=== PATIENT | female | born 1960 | race Two or more races ===

== ENCOUNTER → 2020-11-12 10:25 | Outpatient (BNVA) | payer MEDICARE, MEDICAID, SELFPAY | PROVIDERS: PCP Otolaryngology; Visit Provider Anesthesiology | DX: M19.012 Primary osteoarthritis, left shoulder (principal); M47.812 Spondylosis without myelopathy or radiculopathy, cervical region; G89.29 Other chronic pain | CPT/HCPCS: 99212 ==

== ENCOUNTER 2020-11-26 10:50 | Outpatient (REF) | payer MEDICARE, MEDICAID, SELFPAY ==
--- NOTE | ~2020-11-26 | MR_ITS ---
EXAMINATION: MR CERVICAL SPINE WITHOUT CONTRAST CLINICAL INFORMATION: 60-year-old with spondylosis without myelopathy or radiculopathy. Left-sided cervical radicular symptoms. COMPARISON: None TECHNIQUE: MRI of the cervical spine was obtained using routine sequences without contrast. FINDINGS: Alignment: Normal. Craniocervical Junction/C1-C2 Articulations:?Intact and aligned. Visualized Intracranial Structures: Within normal limits. Vertebral Bodies: Normal height. Bone Marrow: Subcentimeter benign vertebral hemangioma within the C7 vertebral body. Otherwise unremarkable. No significant bone marrow edema. C2-C3: Disc space height is well maintained. There is mild left-sided facet arthrosis. C3-C4: Disc space height is well maintained. Small central disc protrusion noted with slight flattening of the central dural sac without cord impingement. Minor facet hypertrophic change on the left. C4-C5: Disc space height is well maintained. Minor anterior marginal endplate spurring and minimal central, shallow disc protrusion. Mild facet hypertrophic change on the left. C5-C6: Moderate loss of disc space height and mild anterior marginal endplate spurring. Central disc herniation noted with [id number] flattening of the central dural sac without cord impingement. [id number] facet hypertrophic changes bilaterally, left more than right and mild uncinate process spurring on the left, with moderate left-sided neural foraminal stenosis. Mild central canal stenosis is noted. C6-C7: Disc space height is well maintained. No disc herniation, spondylosis, DJD, canal or neuroforaminal stenosis. C7-T1: Mild loss of disc space height on the right. Small central to right paramedian disc protrusion with mild flattening of the dural sac on the right without cord impingement or neural impingement. Mild facet arthrosis noted on the left and mild ligamentum flavum thickening. No significant canal or neuroforaminal stenosis. Tiny central disc protrusion at T1-2. The cervical and visualized upper thoracic spinal cord is normal in morphology, caliber and signal intensity throughout. MR/MR cervical spine wo con IMPRESSION: 1. Discogenic degenerative changes primarily at C5-6 with a central disc herniation at this level without spinal cord impingement. Mild central spinal stenosis is noted and there is mild spondylosis and facet arthrosis at this level with mild uncovertebral arthrosis on the left and moderate left-sided neural foraminal stenosis. 2. Multilevel predominately central disc protrusions as described above without spinal cord impingement or significant spinal canal stenosis. 3. Minor degrees of multilevel facet arthrosis, left more than right.
== END 2020-11-26 10:51 | disposition home or self-care (01) ==
LOC: HO.MRI 10:50
PROVIDERS: Visit Provider Anesthesiology
DX: M47.812 Spondylosis without myelopathy or radiculopathy, cervical region (principal)
CPT/HCPCS: 72141

== ENCOUNTER → 2020-12-04 13:32 | Outpatient (BNVA) | payer MEDICARE, MEDICAID, SELFPAY | PROVIDERS: PCP Physician Assistant; Visit Provider Nurse Practitioner Family | DX: M47.812 Spondylosis without myelopathy or radiculopathy, cervical region (principal) | CPT/HCPCS: Q3014 ==

== ENCOUNTER 2021-06-17 09:40 | Outpatient (REF) | payer MEDICARE, MEDICAID, SELFPAY ==
[2021-06-17 11:38] LABS: MANUAL DIFF FLAG NO
[2021-06-17 11:42] LABS: Hematocrit 40.1 % (37-47); Hemoglobin 12.8 g/dl (12.0-16.0); Mean Corpuscular HGB Conc 31.9 g/dl (31.0-35.0); Mean Corpuscular Hemoglobin 30.4 pg (27.0-33.0); Mean Corpuscular Volume 95.2 fL (80-98); Red Blood Count 4.21 X10*6/uL (4.20-5.50); White Blood Count 3.8 X10*3/uL (4.8-10.8)
[2021-06-17 11:43] LABS: Basophils Percent Auto 0.8 % (0-2); Eosinophils Absolute Auto 0.1 X10*3/uL (0.0-0.4); Eosinophils Percent Auto 1.9 % (0-4); Imm Gran Abs Auto 0.02 X10*3/uL (0.00-0.03); Imm Gran Pct Auto 0.5 % (0.0-0.4); Lymphocytes Absolute Auto 1.5 X10*3/uL (1.2-4.9); Lymphocytes Percent Auto 38.9 % (20-40); Mean Platelet Volume 12.1 fL (9.4-12.3); Monocytes Absolute Auto 0.4 X10*3/uL (0.1-1.2); Monocytes Percent Auto 11.1 % (2-11); Neutrophils Absolute Auto 1.8 X10*3/uL (2.0-8.3); Neutrophils Percent Auto 46.8 % (45-73); Platelet Count 202 X10*3/uL (160-400); Red Cell Distribution Width 12.7 % (11.0-16.0)
[2021-06-17 12:26] LABS: Erythrocyte Sedimentation Rate 25 MM/HR (0-20)
[2021-06-18 10:30] LABS: IgA 410 mg/dL (70-320); IgG 1340 mg/dL (600-1540); IgM 366 mg/dL (50-300)
[2021-06-19 13:37] LABS: Anti Nuclear Antibody Screen NEGATIVE (NEGATIVE)
[2021-06-22 15:56] LABS: Cyclic Citrullinated Peptide <16 UNITS
[2021-06-23 02:42] LABS: Angiotensin Converting Enzyme 40 U/L (9-67)
[2021-06-23 18:22] LABS: Asperg fumigatus Precip Abs NEGATIVE (NEGATIVE); Micropoly faeni Abs NEGATIVE (NEGATIVE); Pigeon serum Abs NEGATIVE (NEGATIVE); Saccharo pora viridis Abs NEGATIVE (NEGATIVE); Thermo candidus Abs NEGATIVE (NEGATIVE); Thermoa vulgaris #1 NEGATIVE (NEGATIVE)
== END 2021-06-17 09:41 | disposition home or self-care (01) ==
LOC: HO.LAB 09:40
PROVIDERS: PCP Physician Assistant; Visit Provider Hospitalist
DX: R07.81 Pleurodynia (principal); R91.8 Other nonspecific abnormal finding of lung field; R05 Cough
CPT/HCPCS: 36415; 82164; 82784; 82785; 85025; 85652; 86003; 86038; 86039; 86200; 86331; 86606; 86609; 99202

== ENCOUNTER 2021-08-23 09:27 | Outpatient (REF) | payer MEDICARE, MEDICAID, SELFPAY ==
--- NOTE | ~2021-08-23 | CT_ITS ---
EXAMINATION: CT CHEST WITHOUT CONTRAST CLINICAL INFORMATION: Followup pulmonary nodule. COMPARISON: None TECHNIQUE: Multidetector volumetric CT imaging of the chest was done. Axial MIP volume rendering provided. Sagittal and coronal reformatted images were obtained. This CT examination was performed using dose optimization techniques as appropriate, variously including the following: *Automated exposure control *Adjustment of mA and/or kV according to patient size (this includes techniques or standardized protocols for targeted exams where dose is matched to indication/reason for exam; i.e. extremities or head) *Use of iterative reconstruction technique DLP: 101 mGy-cm FINDINGS: LUNGS: There are several small clustered left apical noncalcified left upper lobe nodules, largest measuring 2 mm axial image 70 series 7. There is a 6 mm calcified right upper lobe nodule axial image 99 series 7. There are several small bilateral upper lobe nodules probably representing bronchial soft tissue opacification, for example axial image 197 series 7 in the right upper lobe. There are clustered peribronchial right middle and lower lobe nodules, largest measuring 4 mm axial image 390 and 3 mm 401 series 7 suggestive of tree-in-bud appearance or airways disease. MEDIASTINUM: There are small mediastinal lymph nodes. No enlarged lymph nodes are seen. The heart does not appear enlarged. There is no pericardial effusion. The thoracic aorta is normal in caliber. There may be a small hiatal hernia. PLEURA: There is no pleural effusion. No pleural mass or thickening. AXILLA: No lymphadenopathy. UPPER ABDOMEN: The gallbladder has been removed. OSSEOUS STRUCTURES: Unremarkable. CT/CT chest wo con IMPRESSION: Small pulmonary nodules. Largest pulmonary nodule is a 6 mm calcified right upper lobe nodule. There are small bilateral noncalcified pulmonary nodules suggestive of tree-in-bud appearance or airways disease and bronchial soft tissue opacification. According to the UPDATED 2017 Fleischner Society recommendations, the advised followup imaging for less than 6 mm nodule: Low-risk, no chest CT followup and high-risk, optional chest CT followup in 1 year.
== END 2021-08-23 09:28 | disposition home or self-care (01) ==
LOC: HO.CT 09:27
PROVIDERS: PCP Physician Assistant; Visit Provider Hospitalist
DX: R07.81 Pleurodynia (principal); R91.8 Other nonspecific abnormal finding of lung field
CPT/HCPCS: 71250

== ENCOUNTER → 2021-09-27 09:28 | Outpatient (BNVA) | payer MEDICARE, MEDICAID, SELFPAY | PROVIDERS: PCP Physician Assistant; Visit Provider Hospitalist | DX: R91.8 Other nonspecific abnormal finding of lung field (principal); R05.9 Cough, unspecified; R07.81 Pleurodynia; B02.29 Other postherpetic nervous system involvement | CPT/HCPCS: 99212 ==

== ENCOUNTER → 2022-06-03 10:14 | Outpatient (BNVA) | payer MEDICARE, MEDICAID, SELFPAY | PROVIDERS: PCP Physician Assistant; Visit Provider Hospitalist | DX: K44.9 Diaphragmatic hernia without obstruction or gangrene (principal); R91.8 Other nonspecific abnormal finding of lung field; R07.81 Pleurodynia; K21.9 Gastro-esophageal reflux disease without esophagitis; R05.3 Chronic cough | CPT/HCPCS: 99212 ==

== ENCOUNTER 2022-10-17 10:08 | Outpatient (REF) | payer MEDICARE, MEDICAID, SELFPAY ==
--- NOTE | ~2022-10-17 | CT_ITS ---
EXAMINATION: CT CHEST WITHOUT CONTRAST CLINICAL INFORMATION: Abnormal lung wang. COMPARISON: CT chest 08/23/2021. TECHNIQUE: Multidetector volumetric CT imaging of the chest was done. Axial MIP volume rendering provided. Sagittal and coronal reformatted images were obtained. This CT examination was performed using dose optimization techniques as appropriate, variously including the following: *Automated exposure control *Adjustment of mA and/or kV according to patient size (this includes techniques or standardized protocols for targeted exams where dose is matched to indication/reason for exam; i.e. 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 LUNGS: The lungs are well expanded with multiple small nodules. A calcified 4 mm nodule right lung apex image 73/6, 3 mm two intrabronchial debris or nodules right upper lobe image 184/6, 2 mm intrabronchial nodule right upper lobe anterior segment image 23/4, 2 mm intrabronchial nodule right lower lobe axial image 218/6, 3 mm intrabronchial nodule left lower lobe axial image 215/6, 3 mm nodule right middle lobe image 230/6, 3 mm nodule right middle lobe axial image 246/6, 6 mm intrabronchial nodule right middle lobe axial image 285/6, 5 mm intrabronchial nodule right middle lobe axial image 314/6. There are several additional smaller nodules seen in the right lower lobe and clustered nodules in the right middle lobe similar to previous study. MEDIASTINUM: The thyroid lobes are symmetric and normal. The central trachea and the bronchi are widely patent. Heart size and the great vessels are normal caliber. There is no pericardial effusion. No abnormal size mediastinal or hilar lymph node seen. There is no pericardial effusion. CORONARY ARTERY CALCIFICATION: None visualized on this study. PLEURA: There is no pleural effusion. No pleural mass or thickening. AXILLA: No lymphadenopathy. UPPER ABDOMEN: Visualized liver, spleen, pancreas and bilateral adrenal glands are unremarkable. The gallbladder has been surgically removed. OSSEOUS STRUCTURES: No aggressive lytic or sclerotic process seen. CT/CT chest wo IV con IMPRESSION: 1. Multiple bilateral pulmonary nodules, most of them are intrabronchial. Likely intrabronchial debris or nodules. The largest nodule measures 5 mm in the right middle lobe. A large calcified nodule is an right upper lobe. These nodules are stable. Airway disease involving the bronchus and secondary bronchioles suspicious for bronchiolitis. 2. No abnormal mediastinal or axillary lymphadenopathy seen. Fleischner guidelines were followed.
== END 2022-10-17 10:09 | disposition home or self-care (01) ==
LOC: HO.CT 10:08
PROVIDERS: PCP Physician Assistant; Visit Provider Hospitalist
DX: R91.8 Other nonspecific abnormal finding of lung field (principal)
CPT/HCPCS: 71250

== ENCOUNTER → 2022-12-01 10:24 | Outpatient (BNVA) | payer MEDICARE, MEDICAID, SELFPAY | PROVIDERS: PCP Physician Assistant; Visit Provider Hospitalist | DX: R91.8 Other nonspecific abnormal finding of lung field (principal); R10.11 Right upper quadrant pain; R07.81 Pleurodynia; R05.9 Cough, unspecified; Z90.49 Acquired absence of other specified parts of digestive tract | CPT/HCPCS: 99212 ==

== ENCOUNTER 2023-05-25 10:51 | Outpatient (AMB) | payer MEDICARE, MEDICAID, SELFPAY ==
[2023-05-25 10:56] VITALS: BP 136/70; PULSE 70; O2SAT 98; BMI 22.4
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
== END 2023-05-25 11:22 | disposition home or self-care (01) ==
PROVIDERS: PCP Physician Assistant; Visit Provider Hospitalist
DX: R91.8 Other nonspecific abnormal finding of lung field (principal); R05.9 Cough, unspecified; R07.81 Pleurodynia; K44.9 Diaphragmatic hernia without obstruction or gangrene; K21.9 Gastro-esophageal reflux disease without esophagitis
CPT/HCPCS: 99214

== ENCOUNTER → 2023-05-25 10:51 | Outpatient (BNVA) | payer MEDICARE, MEDICAID, SELFPAY | PROVIDERS: PCP Physician Assistant; Visit Provider Hospitalist | DX: R91.8 Other nonspecific abnormal finding of lung field (principal); R05.3 Chronic cough; R07.81 Pleurodynia; K44.9 Diaphragmatic hernia without obstruction or gangrene; K21.9 Gastro-esophageal reflux disease without esophagitis; Z79.899 Other long term (current) drug therapy | CPT/HCPCS: 99212 ==

== ENCOUNTER 2023-07-31 10:03 | Outpatient (AMB) | payer MEDICARE, MEDICAID, SELFPAY ==
[2023-07-31 10:14] VITALS: BP 124/74; PULSE 85; O2SAT 94; BMI 22.4
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
== END 2023-07-31 10:33 | disposition home or self-care (01) ==
PROVIDERS: PCP Physician Assistant; Visit Provider Hospitalist
DX: R91.8 Other nonspecific abnormal finding of lung field (principal); R05.9 Cough, unspecified; R07.81 Pleurodynia; K44.9 Diaphragmatic hernia without obstruction or gangrene; K21.9 Gastro-esophageal reflux disease without esophagitis
CPT/HCPCS: 99213

== ENCOUNTER 2023-07-31 10:03 | Outpatient (REF) | payer MEDICARE, MEDICAID, SELFPAY ==
[2023-07-31 14:49] LABS: Hematocrit 38.2 % (37.0-47.0); Hemoglobin 12.4 g/dl (12.0-16.0); Mean Corpuscular HGB Conc 32.5 g/dl (31.0-35.0); Mean Corpuscular Hemoglobin 30.7 pg (27.0-33.0); Mean Corpuscular Volume 94.6 fL (80.0-98.0); Mean Platelet Volume 11.1 fL (9.4-12.3); Platelet Count 215 X10*3/uL (160-400); Red Blood Count 4.04 X10*6/uL (4.20-5.50); Red Cell Distribution Width 12.7 % (11.0-16.0); White Blood Count 5.7 X10*3/uL (4.8-10.8)
[2023-07-31 15:40] LABS: Alanine Aminotransferase 16 U/L (0-31); Alkaline Phosphatase 82 U/L (39-117); Anion Gap 14 (12-20); Aspartate Amino Transferase 22 U/L (5-31); Bilirubin Total 0.3 mg/dL (0.0-1.0); Blood Urea Nitrogen 15 mg/dL (9-16); Calcium 9.3 mg/dL (8.4-10.2); Carbon Dioxide 28 mmol/L (22-29); Chloride 105 mmol/L (96-108); Estimated Glomerular Filt Rate > 60; Glucose Random 89 mg/dL (60-115); Potassium 4.5 mmol/L (3.3-5.1); Sodium 142 mmol/L (135-145); Total Protein 7.6 g/dL (6.5-8.0)
[2023-07-31 15:48] LABS: TSH reflex Free T4 1.18 uIU/mL (0.32-4.0); Vitamin D 25-OH Total 38.4 ng/mL (>30)
[2023-08-03 08:25] LABS: HBS Num1 0.24 mIU/mL (0-7.99); HBsAGNum1 0.32 S/CO (0.00-0.99); Hepatitis A Antibody IgG REACTIVE (Nonreactive); Hepatitis B Core Antibody Nonreactive (Nonreactive); Hepatitis B Surface Antigen Negative (Negative); ~Hepatitis A Antibody IgG 8.91 S/CO (0.00-0.99); ~Hepatitis B Surface Antibody NONREACTIVE (Nonreactive); ~Hepatitis C Antibody Nonreactive (Nonreactive)
[2023-08-03 13:44] LABS: Immunoglobulin A 423 mg/dL (70-320)
[2023-08-03 20:13] LABS: Transglutaminase IgA <1.0 U/mL
== END 2023-07-31 10:04 | disposition home or self-care (01) ==
LOC: HO.LAB 10:03
PROVIDERS: Absent Provider Internal Medicine; PCP Physician Assistant; Visit Provider Hospitalist
DX: R10.9 Unspecified abdominal pain (principal); K21.9 Gastro-esophageal reflux disease without esophagitis; M85.80 Other specified disorders of bone density and structure, unspecified site; Z86.010 Personal history of colon polyps; R91.8 Other nonspecific abnormal finding of lung field; R05.9 Cough, unspecified; R07.81 Pleurodynia; K44.9 Diaphragmatic hernia without obstruction or gangrene; Z11.59 Encounter for screening for other viral diseases; Z72.89 Other problems related to lifestyle
CPT/HCPCS: 36415; 80053; 82306; 82784; 84443; 85027; 86364; 86704; 86706; 86708; 86803; 87340; 99202; 99212

== ENCOUNTER 2023-07-31 13:21 | Outpatient (AMB) | payer MEDICARE, MEDICAID, SELFPAY ==
--- NOTE | 2023-07-31 13:23 | MHC.OFFVIS ---
Intake Vital Signs 07/31/23 13:24 Height 5 ft 2 in Weight 123 lb 7.342 oz BMI 22.6 BP 116/65 Blood Pressure Location Lt brachial Position Sitting Pulse 77 Intake Visit Reasons: GERD/cough/HH Intake Note: Georgiana presents in the office as a new patient for GERD and cough. CC: She states that gets pains in her stomach. She thinks she may have a hernia and she feels like that is why she is here. She gets pains in her epigastric pains and she has been having US and MRIs. Supervisor Cell Efficiency Required: No Allergies nitrofurantoin [Macrobid] Allergy (Severe, Verified 07/31/23 13:27) Infection HPI HPI Comments History of Present Illness Details This is a 63y.o F with PMH of multiple pulmonary nodules who is here to establish care for gastrointestinal issues as below. Previous GI used to be at [facility] who recently left so she is looking to switch providers. Was last seen there a year ago. Has had an EGD and colo 3-4 years ago. Reports having polyps removed from the colon. Pt reports that she has been having abd discomfort in epigastrium that radiates to her R side. Started almost 3 months ago. Assoc with nausea and loss of appetite but no unintentional weight loss. Pain is often postprandial, not assoc with bowel habit changes. Did take PPI for this which did not help much. Does not take any NSAIDs. No recent travel. She also mentions that she was told about absorption issues after she had a dexa scan that showed weak bones. [facility] Medical History (Updated 08/03/23 @ 12:56 by Shalonda Quiros MD) Hiatal hernia Hiatal hernia with GERD Post herpetic neuralgia Chest pain Chronic cough Pulmonary nodules Surgical History (Updated 07/31/23 @ 13:28 by CANDICE Roblero) Hx of colonoscopy History of esophagogastroduodenoscopy (EGD) Social History Patient Tobacco Use Status: Never used Tobacco Review of Systems Const All systems reviewed & are unremarkable except as noted in HPI and below Physical Exam Vital Signs: Last Vital Signs Pulse 77 07/31/23 13:24 BP 116/65 07/31/23 13:24 BMI result Body Mass Index 22.6 Gen appear: NAD HEENT: nonicteric, no cervical lymphadenopathy Chest: CTA CVS: Regular S1/S2 Abd: soft, nontender, nondistended, bowel sounds + Ext: no peripheral edema Neuro: A/Ox3, noted to move all extremities spontaneously Psych: interacting appropriately Assessment & Plan Assessment & Plan (1) Abdominal pain: Code(s): R10.9 - Unspecified abdominal pain (2) GERD (gastroesophageal reflux disease): Code(s): K21.9 - Gastro-esophageal reflux disease without esophagitis (3) Osteopenia: Code(s): M85.80 - Other specified disorders of bone density and structure, unspecified site (4) Personal history of colonic polyps: Code(s): Z86.010 - Personal history of colonic polyps Plan Ddx include GERD, malabsorption hugo given reported hx of ostepenia, PUD, IBD. Given pain is mostly R sided, will also check LFTs. Pt is s/p CCY. Will also book her for EGD for furhter eval of epigastric pain to r/o esophagitis, PUD. She was reassured that the hiatal hernia noted on CT was very small and does not appear to be growing based on review of films but in any case will be looked at during EGD. Pt also reports hx of colonic polyps 3-4 years ago on colo done at [facility], but unsure of recall interval. Has records at home and will call office if due. We will also have her sign a release form today to get these from [facility]. Plan: - Labs ordered as below. - EGD to booked in the next few weeks (+/- colo as above) - In the meantime, pt advised to cont taking the pepcid and discuss repeat dexa with her PCP given her reported hx of osteopenia Follow up after EGD Orders: Orders Transglutaminase IgA 07/31/23 R10.9 - Unspecified abdominal pain TSH reflex Free T4 07/31/23 R10.9 - Unspecified abdominal pain Immunoglobulin A 07/31/23 R10.9 - Unspecified abdominal pain Hepatitis B Surface Antibody 07/31/23 R10.9 - Unspecified abdominal pain Complete Blood Count no Diff 07/31/23 R10.9 - Unspecified abdominal pain Comprehensive Met. Panel 07/31/23 R10.9 - Unspecified abdominal pain Hepatitis A IgG 07/31/23 R10.9 - Unspecified abdominal pain Hepatitis B Core Antibody 07/31/23 R10.9 - Unspecified abdominal pain Hepatitis B Surface Antigen 07/31/23 R10.9 - Unspecified abdominal pain Hepatitis C Antibody 07/31/23 R10.9 - Unspecified abdominal pain Vitamin D 25-OH Total 07/31/23 M85.80 - Other specified disorders of bone density and structure, unspecified site Coding Level of Care Code New Pt Level 4 (52220) Diagnoses Abdominal pain R10.9 GERD (gastroesophageal reflux disease) K21.9 Osteopenia M85.80 Personal history of colonic polyps Z86.010
[2023-07-31 13:24] VITALS: BP 116/65; PULSE 77; BMI 22.6
== END 2023-07-31 14:42 | disposition home or self-care (01) ==
PROVIDERS: PCP Physician Assistant; Visit Provider Internal Medicine
DX: R10.9 Unspecified abdominal pain (principal); K21.9 Gastro-esophageal reflux disease without esophagitis; M85.80 Other specified disorders of bone density and structure, unspecified site; Z86.010 Personal history of colon polyps
CPT/HCPCS: 99204

== ENCOUNTER 2023-11-16 14:19 | Outpatient (AMB) | payer MEDICARE, MEDICAID, SELFPAY ==
--- NOTE | 2023-11-16 14:31 | A.OFFVIS_ITS ---
Intake Vital Signs 11/16/23 14:32 Height 5 ft 3 in Weight 119 lb BMI 21.1 BP 109/53 L Blood Pressure Location Lt brachial Position Sitting Pulse 67 Intake Visit Reasons: GERD PT request Intake Note: Patient follow up for GERD. Patient cc: abdominal pain with bloating, acid reflex some swallowing problems and constipation. 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 07/31/23: Previous GI used to be at [facility] who recently left so she is looking to switch providers. Was last seen there a year ago. Has had an EGD and colo 3-4 years ago. Reports having polyps removed from the colon. Pt reports that she has been having abd discomfort in epigastrium that radiates to her R side. Started almost 3 months ago. Assoc with nausea and loss of appetite but no unintentional weight loss. Pain is often postprandial, not assoc with bowel habit changes. Did take PPI for this which did not help much. Does not take any NSAIDs. No recent travel. She also mentions that she was told about absorption issues after she had a dexa scan that showed weak bones. 11/16/23: Was lost to follow up when office tried multiple times to contact her for EGD. Now returning for follow up for essentially unchanged upper GI complaints. Reports frequent postprandial abd discomfort with nausea. Also reports losing 50 lbs in a year however NOT corroborated by weights in chart, remains stable. Labs were reviewed with the pt and are all normal. Pt also had a dexa scan at [place] last month that confirms osteoporosis. [facility] Medical History (Updated 11/16/23 @ 15:01 by Shalonda Quiros MD) Osteopenia Hiatal hernia Hiatal hernia with GERD Post herpetic neuralgia Chest pain Chronic cough Pulmonary nodules Surgical History Hx of colonoscopy History of esophagogastroduodenoscopy (EGD) Social History Patient Tobacco Use Status: Never used Tobacco Review of Systems Const All systems reviewed & are unremarkable except as noted in HPI and below Physical Exam Vital Signs: Last Vital Signs Pulse 67 11/16/23 14:32 BP 109/53 L 11/16/23 14:32 BMI result Body Mass Index 21.1 Gen appear: NAD HEENT: nonicteric, no cervical lymphadenopathy Chest: CTA CVS: Regular S1/S2 Abd: soft, nontender, nondistended, bowel sounds + Ext: no peripheral edema Neuro: A/Ox3, noted to move all extremities spontaneously Psych: interacting appropriately Assessment & Plan Assessment & Plan (1) Abdominal pain: Code(s): R10.9 - Unspecified abdominal pain (2) GERD (gastroesophageal reflux disease): Code(s): K21.9 - Gastro-esophageal reflux disease without esophagitis (3) Personal history of colonic polyps: Code(s): Z86.010 - Personal history of colonic polyps (4) Osteoporosis: Code(s): M81.0 - Age-related osteoporosis without current pathological fracture Plan Based on work up so far, most consistent with GERD +/- esophagitis, IBS, functional dyspepsia. Given pain is mostly R sided, will also get an US RUQ. Pt is s/p CCY, LFTs were normal. Today, willing to get EGD scheduled. Pt also reports hx of colonic polyps 3-4 years ago on colo done at [facility], and does not think she is due for a repeat colo yet. Plan: - EGD to be booked in the next 4-8 weeks - Cont to take Pepcid, PPI deferred due to underlying osteoporosis - She was also advised to discuss tx with her PCP for osteoporosis - US RUQ ordered Follow up after EGD Orders: Orders US abdomen complete Today R10.9 - Unspecified abdominal pain Coding Level of Care Code Est Pt Level 4 (56336) Diagnoses Abdominal pain R10.9 GERD (gastroesophageal reflux disease) K21.9 Personal history of colonic polyps Z86.010 Osteoporosis M81.0
[2023-11-16 14:32] VITALS: BP 109/53; PULSE 67; BMI 21.1
== END 2023-11-16 16:22 | disposition home or self-care (01) ==
PROVIDERS: PCP Physician Assistant; Visit Provider Internal Medicine
DX: R10.9 Unspecified abdominal pain (principal); K21.9 Gastro-esophageal reflux disease without esophagitis; Z86.010 Personal history of colon polyps; M81.0 Age-related osteoporosis without current pathological fracture
CPT/HCPCS: 99214

== ENCOUNTER → 2023-11-16 14:19 | Outpatient (BNVA) | payer MEDICARE, MEDICAID, SELFPAY | PROVIDERS: PCP Physician Assistant; Visit Provider Internal Medicine | DX: K21.9 Gastro-esophageal reflux disease without esophagitis (principal); R10.9 Unspecified abdominal pain; M81.0 Age-related osteoporosis without current pathological fracture; Z86.010 Personal history of colon polyps | CPT/HCPCS: 99212 ==

== ENCOUNTER 2023-11-23 15:13 | Outpatient (REF) | payer MEDICARE, MEDICAID, SELFPAY ==
--- NOTE | ~2023-11-23 | CT_ITS ---
EXAMINATION: CT CHEST WITHOUT CONTRAST CLINICAL INFORMATION: Prior abnormal imaging. Follow-up pulmonary nodules. COMPARISON: 10/17/2022 and 08/23/2021 TECHNIQUE: Multidetector volumetric CT imaging of the chest was done. Axial MIP volume rendering provided. Sagittal and coronal reformatted images were obtained. This CT examination was performed using dose optimization techniques as appropriate, variously including the following: *Automated exposure control *Adjustment of mA and/or kV according to patient size (this includes techniques or standardized protocols for targeted exams where dose is matched to indication/reason for exam; i.e. extremities or head) *Use of iterative reconstruction technique DLP: 89 mGy-cm FINDINGS: LUNGS: There are multiple scattered small nodules most likely representing areas of mucus plugging. No suspicious pulmonary nodules. No airspace consolidation. Central airways are patent. MEDIASTINUM: No bulky axillary, hilar or mediastinal lymphadenopathy. Great vessels are of normal caliber. Heart size is stable. No pericardial effusion. CORONARY ARTERY CALCIFICATION: None visualized on this study. PLEURA: There is no pleural effusion. No pleural mass or thickening. UPPER ABDOMEN: Status post cholecystectomy. OSSEOUS STRUCTURES: No destructive bone lesions. CT/CT chest wo IV con IMPRESSION: Small pulmonary nodules that are most compatible with areas of mucus plugging predominantly involving the right middle lobe. This can be seen in the setting of bronchiolitis.
== END 2023-11-23 15:14 | disposition home or self-care (01) ==
LOC: HO.CT 15:13
PROVIDERS: PCP Physician Assistant; Visit Provider Hospitalist
DX: R91.8 Other nonspecific abnormal finding of lung field (principal)
CPT/HCPCS: 71250

== ENCOUNTER 2023-12-22 07:06 | Day surgery (SDC) | payer MEDICARE, MEDICAID, SELFPAY ==
[2023-12-18 09:44] VITALS: BMI 21.1
--- NOTE | 2023-12-18 15:25 | HO.ANESPROP2 ---
HPI - Anesthesia Eval Consult details Narrative: 63yo F for Upper Endoscopy PMFSH Active Problems Active Problems: All Active Problems (Updated 12/18/23 @ 09:42 by Judi Guthrie RN) Osteoporosis (Acute) Personal history of colonic polyps (Acute) GERD (gastroesophageal reflux disease) (Acute) Abdominal pain (Acute) Osteoarthritis of left shoulder (Acute) Spondylosis of cervical region without myelopathy or radiculopathy (Acute) Chronic pain (Acute) Fibromyalgia (Acute) Hiatal hernia (Acute) Hiatal hernia with GERD (Acute) Post herpetic neuralgia (Acute) Chest pain (Acute) Chronic cough (Acute) Pulmonary nodules (Acute) Past Medical History Medical History (Updated 12/18/23 @ 09:42 by Judi Guthrie RN) Osteopenia Hiatal hernia with GERD Post herpetic neuralgia Chest pain Chronic cough Pulmonary nodules Surgical History Surgical History Hx of colonoscopy History of esophagogastroduodenoscopy (EGD) Social History Social History Patient Tobacco Use Status: Never used Tobacco Meds Allergies Allergy/AdvReac Type Severity Reaction Status Date / Time nitrofurantoin [Macrobid] Allergy Severe Infection Verified 11/16/23 14:28 Home Medications Medication Instructions Recorded Confirmed Last Taken Type aspirin 81 mg tablet,delayed 81 mg PO DAILY 12/04/20 12/18/23 Unknown History release (Adult Aspirin Regimen) betamethasone valerate 0.1 % 1 appl topical DAILY 12/04/20 12/18/23 Unknown History topical ointment diclofenac sodium 1 % topical gel g topical 12/04/20 12/04/20 Unknown History albuterol sulfate 90 mcg/actuation 90 mcg inhalation Q4H PRN 09/27/21 12/18/23 Unknown History aerosol inhaler Shortness Of Breath dicyclomine 10 mg capsule 10 mg PO BID PRN Gastrointestinal 09/27/21 12/18/23 Unknown History Spasms Or Cramping escitalopram oxalate 10 mg tablet 10 mg PO DAILY 09/27/21 12/18/23 Unknown History linaclotide 145 mcg capsule 145 mcg PO DAILY 09/27/21 12/18/23 Unknown History nortriptyline 10 mg capsule 10 mg PO BEDTIME 09/27/21 12/18/23 Unknown History cyclosporine 0.09 % eye drops in a 1 drp ophthalmic (eye) BID 12/01/22 12/18/23 Unknown History dropperette (Cequa) mirabegron 25 mg tablet,extended 25 mg PO DAILY 05/25/23 12/18/23 Unknown History release 24 hr (Myrbetriq) baclofen 10 mg tablet 10 mg PO BID 07/31/23 12/18/23 Unknown History diclofenac sodium 75 mg 75 mg PO BID 07/31/23 12/18/23 Unknown History tablet,delayed release midodrine 2.5 mg tablet 2.5 mg PO BID 07/31/23 12/18/23 Unknown History fludrocortisone 0.1 mg tablet 0.05 mg PO DAILY 11/16/23 12/18/23 Unknown History pantoprazole 40 mg tablet,delayed 40 mg PO BID 11/27/23 12/18/23 Unknown History release Exam Height,Weight and Vital Signs: Height 5 ft 3 in Weight 53.977 kg Pertinent Lab Results Pertinent Lab Results: Laboratory Tests 07/31/23 14:29 WBC 5.7 Hgb 12.4 Hct 38.2 Plt Count 215 Sodium 142 Potassium 4.5 Chloride 105 Carbon Dioxide 28 BUN 15 Creatinine 0.68 Assessment and Plan Assessment Anesthesia Assessment: Chart Reviewed
[2023-12-22 07:27] VITALS: BP 107/57; PULSE 71; RESP 18; TEMP 36.1; O2SAT 99; BMI 21.3
[2023-12-22 07:30] VITALS: BMI 21.3
[2023-12-22] MEDS: Lactated Ringers 1,000 ML 100 ML IVCONT (08:09)
--- NOTE | 2023-12-22 08:09 | P.CONAN_ITS ---
[facility] Active Problems Active Problems: All Active Problems (Updated 12/18/23 @ 09:42 by Judi Guthrie RN) Osteoporosis (Acute) Personal history of colonic polyps (Acute) GERD (gastroesophageal reflux disease) (Acute) Abdominal pain (Acute) Osteoarthritis of left shoulder (Acute) Spondylosis of cervical region without myelopathy or radiculopathy (Acute) Chronic pain (Acute) Fibromyalgia (Acute) Hiatal hernia (Acute) Hiatal hernia with GERD (Acute) Post herpetic neuralgia (Acute) Chest pain (Acute) Chronic cough (Acute) Pulmonary nodules (Acute) Past Medical History Medical History Osteopenia Hiatal hernia with GERD Post herpetic neuralgia Chest pain Chronic cough Pulmonary nodules Patient : No Family History Family history of problems with anesthesia: No Surgical History Surgical History Hx of colonoscopy History of esophagogastroduodenoscopy (EGD) Social History Social History Patient Tobacco Use Status: Never used Tobacco Meds Allergies Allergy/AdvReac Type Severity Reaction Status Date / Time nitrofurantoin [Macrobid] Allergy Severe Infection Verified 11/16/23 14:28 Active Medications: Current Medications Lactated Ringer's (Lr) 1,000 mls @ 100 mls/hr IVCONT .Q10H [facility] Home Medications Medication Instructions Recorded Confirmed Last Taken Type aspirin 81 mg tablet,delayed 81 mg PO DAILY 12/04/20 12/18/23 Unknown History release (Adult Aspirin Regimen) betamethasone valerate 0.1 % 1 appl topical DAILY 12/04/20 12/18/23 Unknown History topical ointment diclofenac sodium 1 % topical gel g topical 12/04/20 12/04/20 Unknown History albuterol sulfate 90 mcg/actuation 90 mcg inhalation Q4H PRN 09/27/21 12/18/23 Unknown History aerosol inhaler Shortness Of Breath dicyclomine 10 mg capsule 10 mg PO BID PRN Gastrointestinal 09/27/21 12/18/23 Unknown History Spasms Or Cramping escitalopram oxalate 10 mg tablet 10 mg PO DAILY 09/27/21 12/18/23 Unknown History linaclotide 145 mcg capsule 145 mcg PO DAILY 09/27/21 12/18/23 Unknown History nortriptyline 10 mg capsule 10 mg PO BEDTIME 09/27/21 12/18/23 Unknown History cyclosporine 0.09 % eye drops in a 1 drp ophthalmic (eye) BID 12/01/22 12/18/23 Unknown History dropperette (Cequa) mirabegron 25 mg tablet,extended 25 mg PO DAILY 05/25/23 12/18/23 Unknown History release 24 hr (Myrbetriq) baclofen 10 mg tablet 10 mg PO BID 07/31/23 12/18/23 Unknown History diclofenac sodium 75 mg 75 mg PO BID 07/31/23 12/18/23 Unknown History tablet,delayed release midodrine 2.5 mg tablet 2.5 mg PO BID 07/31/23 12/18/23 Unknown History fludrocortisone 0.1 mg tablet 0.05 mg PO DAILY 11/16/23 12/18/23 Unknown History pantoprazole 40 mg tablet,delayed 40 mg PO BID 11/27/23 12/18/23 Unknown History release Exam Height,Weight and Vital Signs: Height 5 ft 3 in Weight 54.431 kg Last Vital Signs Temp 96.9 F 12/22/23 07:27 Pulse 71 12/22/23 07:27 Resp 18 12/22/23 07:27 BP 107/57 L 12/22/23 07:27 Pulse Ox 99 12/22/23 07:27 O2 Del Method Room Air 12/22/23 07:27 Airway Mallampati Class: II TM Dist: >3cm Neck ROM: Full Heart: RRR Lungs: CTA Assessment and Plan Assessment Anesthesia Assessment: Anesthesia Plan Discussed Final Anesthetic Review Family History of Problems with Anesthesia: No ASA Class: II Final Preanesthetic Review: Meds/Allgs Chart Reviewed, Consent Obtained/Reviewed and Anes Risks/Benef Reviewed Patient Risk: Low Procedure Risk: Low Anesthetic Plan Anesthetic Plan: MAC: Disposition: Standard PACU
--- NOTE | 2023-12-22 08:16 | P.OP_ITS ---
Operative Note Operative Note Date of Service: 12/22/23 Narrative: Procedure: Esophagogastroduodenoscopy Endoscopist: Shalonda Quiros MD Indication: Abd pain Anesthesia Provider: Dr Keri Rodriguez Anesthesia Type: MAC ?? EGD Procedure:?? The procedure, indications, preparation and potential complications were reviewed with the patient, who indicated understanding and gave written informed consent to proceed. A physical exam was performed. The endoscope was introduced through the mouth, and advanced to the second part of duodenum. The mucosa was carefully examined on slow withdrawal of the endoscope. The patient tolerated the procedure well. There were no immediate complications.? ? EGD Findings:? * Esophagus:? Normal mucosa noted in the entire esophagus. The Z line was at 34 cm and irregular to 33 cm. Cold forceps biopsies were taken to rule out Nathan's esophagus. If dysplasia present, this will also be sent for tissue cypher. A medium sized hiatal hernia was noted with the diaphragmatic pinch at 36 cm. * Stomach:? Normal mucosa was noted in the stomach. A few polyps were noted in the body of the stomach. Retroflexion in the cardia showed Hill grade II hiatal hernia. Random gastric biopsies were taken to rule out H Pylori infection. * Duodenum:? Normal mucosa was noted in the whole of the examined duodenum. Cold forceps biopsies were taken from duodenal bulb and second portion of the duodenum to rule out celiac sprue. ? EGD Impressions:? * Irregular Z line (biopsy) * Hiatal hernia * Gastric polyps * Normal gastric mucosa (biopsy) * Normal duodenum (biopsy) ?? Recommendations:?? * Follow biopsy results. Our office will call or send a letter with results within 7-10 days. * If H pylori +, patient will be prescribed eradication therapy followed by test of cure. * No evidence of erosive esophagitis on exam today. Can consider Phipps study off PPI if GERD remains a concern. * Avoid NSAIDs. Above has been reviewed with the patient.
--- NOTE | 2023-12-22 08:16 | MHC.SHP ---
Pre-Procedural Eval Section A - 24 Hr Update-Section A only Date of Service: 12/22/23 Section B - Complete if H&P > 30 days Chief Complaint: gerd, abdominal pain Details of Present Illness: PMH Osteopenia Hiatal hernia Hiatal hernia with GERD Post herpetic neuralgia Chest pain Chronic cough Pulmonary nodules Surgical History Hx of colonoscopy History of esophagogastroduodenoscopy (EGD) Present Medications: see Short Stay Collaborative assessment Allergies: Allergies Allergy/AdvReac Type Severity Reaction Status Date / Time nitrofurantoin [Macrobid] Allergy Severe Infection Verified 11/16/23 14:28 Review of Systems Review of Systems Comment: 10 point ROS negative Exam Surgical H&P Exam: Normal: HEENT, Normal: Heart, Normal: Lungs, Normal: Extremities, Normal: Abdomen, Normal: Skin and Normal: Neurological Plan Diagnosis/Plan: Unchanged I have reviewed the history and physical and performed a pertinent physical examination on my patient. No changes have occurred unless specified. Time Spent With Patient Time: Total time managing care of this patient today ____ minutes.
[2023-12-22 08:49] VITALS: BP 89/41; PULSE 71; RESP 16; TEMP 36.1; O2SAT 98
[2023-12-22 09:11] VITALS: BP 119/62; PULSE 68; RESP 17; TEMP 36.1; O2SAT 99
--- NOTE | 2023-12-22 10:26 | HO.POSTANES ---
Post Anesthesia Evaluation Post Anesthesia Evaluation Date of Service: 12/22/23 Vital Signs: Vital Signs Temp Pulse Resp BP Pulse Ox O2 Del Method 12/22/23 09:11 97.0 F 68 17 119/62 99 Room Air 12/22/23 08:49 97.0 F 71 16 89/41 L 98 Room Air 12/22/23 07:27 96.9 F 71 18 107/57 L 99 Room Air Anesthesia: Monitored Mental Status: Awake Pain Control: Satisfactory Nausea/Vomiting: None Hydration: Adequate Anesthesia-Related Issues: No Anes. Related Issues
== END 2023-12-22 10:13 | disposition home or self-care (01) ==
PROVIDERS: PCP Physician Assistant; Visit Provider Internal Medicine
PROC: 0DJ08ZZ Inspection of Upper Intestinal Tract, Via Natural or Artificial Opening Endoscopic (ICD-10-PCS; CPT 43235; principal; 2023-12-22 08:20)
DX: K31.7 Polyp of stomach and duodenum (principal); K22.70 Barrett's esophagus without dysplasia; K29.60 Other gastritis without bleeding; K22.9 Disease of esophagus, unspecified; K44.9 Diaphragmatic hernia without obstruction or gangrene; K21.9 Gastro-esophageal reflux disease without esophagitis; M81.0 Age-related osteoporosis without current pathological fracture
CPT/HCPCS: 43239; 88305; 88313; 88342; J2704

== ENCOUNTER → 2023-12-22 07:06 | Outpatient (BNV) | payer MEDICARE, MEDICAID, SELFPAY | PROVIDERS: PCP Physician Assistant; Visit Provider Internal Medicine | DX: R10.9 Unspecified abdominal pain (principal); K31.7 Polyp of stomach and duodenum; K29.70 Gastritis, unspecified, without bleeding; K22.70 Barrett's esophagus without dysplasia | CPT/HCPCS: 43239 ==

== ENCOUNTER 2024-01-06 10:46 | Outpatient (AMB) | payer MEDICARE, MEDICAID, SELFPAY ==
--- NOTE | 2024-01-06 11:08 | MHC.OFFVIS ---
Intake Vital Signs 01/06/24 11:11 Height 5 ft 3 in Weight 116 lb 13.52 oz BMI 20.7 Intake Visit Reasons: S/P EGD; Dr. Quiros Intake Note: Georgiana presents in the office as a follow up EGD. CC: She is a little unsure of her medications because she states she is sick and tired of all the medications. She states that she is having a pain that went from her head to her ears. She states that her pain in the same and she is not sure what is going on. Right flank pains, stomach pains and bloating when she eats. Allergies nitrofurantoin [Macrobid] Allergy (Severe, Verified 01/06/24 11:09) Infection HPI HPI Comments History of Present Illness Details This is a 63y.o F with PMH of multiple pulmonary nodules who is here for follow up. 07/31/23: Previous GI used to be at [facility] who recently left so she is looking to switch providers. Was last seen there a year ago. Has had an EGD and colo 3-4 years ago. Reports having polyps removed from the colon. Pt reports that she has been having abd discomfort in epigastrium that radiates to her R side. Started almost 3 months ago. Assoc with nausea and loss of appetite but no unintentional weight loss. Pain is often postprandial, not assoc with bowel habit changes. Did take PPI for this which did not help much. Does not take any NSAIDs. No recent travel. She also mentions that she was told about absorption issues after she had a dexa scan that showed weak bones. 11/16/23: Was lost to follow up when office tried multiple times to contact her for EGD. Now returning for follow up for essentially unchanged upper GI complaints. Reports frequent postprandial abd discomfort with nausea. Also reports losing 50 lbs in a year however NOT corroborated by weights in chart, remains stable. Labs were reviewed with the pt and are all normal. Pt also had a dexa scan at [place] last month that confirms osteoporosis. 12/22/23: Irregular Z line (biopsy) Hiatal hernia Gastric polyps Normal gastric mucosa (biopsy) Normal duodenum (biopsy) Path: A. Duodenum, biopsy: Duodenal mucosa within normal limits; preserved villous architecture and no increase in intraepithelial lymphocytes seen. B. Stomach, biopsy: Gastric antral mucosa with mild chronic inactive gastritis; gastric body mucosa within normal limits; negative for Helicobacter pylori, intestinal metaplasia and dysplasia. C. Gastroesophageal junction, biopsy: Squamous and columnar junctional mucosa with mild chronic active inflammation; negative for intestinal metaplasia and dysplasia. 01/06/24: Here for post EGD follow up. Results of the EGD and path reviewed which are overall reassuring. Reports no change in sx. Still complains of chest pain and pressure with bloating. Has been taking omeprazole. Stopped her nortriptyline a few months ago - she is unsure if she ran out or was asked to stop it to avoid a drug interaction. In fact tells me she stopped all her meds a few weeks ago. From chart review - has hx of anxiety and adjustment disorder. Used to see [facility] but could not form a rapport with the new therapist so stopped going 2 years ago. Also noted to have osteoporosis on dxa 09/2023 but has not been seen by endocrine. [facility] Medical History Osteopenia Hiatal hernia with GERD Post herpetic neuralgia Chest pain Chronic cough Pulmonary nodules Surgical History Hx of colonoscopy History of esophagogastroduodenoscopy (EGD) Social History Patient Tobacco Use Status: Never used Tobacco Review of Systems Const All systems reviewed & are unremarkable except as noted in HPI and below Physical Exam Vital Signs: BMI result Body Mass Index 20.7 NAD no overt resp distress Abd soft, nontender, nodistended A/Ox3, norm gait Assessment & Plan Assessment & Plan (1) Abdominal pain: Code(s): R10.9 - Unspecified abdominal pain (2) GERD (gastroesophageal reflux disease): Code(s): K21.9 - Gastro-esophageal reflux disease without esophagitis (3) Personal history of colonic polyps: Code(s): Z86.010 - Personal history of colonic polyps (4) Osteoporosis: Code(s): M81.0 - Age-related osteoporosis without current pathological fracture Plan Based on work up so far, 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 Expressed concern over multiple exposures to radiation any way due to pulm nodules but pt reports she is quite stressed about persistent abd pain and bloating and requests CT Abd/pel. Was on nortriptyline in the past but pt off it now for a few months for unclear reasons - she mentions was told to stop it but doesnt remember by who. Advised to go over med reconciliation with her PCP - hugo as she stopped all her meds recently; and if no medical indication to hold it, would recommend resuming it at 10 and increasing to 20 as below. Plan: - CT Abd/pel with IV contrast - Follow up with PCP to discuss med reconciliation as outlined above - Resume nortriptyline 10 and increase to 20 after 2 weeks - Pt encouraged to discuss endocrine referral with PCP as well - She should also follow up with [facility] for therapy - Pt also reports hx of colonic polyps 3-4 years ago on colo done at [facility], and does not think she is due for a repeat colo yet. Follow up 3 months Orders: Orders CT abdomen pelvis w IV con Today R10.9 - Unspecified abdominal pain Patient Instructions: - Please follow up with your PCP on urgent basis to go over all the medications - in future please call them before you stop any of your meds. - Pls check with your PCP why nortriptyline was stopped - from GI standpoint would recommend resuming it - You may need a referral to endocrinology for weak bones (osteoporosis) - We are also ordering a CT Abdomen for your persistent lower abd pain Coding Level of Care Code Est Pt Level 4 (42250) Diagnoses Abdominal pain R10.9 GERD (gastroesophageal reflux disease) K21.9 Personal history of colonic polyps Z86.010 Osteoporosis M81.0
[2024-01-06 11:11] VITALS: BMI 20.7
== END 2024-01-06 11:42 | disposition home or self-care (01) ==
PROVIDERS: PCP Physician Assistant; Visit Provider Internal Medicine
DX: R10.9 Unspecified abdominal pain (principal); K21.9 Gastro-esophageal reflux disease without esophagitis; Z86.010 Personal history of colon polyps; M81.0 Age-related osteoporosis without current pathological fracture
CPT/HCPCS: 99214

== ENCOUNTER → 2024-01-06 10:46 | Outpatient (BNVA) | payer MEDICARE, MEDICAID, SELFPAY | PROVIDERS: PCP Physician Assistant; Visit Provider Internal Medicine | DX: R10.9 Unspecified abdominal pain (principal); K21.9 Gastro-esophageal reflux disease without esophagitis; M81.0 Age-related osteoporosis without current pathological fracture; Z86.010 Personal history of colon polyps | CPT/HCPCS: 99212 ==

== ENCOUNTER 2024-01-29 09:40 | Outpatient (AMB) | payer MEDICARE, MEDICAID, SELFPAY ==
[2024-01-29 09:51] VITALS: BP 102/68; PULSE 79; O2SAT 97; BMI 21.3
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
== END 2024-01-29 10:17 | disposition home or self-care (01) ==
PROVIDERS: PCP Physician Assistant; Visit Provider Hospitalist
DX: R91.8 Other nonspecific abnormal finding of lung field (principal); R05.9 Cough, unspecified; R07.81 Pleurodynia; K44.9 Diaphragmatic hernia without obstruction or gangrene; K21.9 Gastro-esophageal reflux disease without esophagitis
CPT/HCPCS: 99214

== ENCOUNTER → 2024-01-29 09:40 | Outpatient (BNVA) | payer MEDICARE, MEDICAID, SELFPAY | PROVIDERS: PCP Physician Assistant; Visit Provider Hospitalist | DX: R91.8 Other nonspecific abnormal finding of lung field (principal); K44.9 Diaphragmatic hernia without obstruction or gangrene; R05.3 Chronic cough; R07.81 Pleurodynia; K21.9 Gastro-esophageal reflux disease without esophagitis | CPT/HCPCS: 99212 ==

== ENCOUNTER 2024-02-22 15:08 | Outpatient (AMB) | payer MEDICARE, MEDICAID, SELFPAY ==
--- NOTE | 2024-02-22 15:12 | A.OFFVIS_ITS ---
Vital Signs 02/22/24 15:14 Height 5 ft 3 in Weight 121 lb 4.068 oz BMI 21.5 BP 94/59 L Blood Pressure Location Lt brachial Position Sitting Pulse 85 Intake Visit Reasons: Abdominal pain Intake Note: Georgiana presents in the office as a follow up for abdominal pains. CC: BP has been low and she was told to stop her meds to see what it could be but she states that they have not found anything. She has pains in her stomach - no irregular bowel movements. She states that she goes normally. She states she has been fatigued, nausea and dealing with headaches as well. Complained of numbness in her mouth and lips. Audiovisual Production Specialist Required: No Allergies nitrofurantoin [Macrobid] Allergy (Severe, Verified 02/22/24 15:14) Infection HPI Comments Details: This is a 63y.o F with PMH of multiple pulmonary nodules who is here for follow up. 07/31/23: Previous GI used to be at [facility] who recently left so she is looking to switch providers. Was last seen there a year ago. Has had an EGD and colo 3-4 years ago. Reports having polyps removed from the colon. Pt reports that she has been having abd discomfort in epigastrium that radiates to her R side. Started almost 3 months ago. Assoc with nausea and loss of appetite but no unintentional weight loss. Pain is often postprandial, not assoc with bowel habit changes. Did take PPI for this which did not help much. Does not take any NSAIDs. No recent travel. She also mentions that she was told about absorption issues after she had a dexa scan that showed weak bones. 11/16/23: Was lost to follow up when office tried multiple times to contact her for EGD. Now returning for follow up for essentially unchanged upper GI complaints. Reports frequent postprandial abd discomfort with nausea. Also reports losing 50 lbs in a year however NOT corroborated by weights in chart, remains stable. Labs were reviewed with the pt and are all normal. Pt also had a dexa scan at [place] last month that confirms osteoporosis. 12/22/23: * Irregular Z line (biopsy) * Hiatal hernia * Gastric polyps * Normal gastric mucosa (biopsy) * Normal duodenum (biopsy) Path: A. Duodenum, biopsy: Duodenal mucosa within normal limits; preserved villous architecture and no increase in intraepithelial lymphocytes seen. B. Stomach, biopsy: Gastric antral mucosa with mild chronic inactive gastritis; gastric body mucosa within normal limits; negative for Helicobacter pylori, intestinal metaplasia and dysplasia. C. Gastroesophageal junction, biopsy: Squamous and columnar junctional mucosa with mild chronic active inflammation; negative for intestinal metaplasia and dysplasia. 01/06/24: Here for post EGD follow up. Results of the EGD and path reviewed which are overall reassuring. Reports no change in sx. Still complains of chest pain and pressure with b loating. Has been taking omeprazole. Stopped her nortriptyline a few months ago - she is unsure if she ran out or was asked to stop it to avoid a drug interaction. In fact tells me she stopped all her meds a few weeks ago. From chart review - has hx of anxiety and adjustment disorder. Used to see [facility] but could not form a rapport with the new therapist so stopped going 2 years ago. Also noted to have osteoporosis on dxa 09/2023 but has not been seen by endocrine. 02/22/24: Here for follow up with her partner. Reports an array of abd complaints as well as headache and numbness in her face. Has still not resumed any of the meds, in fact tells me her PCP and prosthodontist advised her to cont to stay off all meds for now. Only taking omeprazole epr her report. In terms of her persistent complaint of abd discomfort with bloating and poor appetite a CT abd/pel was ordered. This is [facility] for 02/24. [facility] Medical History Osteopenia Hiatal hernia with GERD Post herpetic neuralgia Chest pain Chronic cough Pulmonary nodules Surgical History Hx of colonoscopy History of esophagogastroduodenoscopy (EGD) Social History Patient Tobacco Use Status: Never used Tobacco Review of Systems Const All systems reviewed & are unremarkable except as noted in HPI and below Physical Exam Vital Signs: Last Vital Signs Pulse 85 02/22/24 15:14 BP 94/59 L 02/22/24 15:14 BMI result Body Mass Index 21.5 No apparent distress Nonicteric Abdomen soft, nondistended Alert and oriented x3, normal gait Assessment & Plan Assessment & Plan (1) Abdominal pain: Code(s): R10.9 - Unspecified abdominal pain Category: Medical (2) GERD (gastroesophageal reflux disease): Code(s): K21.9 - Gastro-esophageal reflux disease without esophagitis Category: Medical (3) Personal history of colonic polyps: Code(s): Z86.010 - Personal history of colonic polyps Category: Medical Plan Based on work up so far, 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 Now that confirms NO other behavorial meds for at least past 4 weeks, will start on Nortriptyline. CT Abd/pel awaited. Pt was educated that if this CT is normal as well, very very high threshold to repeat any CT imaging in near future for similar complaints as already has had excessive exposures to radiation from scans done for pulm nodules and abd complaints. Plan: - Cont omeprazole 20 daily. Pt was advised that given known hx of osteoporosis and no significant evidence of erosive esophagitis on EGD, this should be decreased even furhter to lowest effective dose - CT Abd/pel with IV contrast [facility] 02/24. - Start nortriptyline 10 and increase to 20 after 2 weeks - She should also follow up with [facility] for therapy - Pt also reports hx of colonic polyps 3-4 years ago on colo done at [facility], and does not think she is due for a repeat colo yet. Follow up 3 months Medications: New nortriptyline Take 1 cap at bedtime x 14 days, and then increase to 2 caps at night time to be continued until you are seen in follow up. 20 mg (2 x 10 mg) PO BEDTIME 180 caps 1RF 90 days Coding Level of Care Code Est Pt Level 4 (55745) Diagnoses Abdominal pain R10.9 GERD (gastroesophageal reflux disease) K21.9 Personal history of colonic polyps Z86.010
[2024-02-22 15:14] VITALS: BP 94/59; PULSE 85; BMI 21.5
== END 2024-02-22 15:54 | disposition home or self-care (01) ==
PROVIDERS: PCP Physician Assistant; Visit Provider Internal Medicine
DX: R10.9 Unspecified abdominal pain (principal); K21.9 Gastro-esophageal reflux disease without esophagitis; Z86.010 Personal history of colon polyps
CPT/HCPCS: 99214

== ENCOUNTER → 2024-02-22 15:08 | Outpatient (BNVA) | payer MEDICARE, MEDICAID, SELFPAY | PROVIDERS: PCP Physician Assistant; Visit Provider Internal Medicine | DX: K21.9 Gastro-esophageal reflux disease without esophagitis (principal); R10.9 Unspecified abdominal pain; Z86.010 Personal history of colon polyps | CPT/HCPCS: 99212 ==

== ENCOUNTER 2024-02-25 07:03 | Outpatient (REF) | payer MEDICARE, MEDICAID, SELFPAY ==
--- NOTE | ~2024-02-25 | CT_ITS ---
EXAMINATION: CT ABDOMEN AND PELVIS WITH CONTRAST CLINICAL INFORMATION: Unspecified abdominal pain. COMPARISON: 08/04/2022 TECHNIQUE: Multidetector volumetric images were obtained from the superior aspect of the liver through the pubic symphysis following administration 85 mL of Omnipaque 350 intravenous contrast. Sagittal and coronal reformatted images were obtained on the technologist's workstation. Oral contrast: Yes This CT examination was performed using dose optimization techniques as appropriate, variously including the following: *Automated exposure control *Adjustment of mA and/or kV according to patient size (this includes techniques or standardized protocols for targeted exams where dose is matched to indication/reason for exam; i.e. extremities or head) *Use of iterative reconstruction technique DLP: 289 mGy-cm FINDINGS: LUNG BASES: The visualized lung bases are unremarkable. LIVER, GALLBLADDER, AND BILIARY TREE: The liver is normal in size, shape, and attenuation. No focal hepatic lesion or biliary ductal dilatation is present. The gallbladder is surgically absent. PANCREAS: Unremarkable. SPLEEN: Unremarkable. ADRENAL GLANDS: Unremarkable. KIDNEYS AND URETERS: The kidneys are normal in size, shape, and attenuation. Few hypodensities too small to characterize. No hydronephrosis. No perinephric stranding. BLADDER: Unremarkable. GASTROINTESTINAL TRACT: Small and large bowel loops are of normal caliber. No small bowel obstruction. Marked stool throughout the colon. ABDOMINAL WALL: No significant hernia is appreciated. LYMPH NODES: No bulky lymphadenopathy. VASCULAR: Normal caliber abdominal aorta. PELVIC VISCERA: Uterus is surgically absent. OSSEOUS STRUCTURES: No destructive bone lesions. CT/CT abdomen pelvis w IV con IMPRESSION: No acute abnormality in the abdomen or pelvis. Constipation.
[2024-02-25 08:23] LABS: Blood Urea Nitrogen 16 mg/dL (9-16); Estimated Glomerular Filt Rate > 60
[2024-02-25] MEDS: iohexoL 350 MG/ML 100 ML INFUS..BTL 85 ML IV (09:28)
[2024-02-25] MEDS: Barium Sulfate Oral (Mocha) 450 ML ORAL.SUSP 900 ML PO (09:30)
== END 2024-02-25 07:04 | disposition home or self-care (01) ==
LOC: HO.CT 07:03
PROVIDERS: PCP Physician Assistant; Visit Provider Internal Medicine
DX: R10.9 Unspecified abdominal pain (principal)
CPT/HCPCS: 36415; 74177; 82565; 84520; Q9967

== ENCOUNTER 2024-03-25 11:55 | Outpatient (AMB) | payer MEDICARE, MEDICAID, SELFPAY ==
--- NOTE | 2024-03-25 12:05 | A.OFFVIS_ITS ---
Vital Signs 03/25/24 12:06 Height 5 ft 3 in Weight 121 lb 4.068 oz BMI 21.5 BP 99/53 L Blood Pressure Location Lt brachial Position Sitting Pulse 76 Intake Visit Reasons: 3 month f/u Intake Note: Georgiana presents in the office as a 3 month follow up. CC: She is having issues swallowing - was given amoxicillin. Stomach has been acting weird she states. Allergies nitrofurantoin [Macrobid] Allergy (Severe, Verified 03/25/24 12:07) Infection HPI Comments Details: This is a 63y.o F with PMH of multiple pulmonary nodules who is here for follow up. 07/31/23: Previous GI used to be at [facility] who recently left so she is looking to switch providers. Was last seen there a year ago. Has had an EGD and colo 3-4 years ago. Reports having polyps removed from the colon. Pt reports that she has been having abd discomfort in epigastrium that radiates to her R side. Started almost 3 months ago. Assoc with nausea and loss of appetite but no unintentional weight loss. Pain is often postprandial, not assoc with bowel habit changes. Did take PPI for this which did not help much. Does not take any NSAIDs. No recent travel. She also mentions that she was told about absorption issues after she had a dexa scan that showed weak bones. 11/16/23: Was lost to follow up when office tried multiple times to contact her for EGD. Now returning for follow up for essentially unchanged upper GI complaints. Reports frequent postprandial abd discomfort with nausea. Also reports losing 50 lbs in a year however NOT corroborated by weights in chart, remains stable. Labs were reviewed with the pt and are all normal. Pt also had a dexa scan at [place] last month that confirms osteoporosis. 12/22/23: * Irregular Z line (biopsy) * Hiatal hernia * Gastric polyps * Normal gastric mucosa (biopsy) * Normal duodenum (biopsy) Path: A. Duodenum, biopsy: Duodenal mucosa within normal limits; preserved villous architecture and no increase in intraepithelial lymphocytes seen. B. Stomach, biopsy: Gastric antral mucosa with mild chronic inactive gastritis; gastric body mucosa within normal limits; negative for Helicobacter pylori, intestinal metaplasia and dysplasia. C. Gastroesophageal junction, biopsy: Squamous and columnar junctional mucosa with mild chronic active inflammation; negative for intestinal metaplasia and dysplasia. 01/06/24: Here for post EGD follow up. Results of the EGD and path reviewed which are over all reassuring. Reports no change in sx. Still complains of chest pain and pressure with bloating. Has been taking omeprazole. Stopped her nortriptyline a few months ago - she is unsure if she ran out or was asked to stop it to avoid a drug interaction. In fact tells me she stopped all her meds a few weeks ago. From chart review - has hx of anxiety and adjustment disorder. Used to see [facility] but could not form a rapport with the new therapist so stopped going 2 years ago. Also noted to have osteoporosis on dxa 09/2023 but has not been seen by endocrine. 02/22/24: Here for follow up with her partner. Reports an array of abd complaints as well as headache and numbness in her face. Has still not resumed any of the meds, in fact tells me her PCP and career placement specialist advised her to cont to stay off all meds for now. Only taking omeprazole epr her report. In terms of her persistent complaint of abd discomfort with bloating and poor appetite a CT abd/pel was ordered. This is [facility] for 02/24. 03/25/24: Here for follow up. CT 02/24: No acute abnormality in the abdomen or pelvis. Constipation. Reports improvement in epigastric discomfort and RUQ pain since starting notriptyline. OCc has break through pain may be once a week. Does not recall the nortriptyline dose that shes taking. [facility] Medical History Osteopenia Hiatal hernia with GERD Post herpetic neuralgia Chest pain Chronic cough Pulmonary nodules Surgical History Hx of colonoscopy History of esophagogastroduodenoscopy (EGD) Social History Patient Tobacco Use Status: Never used Tobacco Review of Systems Const All systems reviewed & are unremarkable except as noted in HPI and below Physical Exam Vital Signs: Last Vital Signs Pulse 76 03/25/24 12:06 BP 99/53 L 03/25/24 12:06 BMI result Body Mass Index 21.5 No apparent distress Nonicteric Abdomen soft, nondistended Alert and oriented x3, normal gait Assessment & Plan Assessment & Plan (1) Abdominal pain: Code(s): R10.9 - Unspecified abdominal pain Category: Medical (2) GERD (gastroesophageal reflux disease): Code(s): K21.9 - Gastro-esophageal reflux disease without esophagitis Category: Medical (3) Personal history of colonic polyps: Code(s): Z86.010 - Personal history of colonic polyps Category: Medical (4) Constipation: Code(s): K59.00 - Constipation, unspecified Category: Medical Plan Based on work up so far, 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 Promising response to nortriptyline. Pt does not recall what dose shes taking, suspect may have room to increase hugo if she is having break through pain. CT Abd/pel normal except constipation. Plan: - Cont omeprazole 20 daily. Pt was advised that given known hx of osteoporosis and no significant evidence of erosive esophagitis on EGD, this should be decreased even furhter to lowest effective dose. - Cont nortriptyline ?20 - pt will call to confirm dose. If having sx on 20, will increase to 25mg. - Miralax and senna for constipation. - Pt also reports hx of colonic polyps - due for colo 2024. Msg sent. Pt requests to NOT send prep now as shes forgetful and to send it closer to the procedure date. Follow up 6 months Medications: New polyethylene glycol 3350 (Miralax) Take every other day, skip if you develop loose stools 17 grams PO .every other day 90 days 238 grams 1RF sennosides (senna) only if constipated despite miralax 17.2 mg (2 x 8.6 mg) PO DAILY 90 days PRN 90 tabs 0RF constipation omeprazole 20 mg PO DAILY 90 caps 1RF Coding Level of Care Code Est Pt Level 4 (05084) Diagnoses Abdominal pain R10.9 GERD (gastroesophageal reflux disease) K21.9 Personal history of colonic polyps Z86.010 Constipation K59.00
[2024-03-25 12:06] VITALS: BP 99/53; PULSE 76; BMI 21.5
== END 2024-03-25 12:30 | disposition home or self-care (01) ==
PROVIDERS: PCP Physician Assistant; Visit Provider Internal Medicine
DX: R10.9 Unspecified abdominal pain (principal); K21.9 Gastro-esophageal reflux disease without esophagitis; Z86.010 Personal history of colon polyps; K59.00 Constipation, unspecified
CPT/HCPCS: 99214

== ENCOUNTER → 2024-03-25 11:55 | Outpatient (BNVA) | payer MEDICARE, MEDICAID, SELFPAY | PROVIDERS: PCP Physician Assistant; Visit Provider Internal Medicine | DX: K21.9 Gastro-esophageal reflux disease without esophagitis (principal); K59.00 Constipation, unspecified; R10.9 Unspecified abdominal pain; Z86.010 Personal history of colon polyps | CPT/HCPCS: 99212 ==

== ENCOUNTER 2024-07-04 10:08 | Outpatient (AMB) | payer MEDICARE, MEDICAID, SELFPAY ==
--- NOTE | 2024-07-04 10:12 | A.OFFVIS_ITS ---
Vital Signs 07/04/24 10:14 Height 5 ft 3 in Weight 119 lb BMI 21.1 BP 102/49 L Blood Pressure Location Lt brachial Position Sitting Pulse 67 Intake Visit Reasons: F.U CT SCAN Intake Note: Patient follow up for CT scan result Patient cc: Esophagus pain, abdominal pain radiating to her RLQ/bloating, dizziness, weight loss, some difficulty swallowing and constipation. Inside Sales Trainer Required: No Accompanied by: Self / Same As Patient Allergies nitrofurantoin [Macrobid] Allergy (Severe, Verified 07/04/24 10:11) Infection HPI Comments Details: This is a 63y.o F with PMH of multiple pulmonary nodules who is here for follow up. 07/31/23: Previous GI used to be at [facility] who recently left so she is looking to switch providers. Was last seen there a year ago. Has had an EGD and colo 3-4 years ago. Reports having polyps removed from the colon. Pt reports that she has been having abd discomfort in epigastrium that radiates to her R side. Started almost 3 months ago. Assoc with nausea and loss of appetite but no unintentional weight loss. Pain is often postprandial, not assoc with bowel habit changes. Did take PPI for this which did not help much. Does not take any NSAIDs. No recent travel. She also mentions that she was told about absorption issues after she had a dexa scan that showed weak bones. 11/16/23: Was lost to follow up when office tried multiple times to contact her for EGD. Now returning for follow up for essentially unchanged upper GI complaints. Re ports frequent postprandial abd discomfort with nausea. Also reports losing 50 lbs in a year however NOT corroborated by weights in chart, remains stable. Labs were reviewed with the pt and are all normal. Pt also had a dexa scan at [place] last month that confirms osteoporosis. 12/22/23: * Irregular Z line (biopsy) * Hiatal hernia * Gastric polyps * Normal gastric mucosa (biopsy) * Normal duodenum (biopsy) Path: A. Duodenum, biopsy: Duodenal mucosa within normal limits; preserved villous architecture and no increase in intraepithelial lymphocytes seen. B. Stomach, biopsy: Gastric antral mucosa with mild chronic inactive gastritis; gastric body mucosa within normal limits; negative for Helicobacter pylori, intestinal metaplasia and dysplasia. C. Gastroesophageal junction, biopsy: Squamous and columnar junctional mucosa with mild chronic active inflammation; negative for intestinal metaplasia and dysplasia. 01/06/24: Here for post EGD follow up. Results of the EGD and path reviewed which are overall reassuring. Reports no change in sx. Still complains of chest pain and pressure with bloating. Has been taking omeprazole. Stopped her nortriptyline a few months ago - she is unsure if she ran out or was asked to stop it to avoid a drug interaction. In fact tells me she stopped all her meds a few weeks ago. From chart review - has hx of anxiety and adjustment disorder. Used to see [facility] but could not form a rapport with the new therapist so stopped going 2 years ago. Also noted to have osteoporosis on dxa 09/2023 but has not been seen by endocrine. 02/22/24: Here for follow up with her partner. Reports an array of abd complaints as well as headache and numbness in her face. Has still not resumed any of the meds, in fact tells me her PCP and wagon driver salesperson advised her to cont to stay off all meds for now. Only taking omeprazole epr her report. In terms of her persistent complaint of abd discomfort with bloating and poor appetite a CT abd/pel was ordered. This is [facility] for 02/24. 03/25/24: Here for follow up. CT 02/24: No acute abnormality in the abdomen or pelvis. Constipation. Reports improvement in epigastric discomfort and RUQ pain since starting notriptyline. OCc has break through pain may be once a week. Does not recall the nortriptyline dose that shes taking. 07/04/24: 3 month follow up. Continues with constellation of complaints including abd pain, N,V constipation. Also remains worried about weight loss although weight curve stable per Basys. Reports stopped taking nortriptyline as was also started on escitalopram. She is unsure who initiated this medication. Pharmacist advised her to take either of the two so shes only taking escitalopram as it seemed to be helping her anxiety. Pt today mentions that she in fact did get a letter from [facility] for colo follow up, so is actually due this year and not 2024. [facility] Medical History Osteopenia Hiatal hernia with GERD Post herpetic neuralgia Chest pain Chronic cough Pulmonary nodules Surgical History Hx of colonoscopy History of esophagogastroduodenoscopy (EGD) Social History Patient Tobacco Use Status: Never used Tobacco Review of Systems Const All systems reviewed & are unremarkable except as noted in HPI and below Physical Exam Vital Signs: Last Vital Signs Pulse 67 07/04/24 10:14 BP 102/49 L 07/04/24 10:14 BMI result Body Mass Index 21.1 No apparent distress Nonicteric Abdomen soft, nondistended Alert and oriented x3, normal gait Assessment & Plan Assessment & Plan (1) Abdominal pain: Code(s): R10.9 - Unspecified abdominal pain Category: Medical (2) GERD (gastroesophageal reflux disease): Code(s): K21.9 - Gastro-esophageal reflux disease without esophagitis Category: Medical (3) Personal history of colonic polyps: Code(s): Z86.010 - Personal history of colonic polyps Category: Medical (4) Constipation: Code(s): K59.00 - Constipation, unspecified Category: Medical (5) Functional dyspepsia: Code(s): K30 - Functional dyspepsia Category: Medical Plan Based on work up so far, 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 Initially had good response to nortriptyline but stopped it after discussion with pharmacist due to risk of serotogenic interaction with escitalopram. Agree that should not be on both. Attempted to call PCP office to help review options however wait time quoted by the automated line was 60 minutes . Educated pt to discuss feasibility of buspirone which may help with both - anxiety as well as FD. She has appt with her PCP tmrw. We also reviewed measures to address constipation as continues with only 2-3 BMs per week despite taking Linzess. Reports last BM was yest and very small. Went over CT scan images with the pt hugo the fecal loading. Advised modifying linzess and adding miralax as below. Plan: - Ok to DC nortriptyline - Recommend Buspirone instead of escitalopram if the latter is being given for indication of VIOLETTE - if ok from PCP standpoint. - Pt to take 2 pills of Linzess today and then add miralax daily. HOLD for loose BMs >2/day. - As outlined above, pt today reports shes due for colonoscopy this year. Msg sent to schedulers. - PEG prep sent. Pt also given ADDITIONAL instructions to take Linzess 290 once daily and miralax BID x3days prior to the procedure given severe constipation at baseline. - Low BP noted. Pt asymptomatic. Reminded to discuss if needs to resume fludrocortisone with her PCP/wagon driver salesperson. Follow up 3 months Medications: New polyethylene glycol 3350 (Miralax) 17 grams PO DAILY 510 grams 0RF 30 days peg 3350-electrolytes 236-22.74-6.74 -5.86 gram (Golytely) as per split prep instructions, until fecal effluent is clear 240 mL PO Q10M 4,000 mL 0RF colonoscopy Discontinued nortriptyline Take 1 cap at bedtime x 14 days, and then increase to 2 caps at night time to be continued until you are seen in follow up. Discontinued Reason: Doctor's Order 20 mg (2 x 10 mg) PO BEDTIME 90 days 180 caps 1RF Coding Level of Care Code Est Pt Level 5 (25276) Diagnoses Abdominal pain R10.9 GERD (gastroesophageal reflux disease) K21.9 Personal history of colonic polyps Z86.010 Constipation K59.00 Functional dyspepsia K30
[2024-07-04 10:14] VITALS: BP 102/49; PULSE 67; BMI 21.1
== END 2024-07-04 11:07 | disposition home or self-care (01) ==
PROVIDERS: PCP Physician Assistant; Visit Provider Internal Medicine
DX: K21.9 Gastro-esophageal reflux disease without esophagitis (principal); Z86.010 Personal history of colon polyps; K59.00 Constipation, unspecified; K30 Functional dyspepsia
CPT/HCPCS: 99214

== ENCOUNTER → 2024-07-04 10:08 | Outpatient (BNVA) | payer MEDICARE, MEDICAID, SELFPAY | PROVIDERS: PCP Physician Assistant; Visit Provider Internal Medicine | DX: R10.9 Unspecified abdominal pain (principal); K21.9 Gastro-esophageal reflux disease without esophagitis; K59.00 Constipation, unspecified; K30 Functional dyspepsia; Z86.010 Personal history of colon polyps | CPT/HCPCS: 99212 ==

== ENCOUNTER 2024-08-05 09:49 | Outpatient (AMB) | payer MEDICARE, MEDICAID, SELFPAY ==
[2024-08-05 09:56] VITALS: BP 118/60; PULSE 69; O2SAT 98; BMI 21.1
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
== END 2024-08-05 10:27 | disposition home or self-care (01) ==
PROVIDERS: PCP Physician Assistant; Visit Provider Hospitalist
DX: R91.8 Other nonspecific abnormal finding of lung field (principal); R05.9 Cough, unspecified; K44.9 Diaphragmatic hernia without obstruction or gangrene; K21.9 Gastro-esophageal reflux disease without esophagitis; J40 Bronchitis, not specified as acute or chronic
CPT/HCPCS: 99214

== ENCOUNTER → 2024-08-05 09:49 | Outpatient (BNVA) | payer MEDICARE, MEDICAID, SELFPAY | PROVIDERS: PCP Physician Assistant; Visit Provider Hospitalist | DX: Z01.818 Encounter for other preprocedural examination (principal); R91.8 Other nonspecific abnormal finding of lung field; J40 Bronchitis, not specified as acute or chronic; R05.9 Cough, unspecified; K21.9 Gastro-esophageal reflux disease without esophagitis; K44.9 Diaphragmatic hernia without obstruction or gangrene; Z23 Encounter for immunization | CPT/HCPCS: 90471; 90677; 99212 ==

== ENCOUNTER 2024-09-20 12:43 | Outpatient (AMB) | payer MEDICARE, MEDICAID, SELFPAY ==
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
[2024-09-20 13:02] VITALS: BP 110/60; PULSE 83; O2SAT 97; BMI 21.7
== END 2024-09-20 13:30 | disposition home or self-care (01) ==
PROVIDERS: PCP Physician Assistant; Visit Provider Hospitalist
DX: J18.9 Pneumonia, unspecified organism (principal); J45.21 Mild intermittent asthma with (acute) exacerbation; R91.8 Other nonspecific abnormal finding of lung field; R05.9 Cough, unspecified; K44.9 Diaphragmatic hernia without obstruction or gangrene; K21.9 Gastro-esophageal reflux disease without esophagitis
CPT/HCPCS: 99214

== ENCOUNTER → 2024-09-20 12:43 | Outpatient (BNVA) | payer MEDICARE, MEDICAID, SELFPAY | PROVIDERS: PCP Physician Assistant; Visit Provider Hospitalist | DX: J18.9 Pneumonia, unspecified organism (principal); J45.21 Mild intermittent asthma with (acute) exacerbation; R91.8 Other nonspecific abnormal finding of lung field; K44.9 Diaphragmatic hernia without obstruction or gangrene; K21.9 Gastro-esophageal reflux disease without esophagitis; Z79.2 Long term (current) use of antibiotics | CPT/HCPCS: 99212 ==

== ENCOUNTER 2024-10-04 10:20 | Outpatient (REF) | payer MEDICARE, MEDICAID, SELFPAY ==
--- NOTE | ~2024-10-04 | XR_ITS ---
EXAMINATION: XR CHEST CLINICAL INFORMATION: J45.21 - Mild intermittent asthma with (acute) exacerbation, patient states chest pain and shortness of breath. COMPARISON: CT chest 11/23/2023. TECHNIQUE: 2 views of the chest were obtained. FINDINGS: The lungs are well-inflated. Multiple pulmonary nodules, largest right upper lobe 4 mm, better characterized on CT scan of the chest. There is no gross pneumothorax. Dextroscoliosis of the thoracic spine with multilevel degenerative changes. Heart size within normal limits. There is no significant pleural effusion. Streaky opacities with possible peribronchial thickening in the bilateral perihilar and infrahilar regions. XR/XR chest 2V IMPRESSION: 1. Streaky opacities with possible peribronchial thickening in the bilateral perihilar and infrahilar regions. 2. Multiple pulmonary nodules, largest right upper lobe 4 mm, better characterized on CT scan of the chest. This study was presented today to October 04, 2024 for interpretation. Stat results provided at this time as requested by referring provider. Electronically signed by: Dolly Oquendo MD 10/04/2024 01:19 PM [facility]
== END 2024-10-04 10:21 | disposition home or self-care (01) ==
LOC: HO.XRAY 10:20
PROVIDERS: PCP Physician Assistant; Visit Provider Hospitalist
DX: J45.21 Mild intermittent asthma with (acute) exacerbation (principal)
CPT/HCPCS: 71046

== ENCOUNTER 2024-10-05 19:35 | Emergency (ER) | payer MEDICARE, MEDICAID, SELFPAY ==
[2024-10-05 19:41] VITALS: BP 102/58; PULSE 114; RESP 22; TEMP 36.8; O2SAT 95; BMI 21.9
--- NOTE | 2024-10-05 19:44 | ED.GENADULT ---
HPI - General Adult General Chief complaint: Dyspnea Stated complaint: abnormal x-ray of lung? Time Seen by Provider: 10/05/24 19:55 Source: patient, RN notes reviewed and old records reviewed Mode of arrival: ambulatory Limitations: no limitations History of Present Illness ED Provider: Jose Luis HPI narrative: 64-year-old female presents for evaluation of ?abnormal x-ray. ? She follows with Dr. 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 The patient reports that she sees pulmonology again tomorrow it is not sure why she was referred to the ER. She does have a cough and mild shortness of breath. Denies any fevers or chills Denies any leg swelling, chest pain Related Data Home Medications ?Medication ?Instructions ?Recorded ?Confirmed aspirin 81 mg tablet,delayed 81 mg PO DAILY 12/04/20 09/20/24 release (Adult Aspirin Regimen) betamethasone valerate 0.1 % 1 appl topical DAILY 12/04/20 09/20/24 topical ointment diclofenac sodium 1 % topical gel g topical 12/04/20 09/20/24 albuterol sulfate 90 mcg/actuation 90 mcg inhalation Q4H PRN 09/27/21 09/20/24 aerosol inhaler Shortness Of Breath linaclotide 145 mcg capsule 145 mcg PO DAILY 09/27/21 12/18/23 mirabegron 25 mg tablet,extended 25 mg PO DAILY 05/25/23 09/20/24 release 24 hr (Myrbetriq) baclofen 10 mg tablet 10 mg PO BID 07/31/23 09/20/24 fludrocortisone 0.1 mg tablet 0.05 mg PO DAILY 11/16/23 12/18/23 cyclosporine 0.05 % eye drops in a drp ophthalmic (eye) 02/22/24 09/20/24 dropperette (Restasis) vibegron 75 mg tablet (Gemtesa) 75 mg PO DAILY 08/05/24 09/20/24 benzonatate 200 mg capsule 200 mg PO BID PRN 09/20/24 09/20/24 cefpodoxime 200 mg tablet 200 mg PO Q12H 09/20/24 09/20/24 Previous Rx's ?Medication ?Instructions ?Recorded lidocaine 5 % topical patch 1 patch topical DAILY 30 days #30 09/27/21 (Lidoderm) ea aluminum-mag hydroxide-simethicone 10 ml PO TID PRN indigestion #600 06/03/22 400 mg-400 mg-40 mg/5 mL oral susp mL (Maalox Maximum Strength) melatonin 5 mg tablet 5 mg PO BEDTIME PRN sleep 30 days 01/29/24 #30 tabs polyethylene glycol 3350 17 17 g PO .every other day 90 days 03/25/24 gram/dose oral powder (Miralax) #238 grams omeprazole 20 mg capsule,delayed 20 mg PO DAILY #90 caps 06/29/24 release peg 3350-electrolytes 236 240 ml PO Q10M colonoscopy #4,000 07/04/24 gram-22.74 gram-6.74 gram-5.86 mL gram solution (Golytely) polyethylene glycol 3350 17 17 g PO DAILY 30 days #510 grams 07/04/24 gram/dose oral powder (Miralax) amoxicillin 875 mg-potassium 1 tab PO BID 8 days #16 tabs 08/05/24 clavulanate 125 mg tablet azithromycin 500 mg tablet 500 mg PO DAILY 5 days #5 tabs 09/20/24 dextromethorphan-guaifenesin ER 60 1 tab PO Q12H 14 days #28 tabs 09/20/24 mg-1,200 mg tab,extend release,12hr (Mucinex DM) methylprednisolone 4 mg tablets in See Rx Instructions PO PER PKG DIR 09/20/24 a dose pack (Medrol (Alex)) 6 days #21 ea sennosides 8.6 mg tablet (senna) 1.25 mg (0.1453 x 8.6 mg) PO DAILY 09/27/24 PRN for constipation #90 tabs dextromethorphan-guaifenesin ER 60 1 tab PO Q12H 14 days #28 tabs 10/01/24 mg-1,200 mg tab,extend release,12hr (Mucinex DM) doxycycline monohydrate 100 mg 100 mg PO BID 10 days #20 tabs 10/03/24 tablet Allergies Allergy/AdvReac Type Severity Reaction Status Date / Time nitrofurantoin [Macrobid] Allergy Severe Infection Verified 10/05/24 19:46 Review of Systems Constitutional: Constitutional: Denies body ache(s), Denies chills, Denies fever(s), Denies headache(s) and Reports malaise ENT: Denies headache(s) and Denies sore throat Cardiovascular: Cardiovascular: Denies chest pain and Reports dyspnea Respiratory: Respiratory: Reports cough, Reports dyspnea and Reports wheezing Gastrointestinal: Gastrointestinal: Denies abdominal pain, Denies nausea and Denies vomiting Musculoskeletal: Musculoskeletal: Denies back pain Integumentary/Breasts: Skin/Breast: Denies rash Neurologic: Denies headache(s) Allergic/Immunologic: Allergic/Immunologic: Reports wheezing PMFSH Past Medical History Medical History (Updated 10/05/24 @ 19:55 by Yousuf Amaya) Asthma Pneumonia Osteopenia Hiatal hernia with GERD Post herpetic neuralgia Chest pain Chronic cough Pulmonary nodules Surgical History Hx of colonoscopy History of esophagogastroduodenoscopy (EGD) Social History Social History Patient Tobacco Use Status: Never used Tobacco Physical Exam ED Vital Signs: Vital Signs - 24 hr 10/05/24 19:41 Temperature 98.3 F Pulse Rate 114 H Respiratory Rate 22 H Blood Pressure 102/58 L Pulse Oximetry 95 Oxygen Delivery Method Room Air BMI result Body Mass Index 21.9 Const General: healthy appearing, comfortable, no acute distress, alert and awake Nutritional Appearance: well nourished Orientation/consciousness: patient oriented x3 HENMT Head: Yes normocephalic and Yes atraumatic Eyes Eyelids: Yes eyelids normal Conjunctivae: conjunctivae normal Sclerae: sclerae normal Corneas: corneas normal Pupils: Equal, round and reactive pupils present EOM: EOMs intact bilaterally Neck Neck: Yes full ROM Resp Other: Mild bibasilar wheeze Effort & Inspection: normal respiratory effort, able to speak in complete sentences and not labored Cardio Other: Mild tachycardia but regular Rate: tachycardic Rhythm: regular rhythm Skin General skin exam: elasticity normal Neuro General: patient oriented x3 Cranial nerves: Yes Equal, round and reactive pupils present and Yes Bilaterally intact EOM present Cognition (Neuro): normal cognition Extrem Other: Moving all extremities well without any obvious deformities Medical Decision Making Medical Decision Making MDM Narrative: 64 female with a history of asthma, GERD, pulmonary nodule he was followed by Dr. Escobar presents for evaluation of cough with shortness of breath. She had a chest x-ray done outpatient yesterday ordered by her PCP who referred her to the ER because it was ?abnormal. ? The chest x-ray report reads ?streaky opacity and possible peribronchial thickening. The patient is due to see pulmonology tomorrow as well as Urology tomorrow. The patient started doxycycline yesterday prescribed by Dr. Escobar. She is not hypoxic, she was mildly tachycardic to 108, but does have a history of asthma and has mild wheezing. I offered to do labs with the patient, viral swabs and she declined. 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 Differential Diagnosis Differential Diagnoses: The differential diagnosis associated with the presentation includes Acute bronchitis Pneumonia Upper respiratory infection Viral syndrome Radiology Impression Discussion of test interpretation with radiology: I have reviewed the radiologist's reading. Radiologist Impression: X-ray dated 10/04/2024 XR/XR chest 2V IMPRESSION: 1. Streaky opacities with possible peribronchial thickening in the bilateral perihilar and infrahilar regions. 2. Multiple pulmonary nodules, largest right upper lobe 4 mm, better characterized on CT scan of the chest. This study was presented today to October 04, 2024 for interpretation. Stat results provided at this time as requested by referring provider. Electronically signed by: Dolly Oquendo MD 10/04/2024 01:19 PM [facility] Tests considered The following testing was considered but not selected: Labs, viral testing. Patient ultimately declined Discharge Plan Discharge Clinical Impression: Bronchitis Patient Disposition: Home, Self-Care Instructions: Acute Bronchitis (ED) Additional Instructions: Your x-ray that was done outpatient yesterday shows peribronchial thickening consistent with bronchitis. Continue the doxycycline that you were prescribed yesterday. Follow-up with pulmonology tomorrow as planned. Return for new or worsening symptoms Prescriptions: No Action omeprazole 20 mg capsule,delayed release(DR/EC) 20 mg PO DAILY Qty: 90 1RF sennosides [senna] 8.6 mg tablet 1.25 mg PO DAILY PRN (Reason: for constipation) Qty: 90 0RF dextromethorphan-guaifenesin [Mucinex DM] 60-1,200 mg tablet extended release 12 hr 1 tab PO Q12H 14 Days Qty: 28 0RF doxycycline monohydrate 100 mg tablet 100 mg PO BID 10 Days Qty: 20 0RF aspirin [Adult Aspirin Regimen] 81 mg tablet,delayed release (DR/EC) 81 mg PO DAILY diclofenac sodium 1 % gel topical betamethasone valerate 0.1 % ointment 1 appl topical DAILY linaclotide 145 mcg capsule 145 mcg PO DAILY albuterol sulfate 90 mcg/actuation HFA aerosol inhaler 90 mcg inhalation Q4H PRN (Reason: Shortness Of Breath) lidocaine [Lidoderm] 5 % adhesive patch,medicated 1 patch topical DAILY 30 Days Qty: 30 6RF Rx Instructions: leave on most painful area for up to 12 hrs alum-mag hydroxide-simeth [Maalox Maximum Strength] 400-400-40 mg/5 mL suspension 10 ml PO TID PRN (Reason: indigestion) Qty: 600 3RF Myrbetriq 25 mg tablet extended release 24 hr 25 mg PO DAILY melatonin 5 mg tablet 5 mg PO BEDTIME PRN (Reason: sleep) 30 Days Qty: 30 5RF Gemtesa 75 mg tablet 75 mg PO DAILY amoxicillin-pot clavulanate 875-125 mg tablet 1 tab PO BID 8 Days Qty: 16 0RF cyclosporine [Restasis] 0.05 % dropperette ophthalmic (eye) polyethylene glycol 3350 [Miralax] 17 gram/dose powder 17 g PO DAILY 30 Days Qty: 510 0RF peg 3350-electrolytes [Golytely] 236-22.74-6.74 -5.86 gram recon soln 240 ml PO Q10M Qty: 4000 0RF Rx Instructions: as per split prep instructions, until fecal effluent is clear baclofen 10 mg tablet 10 mg PO BID fludrocortisone 0.1 mg tablet 0.05 mg PO DAILY polyethylene glycol 3350 [Miralax] 17 gram/dose powder 17 g PO .every other day 90 Days Qty: 238 1RF Rx Instructions: Take every other day, skip if you develop loose stools benzonatate 200 mg capsule 200 mg PO BID PRN cefpodoxime 200 mg tablet 200 mg PO Q12H Rx Instructions: must administer with a meal/food azithromycin 500 mg tablet 500 mg PO DAILY 5 Days Qty: 5 0RF methylprednisolone [Medrol (Alex)] 4 mg tablets,dose pack See Rx Instructions PO PER PKG DIR 6 Days Qty: 21 0RF Rx Instructions: PO PER PKG DIR dextromethorphan-guaifenesin [Mucinex DM] 60-1,200 mg tablet extended release 12 hr 1 tab PO Q12H 14 Days Qty: 28 0RF Interventions: ED Discharge Assessment Last Done: 10/05/24 20:01 Discharge Date/Time: 10/05/24 20:02 Print Language: Nepali
[2024-10-05 20:01] VITALS: BP 102/58; PULSE 114; RESP 22; TEMP 36.8; O2SAT 95
== END 2024-10-05 20:07 | disposition home or self-care (01) ==
LOC: HO.ED 19:57
PROVIDERS: Emergency Provider Emergency Medicine; PCP Physician Assistant
DX: J40 Bronchitis, not specified as acute or chronic (principal); R06.00 Dyspnea, unspecified; R93.89 Abnormal findings on diagnostic imaging of other specified body structures; R00.0 Tachycardia, unspecified; Z79.899 Other long term (current) drug therapy
CPT/HCPCS: 99283

== ENCOUNTER 2024-10-06 14:37 | Outpatient (AMB) | payer MEDICARE, MEDICAID, SELFPAY ==
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
[2024-10-06 14:43] VITALS: BP 100/58; PULSE 86; O2SAT 97; BMI 21.5
== END 2024-10-06 15:42 | disposition home or self-care (01) ==
PROVIDERS: PCP Physician Assistant; Visit Provider Hospitalist
DX: J18.9 Pneumonia, unspecified organism (principal); J45.21 Mild intermittent asthma with (acute) exacerbation; R91.8 Other nonspecific abnormal finding of lung field; R05.9 Cough, unspecified; K44.9 Diaphragmatic hernia without obstruction or gangrene; K21.9 Gastro-esophageal reflux disease without esophagitis
CPT/HCPCS: 99214

== ENCOUNTER → 2024-10-06 14:37 | Outpatient (BNVA) | payer MEDICARE, MEDICAID, SELFPAY | PROVIDERS: PCP Physician Assistant; Visit Provider Hospitalist | DX: J18.9 Pneumonia, unspecified organism (principal); J45.21 Mild intermittent asthma with (acute) exacerbation; R91.8 Other nonspecific abnormal finding of lung field; R05.3 Chronic cough; K44.9 Diaphragmatic hernia without obstruction or gangrene; K21.9 Gastro-esophageal reflux disease without esophagitis | CPT/HCPCS: 94640; 96372; 99212; J2919 ==

== ENCOUNTER 2024-10-14 14:31 | Outpatient (AMB) | payer MEDICARE, MEDICAID, SELFPAY ==
[2024-10-14 14:45] VITALS: BP 104/60; PULSE 75; O2SAT 98; BMI 21.7
--- NOTE | 2024-10-14 14:45 | MHC.OFFVIS ---
Vital Signs 10/14/24 14:45 Height 5 ft 3 in Weight 122 lb 6 oz BMI 21.7 BP 104/60 Blood Pressure Location Rt brachial Position Sitting Pulse 75 Pulse Source Pulse Oximeter Pulse Oximetry (%) 98 Oxygen Delivery Method Room Air Intake Visit Reasons: Asthma/Sick Visit FU Allergies nitrofurantoin [Macrobid] Allergy (Severe, Verified 10/14/24 14:48) Infection HPI HPI Asthma/Sick Visit FU: Details: Georgiana is a pleasant 64 year old female, never smoker, with underlying asthma and pulmonary nodules. At baseline she is moderately controlled on albuterol MDI. She is under the care of Dr. Escobar and presents today for an acute visit. She was initially seen at [facility] ED 09/14 dx [facility] PNA, discharged with vantin and doxycyline. She had suboptimal improvement seen by Dr. Escobar on 09/20 and instructed to continue vantin, d/c doxycyline and azithromycin was added to regimen along with oral steroids. Her symptoms persisted and was seen on 10/06/[address] Escobar continuing with chest tightness, wheezing and chest congestion. She was given DuoNeb and Solumedrol IM as well as switched to doxycyline and levaquin. Today she presents reporting minimal change in symptoms. She continues with chest congestion and difficulty expectorating. A sputum sample was attempted at the prior visit and unable to produce. She continues with prednisone, no wheezing at this time. Of note, she also continues with hypotension advised to speak with cardiology regarding this or seek emergent care if worsens. [facility] Medical History (Updated 10/06/24 @ 00:01 by Ana Ledbetter) Asthma Pneumonia Osteopenia Hiatal hernia with GERD Post herpetic neuralgia Chest pain Chronic cough Pulmonary nodules Surgical History Hx of colonoscopy History of esophagogastroduodenoscopy (EGD) Social History Patient Tobacco Use Status: Never used Tobacco Review of Systems Const Denies chills, Denies excessive sweating, Reports fatigue, Denies fever(s) and Denies night sweats Eyes Denies dry eyes, Denies irritation and Denies itchy eyes ENT Reports Normal hearing present, Reports nasal congestion, Denies post nasal drip and Denies sore throat Card Denies chest pain at rest, Denies chest pain with activity, Denies claudication, Denies leg edema, Denies orthopnea and Denies paroxysmal nocturnal dyspnea Resp Reports chest congestion, Reports cough, Denies hemoptysis, Denies excessive phlegm production, Denies pain on inspiration, Denies pain with cough, Denies stridor and Reports wheezing Neuro Reports Normal hearing present Endo Denies excessive sweating and Reports fatigue Lenny/Lymph Denies lymphadenopathy Aller/Immun Denies itchy eyes, Denies seasonal rhinorrhea and Reports wheezing Physical Exam Vital Signs: Last Vital Signs Pulse 75 10/14/24 14:45 BP 104/60 10/14/24 14:45 Pulse Ox 98 10/14/24 14:45 Oxygen Delivery Method Room Air 10/14/24 14:45 BMI result Body Mass Index 21.7 Const General: cooperative, no acute distress, well developed and alert Orientation/consciousness: patient oriented x3 Limitations: no limitations HEENT Head: Yes normal to inspection, Yes normocephalic and Yes atraumatic Ears: hearing grossly normal bilaterally and external ears normal Eyes General: appearance normal, both eyes and all related structures Eyelids: Yes eyelids normal Sclerae: sclerae normal EOM: EOMs intact bilaterally Neck Neck: Yes normal visual inspection and Yes no lymphadenopathy Lymphatic: no lymphadenopathy noted Chest Chest palpation & inspection: normal inspection of the chest Resp Effort & Inspection: normal respiratory effort, able to speak in complete sentences, no audible wheezes, Actively coughing (post exhalation cough ) Quality: actively coughing, no stridor, not tachypneic, no tripod positioning and no use of accessory muscles Auscultation: no crackles, no rales, no rhonchi, no wheezes and diminished lung sounds Cardio Jugular venous distension: no JVD Rate: regular rate Rhythm: regular rhythm Skin Other: warm, dry General skin exam: no rashes or lesions noted Neuro General: patient oriented x3 Cranial nerves: Yes Normal hearing present Cognition (Neuro): normal cognition Gait exam (Neuro): Normal gait present Extrem General: Yes normal to inspection, Yes capillary refill normal, Yes no clubbing, cyanosis or edema and Yes no pedal edema Psych Appearance: grossly normal and well kempt Speech and movement: Normal speech and movement present and Clear speech present Affect: normal affect Attitude: cooperative Thought process: Normal thought process present Thought content: Normal thought content present Insight: Good insight present (Psych) Judgement: Good judgement present (Psych) Assessment & Plan Assessment & Plan (1) Pneumonia: Code(s): J18.9 - Pneumonia, unspecified organism Category: Medical Qualifiers: Pneumonia type: due to unspecified organism Laterality: right Lung location: lower lobe of lung Qualified Code(s): J18.9 - Pneumonia, unspecified organism (2) Asthma: Code(s): J45.909 - Unspecified asthma, uncomplicated Category: Medical Qualifiers: Asthma severity: mild Asthma persistence: intermittent Asthma complication type: with acute exacerbation Qualified Code(s): J45.21 - Mild intermittent asthma with (acute) exacerbation Plan At this time Georgiana continues to report minimal improvement in chest congestion and cough despite multiple courses of antibiotics. Previously prescribed vantin and azithromycin, currently finishing last few days of doxcycline and levaquin as well as a few days left of prednisone. She is unable to produce a sputum in office today and previously discussed bronchoscopy with Dr. Escobar. Will inform him of suboptimal improvement with current regimen and discuss further treatment plan which would likely include bronchoscopy and patient is agreeable to. All questions were answered and patient is in agreement of plan. Coding Level of Care Code Est Pt Level 4 (57445) Diagnoses Pneumonia of right lower lobe due to infectious organism J18.9 Pneumonia type: due to unspecified organism Laterality: right Lung location: lower lobe of lung Mild intermittent asthma with acute exacerbation J45.21 Asthma severity: mild Asthma persistence: intermittent Asthma complication type: with acute exacerbation
== END 2024-10-14 15:26 | disposition home or self-care (01) ==
PROVIDERS: PCP Physician Assistant; Visit Provider Nurse Practitioner Family
DX: J18.9 Pneumonia, unspecified organism (principal); J45.21 Mild intermittent asthma with (acute) exacerbation
CPT/HCPCS: 99214

== ENCOUNTER → 2024-10-14 14:31 | Outpatient (BNVA) | payer MEDICARE, MEDICAID, SELFPAY | PROVIDERS: PCP Physician Assistant; Visit Provider Nurse Practitioner Family | DX: J45.21 Mild intermittent asthma with (acute) exacerbation (principal); J18.9 Pneumonia, unspecified organism; R91.8 Other nonspecific abnormal finding of lung field | CPT/HCPCS: 99212 ==

== ENCOUNTER 2024-10-14 15:29 | Outpatient (REF) | payer MEDICARE, MEDICAID, SELFPAY ==
[2024-10-14 17:31] LABS: MANUAL DIFF FLAG NO
[2024-10-14 17:37] LABS: Basophils Absolute Auto 0.1 X10*3/uL (0.0-0.2); Basophils Percent Auto 0.5 % (0-2); Eosinophils Absolute Auto 0.1 X10*3/uL (0.0-0.4); Eosinophils Percent Auto 0.8 % (0-4); Hematocrit 38.7 % (37.0-47.0); Hemoglobin 12.5 g/dl (12.0-16.0); Imm Gran Abs Auto 0.35 X10*3/uL (0.00-0.03); Imm Gran Pct Auto 3.4 % (0.0-0.4); Lymphocytes Absolute Auto 3.1 X10*3/uL (1.2-4.9); Lymphocytes Percent Auto 30.6 % (20-40); Mean Corpuscular HGB Conc 32.3 g/dl (31.0-35.0); Mean Corpuscular Hemoglobin 30.9 pg (27.0-33.0); Mean Corpuscular Volume 95.6 fL (80.0-98.0); Mean Platelet Volume 10.9 fL (9.4-12.3); Monocytes Absolute Auto 1.1 X10*3/uL (0.1-1.2); Monocytes Percent Auto 11.2 % (2-11); Neutrophils Absolute Auto 5.4 x10*3/uL (2.0-8.3); Neutrophils Percent Auto 53.5 % (45-73); Platelet Count 253 X10*3/uL (160-400); Red Blood Count 4.05 X10*6/uL (4.20-5.50); Red Cell Distribution Width 13.7 % (11.0-16.0); White Blood Count 10.2 X10*3/uL (4.8-10.8)
[2024-10-14 18:05] LABS: Alanine Aminotransferase 18 U/L (0-31); Albumin Level 3.4 g/dL (3.5-5.0); Alkaline Phosphatase 81 U/L (39-117); Anion Gap 14 (12-20); Aspartate Amino Transferase 22 U/L (5-31); Bilirubin Direct 0.1 mg/dL (0.0-0.5); Bilirubin Total 0.3 mg/dL (0.0-1.0); Blood Urea Nitrogen 18 mg/dL (9-16); Calcium 8.8 mg/dL (8.4-10.2); Carbon Dioxide 28 mmol/L (22-29); Chloride 103 mmol/L (96-108); Estimated Glomerular Filt Rate > 60; Glucose Random 84 mg/dL (60-115); Potassium 3.4 mmol/L (3.3-5.1); Sodium 142 mmol/L (135-145); Total Protein 6.7 g/dL (6.5-8.0)
== END 2024-10-14 15:30 | disposition home or self-care (01) ==
LOC: HO.WFDLDS 15:29
PROVIDERS: Visit Provider Hospitalist
DX: J18.9 Pneumonia, unspecified organism (principal)
CPT/HCPCS: 36415; 80048; 80076; 85025

== ENCOUNTER 2024-11-10 13:16 | Outpatient (AMB) | payer MEDICARE, MEDICAID, SELFPAY ==
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
[2024-11-10 13:40] VITALS: BP 112/60; PULSE 86; O2SAT 99; BMI 21.7
== END 2024-11-10 14:07 | disposition home or self-care (01) ==
PROVIDERS: PCP Physician Assistant; Visit Provider Hospitalist
DX: R91.8 Other nonspecific abnormal finding of lung field (principal); R07.81 Pleurodynia; J18.9 Pneumonia, unspecified organism; J45.21 Mild intermittent asthma with (acute) exacerbation; R05.9 Cough, unspecified; K44.9 Diaphragmatic hernia without obstruction or gangrene; K21.9 Gastro-esophageal reflux disease without esophagitis
CPT/HCPCS: 99214; G2211

== ENCOUNTER → 2024-11-10 13:16 | Outpatient (BNVA) | payer MEDICARE, MEDICAID, SELFPAY | PROVIDERS: PCP Physician Assistant; Visit Provider Hospitalist | DX: R91.8 Other nonspecific abnormal finding of lung field (principal); J45.21 Mild intermittent asthma with (acute) exacerbation; J18.9 Pneumonia, unspecified organism; R07.81 Pleurodynia; K21.9 Gastro-esophageal reflux disease without esophagitis; K44.9 Diaphragmatic hernia without obstruction or gangrene | CPT/HCPCS: 99212 ==

== ENCOUNTER → 2024-11-21 14:20 | Outpatient (BNV) | payer MEDICARE, MEDICAID, SELFPAY | PROVIDERS: PCP Physician Assistant; Visit Provider Radiology Diagnostic Radiology | DX: R91.8 Other nonspecific abnormal finding of lung field (principal) | CPT/HCPCS: 71250 ==

== ENCOUNTER → 2024-11-23 12:36 | Outpatient (BNVA) | payer MEDICARE, MEDICAID, SELFPAY | PROVIDERS: PCP Physician Assistant; Visit Provider Internal Medicine | DX: R10.9 Unspecified abdominal pain (principal); K59.00 Constipation, unspecified; Z86.0100 Personal history of colon polyps, unspecified | CPT/HCPCS: 99212 ==

== ENCOUNTER 2024-11-28 14:35 | Outpatient (AMB) | payer MEDICARE, MEDICAID, SELFPAY ==
[2024-11-28 15:17] VITALS: BP 96/58; PULSE 81; O2SAT 98; BMI 21.9
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
== END 2024-11-28 15:47 | disposition home or self-care (01) ==
PROVIDERS: PCP Physician Assistant; Visit Provider Hospitalist
DX: R91.8 Other nonspecific abnormal finding of lung field (principal); R07.81 Pleurodynia; J18.9 Pneumonia, unspecified organism; J45.21 Mild intermittent asthma with (acute) exacerbation; R05.9 Cough, unspecified; K44.9 Diaphragmatic hernia without obstruction or gangrene; K21.9 Gastro-esophageal reflux disease without esophagitis; B02.29 Other postherpetic nervous system involvement
CPT/HCPCS: 99214; G2211

== ENCOUNTER → 2024-11-28 14:35 | Outpatient (BNVA) | payer MEDICARE, MEDICAID, SELFPAY | PROVIDERS: PCP Physician Assistant; Visit Provider Hospitalist | DX: R91.8 Other nonspecific abnormal finding of lung field (principal); R07.81 Pleurodynia; J45.21 Mild intermittent asthma with (acute) exacerbation; J18.9 Pneumonia, unspecified organism; R05.3 Chronic cough; K44.9 Diaphragmatic hernia without obstruction or gangrene; K21.9 Gastro-esophageal reflux disease without esophagitis; B02.29 Other postherpetic nervous system involvement | CPT/HCPCS: 99212 ==

== ENCOUNTER 2024-12-09 13:56 | Outpatient (AMB) | payer MEDICARE, MEDICAID, SELFPAY ==
--- NOTE | 2024-12-09 14:00 | A.OFFVIS_ITS ---
Vital Signs 12/09/24 14:02 Height 5 ft 3 in Weight 116 lb 13.52 oz BMI 20.7 BP 92/51 L Blood Pressure Location Lt brachial Position Sitting Pulse 88 Intake Visit Reasons: abdominal pains worsening Intake Note: Georgiana presents in the office as a follow up for her worsening abdominal pains. CC: Pains in the stomach and in the right flank area. She is having bad back pains all over. She also is complaining of a headache. She states that she was seen in [facility]. She has not gotten any results with her blood or xrays/ Per Diem Registered Nurse Required: No Allergies nitrofurantoin [Macrobid] Allergy (Severe, Verified 12/09/24 14:02) Infection HPI Comments Details: This is a 63y.o F with PMH of multiple pulmonary nodules who is here for follow up. 07/31/23: Previous GI used to be at [facility] who recently left so she is looking to switch providers. Was last seen there a year ago. Has had an EGD and colo 3-4 years ago. Reports having polyps removed from the colon. Pt reports that she has been having abd discomfort in epigastrium that radiates to her R side. Started almost 3 months ago. Assoc with nausea and loss of appetite but no unintentional weight loss. Pain is often postprandial, not assoc with bowel habit changes. Did take PPI for this which did not help much. Does not take any NSAIDs. No recent travel. She also mentions that she was told about absorption issues after she had a dexa scan that showed weak bones. 11/16/23: Was lost to follow up when office tried multiple times to contact her for EGD. Now returning for follow up for essentially unchanged upper GI complaints. Reports frequent postprandial abd discomfort with nausea. Also reports losing 50 lbs in a year however NOT corroborated by weights in chart, remains stable. Labs were reviewed with the pt and are all normal. Pt also had a dexa scan at [facility] last month that confirms osteoporosis. 12/22/23: * Irregular Z line (biopsy) * Hiatal hernia * Gastric polyps * Normal gastric mucosa (biopsy) * Normal duodenum (biopsy) Path: A. Duodenum, biopsy: Duodenal mucosa within normal limits; preserved villous architecture and no increase in intraepithelial lymphocytes seen. B. Stomach, biopsy: Gastric antral mucosa with mild chronic inactive gastritis; gastric body mucosa within normal limits; negative for Helicobacter pylori, intestinal metaplasia and dysplasia. C. Gastroesophageal junction, biopsy: Squamous and columnar junctional mucosa with mild chronic active inflammation; negative for intestinal metaplasia and dysplasia. 01/06/24: Here for post EGD follow up. Results of the EGD and path reviewed which are overall reassuring. Reports no change in sx. Still complains of chest pain and pressure with bloating. Has been taking omeprazole. Stopped her nortriptyline a few months ago - she is unsure if she ran out or was asked to stop it to avoid a drug interaction. In fact tells me she stopped all her meds a few weeks ago. From chart review - has hx of anxiety and adjustment disorder. Used to see [facility] but could not form a rapport with the new therapist so stopped going 2 years ago. Also noted to have osteoporosis on dxa 09/2023 but has not been seen by endocrine. 02/22/24: Here for follow up with her partner. Reports an array of abd complaints as well as headache and numbness in her face. Has still not resumed any of the meds, in fact tells me her PCP and income tax auditor advised her to cont to stay off all meds for now. Only taking omeprazole epr her report. In terms of her persistent complaint of abd discomfort with bloating and poor appetite a CT abd/pel was ordered. This is miles for 02/24. 03/25/24: Here for follow up. CT 02/24: No acute abnormality in the abdomen or pelvis. Constipation. Reports improvement in epigastric discomfort and RUQ pain since starting notri ptyline. OCc has break through pain may be once a week. Does not recall the nortriptyline dose that shes taking. 07/04/24: 3 month follow up. Continues with constellation of complaints including abd pain, N,V constipation. Also remains worried about weight loss although weight curve stable per [employer]. Reports stopped taking nortriptyline as was also started on escitalopram. She is unsure who initiated this medication. Pharmacist advised her to take either of the two so shes only taking escitalopram as it seemed to be helping her anxiety. Pt today mentions that she in fact did get a letter from [facility] for colo follow up, so is actually due this year and not 2024. 11/23/24: Here for follow up. Canceled her colonoscopy appt last month as pt was under the impression she had one recently. ALso had covid. Pt reports she was able to call [facility] and find out her colonoscopy was in March 2017. She is now amenable to miles this. ALso getting pulm work up done for chronic RML mucus plugging. Bronchoscopy pending. 12/09/24: Here as urgent visit for R flank pain and burning which shifts to L side if she lays on that side. Ongoing x 1 week. Being managed as possible post herpetic neuralgia by her offshore wind turbine technician. No other GI complaints with this to include changes in appetite, N/V. Pt had brought up occ dysphagia to offshore wind turbine technician, but does not report any significant burdent of sx to me today. In fact inquires if needs to do barium swallow as already has had almost 10 XRay/CTs in the past year. [facility] Medical History Asthma Pneumonia Osteopenia Hiatal hernia with GERD Post herpetic neuralgia Chest pain Chronic cough Pulmonary nodules Surgical History Hx of colonoscopy History of esophagogastroduodenoscopy (EGD) Social History Patient Tobacco Use Status: Never used Tobacco Review of Systems Const All systems reviewed & are unremarkable except as noted in HPI and below Physical Exam Vital Signs: Last Vital Signs Pulse 88 12/09/24 14:02 BP 92/51 L 12/09/24 14:02 BMI result Body Mass Index 20.7 No apparent distress Nonicteric Abdomen soft, nondistended, excoriation serna on R and L flank Alert and oriented x3, normal gait Assessment & Plan Assessment & Plan (1) Abdominal pain: Code(s): R10.9 - Unspecified abdominal pain Category: Medical (2) Functional dyspepsia: Code(s): K30 - Functional dyspepsia Category: Medical (3) Constipation: Code(s): K59.00 - Constipation, unspecified Category: Medical (4) GERD (gastroesophageal reflux disease): Code(s): K21.9 - Gastro-esophageal reflux disease without esophagitis Category: Medical (5) Chronic pain: Code(s): G89.29 - Other chronic pain Category: Medical Qualifiers: Chronic pain type: other chronic pain Qualified Code(s): G89.29 - Other chronic pain (6) Fibromyalgia: Code(s): M79.7 - Fibromyalgia Category: Medical Plan Flank pain and burning Urgent visit booked by pt today for shifting R and L sided flank pain with burning. No accompanying GI sx with this. Has not been able to get lidoderm patches yet. On exam has no lesions/nodules. Excoriation serna noted. Plan: - Agree with topical lidocaine - Can also apply calamine lotion ad galo - Dicyclomine 10 mg given to trial to see if this is atypical abd cramping and spasm. ?? Dysphagia Reported this to offshore wind turbine technician but today is ambivalent about severity of sx. Is thinking to possibly cancel the barium swallow test. Pt educated that if has frequent sensation of food getting stuck or difficult swallowing, barium swallow may have value in outlining esophageal dysmotility. Will also add EGD to her colon that is being scheduled Follow up after EGD/colo Medications: New dicyclomine 10 mg PO TID 90 days PRN 120 caps 0RF abdominal pain Coding Level of Care Code Est Pt Level 4 (45261) Diagnoses Abdominal pain R10.9 Functional dyspepsia K30 Constipation K59.00 GERD (gastroesophageal reflux disease) K21.9 Other chronic pain G89.29 Chronic pain type: other chronic pain Fibromyalgia M79.7
[2024-12-09 14:02] VITALS: BP 92/51; PULSE 88; BMI 20.7
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
--- OUTSIDE RECORDS SUMMARY | 2024-12-09 14:24 | XMS_ITS | Encounter Summary ---
Author Organization [facility] Address [address] [place] [address] Care Team Providers Care Manufacture Specialist Name Role Phone Jossie Perkins MD Primary Care Provider Un available Sonal Sandhu Primary [facility] Rj Arce MD Primary Care Provider Reina antonio Encounter Details Date Type Department Care Team Description 04/04/2017 [facility] Medical Records [address] [place] [address] Social History Tobacco Use Types Packs/Day Years Used Date Smoking Tobacco: Never Smokeless Tobacco: Never Alcohol Use Standard Drinks/Week Comments No 0 (1 standard drink = 0.6 oz pur e alcohol) Sex Assigned at Date Recorded Not on file documented as of this encounter Plan of Treatment Not on file documented as of this encounter Visit Diagnoses Not on filedocumented in this encounter Care Teams Manufacture Specialist Relationship Specialty Start Date End Date Jossie Perkins MD PCP - General Internal Medicine 05/13/17 Sonal Sandhu PCP - General Internal Medicine 04/13/19 Rj Arce MD PCP - General 07/14/18 04/12/19 documented as of this encounter
--- OUTSIDE RECORDS SUMMARY | 2024-12-09 14:24 | XMS_ITS | Encounter Summary ---
Author Organization [facility] Address [address] [place] [address] Care Team Providers Care Office Administrative Assistant Name Role Phone Jossie Perkins MD Primary Care Provider Un available Sonal Sandhu Primary Care Provider Unavailabl e Rj Arce MD Primary Care Provider Reina antonio Encounter Details Date Type Department Care Team Description 07/01/2017 Ux Lead Report Medical Records [address] [place] [address] Linette Palomares, LYNDSEY Social History Tobacco Use Types Packs/Day Years Used Date Smoking Tobacco: Never Sex Assigned at Date Recorded Not on file documented as of this encounter Plan of Treatment Not on file documented as of this encounter Visit Diagnoses Not on filedocumented in this encounter Care Teams Office Administrative Assistant Relationship Specialty Start Date End Date Jossie Perkins MD PCP - General Internal Medicine 05/13/17 Sonal Sandhu PCP - General Internal Medicine 04/13/19 Rj Arce MD PCP - General 07/14/18 04/12/19 documented as of this encounter
--- OUTSIDE RECORDS SUMMARY | 2024-12-09 14:24 | XMS_ITS | Encounter Summary ---
Author Organization [facility] Address [address] [place] [address] Care Team Providers Care Line Fixer Name Role Phone Jossie Perkins MD Primary Care Provider Un available Sonal Sandhu Primary Care Provider Unavailabl e Rj Arce MD Primary Care Provider Reina antonio Encounter Details Date Type Department Care Team Description 06/10/2014 Sales Branch Manager Report Medical Records [address] [place] [address] Linette Palomares, LYNDSEY Social History Tobacco Use Types Packs/Day Years Used Date Smoking Tobacco: Never Assessed Sex Assigned at Date Recorded Not on file documented as of this encounter Plan of Treatment Not on file documented as of this encounter Visit Diagnoses Not on filedocumented in this encounter Care Teams Line Fixer Relationship Specialty Start Date End Date Jossie Perkins MD PCP - General Internal Medicine 05/13/17 Sonal Sandhu PCP - General Internal Medicine 04/13/19 Rj Arce MD PCP - General 07/14/18 04/12/19 documented as of this encounter
--- OUTSIDE RECORDS SUMMARY | 2024-12-09 14:24 | XMS_ITS | Encounter Summary ---
Author Organization [facility] Address [address] [place] [address] Care Team Providers Care Compensation Vice President Name Role Phone Jossie Perkins MD Primary Care Provider Un available Sonal Sandhu Primary Care Provider Unavailabl e Rj Arce MD Primary Care Provider Reina antonio Encounter Details Date Type Department Care Team Description 05/26/2017 Cuff Cutter Report Medical Records [address] [place] [address] Linette Palomares, LYNDSEY Social History Tobacco Use Types Packs/Day Years Used Date Smoking Tobacco: Never Sex Assigned at Date Recorded Not on file documented as of this encounter Plan of Treatment Not on file documented as of this encounter Visit Diagnoses Not on filedocumented in this encounter Care Teams Compensation Vice President Relationship Specialty Start Date End Date Jossie Perkins MD PCP - General Internal Medicine 05/13/17 Sonal Sandhu PCP - General Internal Medicine 04/13/19 Rj Arce MD PCP - General 07/14/18 04/12/19 documented as of this encounter
--- OUTSIDE RECORDS SUMMARY | 2024-12-09 14:24 | XMS_ITS | Encounter Summary ---
Author Organization [facility] Address [address] [place] [address] Care Team Providers Care Horse Show Manager Name Role Phone Jossie Perkins MD Primary Care Provider Un available Sonal Sandhu Primary Care Provider Rj Blair MD Primary Care Provider Reina antonio Encounter Details Date Type Department Care Team Description 07/17/2017 Head Of Biology Report Medical Records [address] [place] [id number] Anne Gee Social History Tobacco Use Types Packs/Day Years Used Date Smoking Tobacco: Never Sex Assigned at Date Recorded Not on file documented as of this encounter Plan of Treatment Not on file documented as of this encounter Visit Diagnoses Not on filedocumented in this encounter Care Teams Horse Show Manager Relationship Specialty Start Date End Date Jossie Perkins MD PCP - General Internal Medicine 05/13/17 Sonal Sandhu PCP - General Internal Medicine 04/13/19 Rj Arce MD PCP - General 07/14/18 04/12/19 documented as of this encounter
--- OUTSIDE RECORDS SUMMARY | 2024-12-09 14:24 | XMS_ITS | Encounter Summary ---
Author Organization [facility] Address [address] [place] [address] Care Team Providers Care Gas Station Operator Name Role Phone Sonal Sandhu Primary Care Provider Unavailabl e Encounter Details Date Type Department Care Team Description 09/17/2023 Orders Only Medical Records [address] [place] [id number] Qian Lincoln PA-C Social History Tobacco Use Types Packs/Day Years Used Date Smoking Tobacco: Never Smokeless Tobacco: Never Alcohol Use Standard Drinks/Week Comments No 0 (1 standard drink = 0.6 oz pur e alcohol) Sex Assigned at Date Recorded Not on file documented as of this encounter Plan of Treatment Not on file documented as of this encounter Procedures Procedure Name Priority Date/Time Associated Diagnosis Comments OUTSIDE CT Routine 07/29/2023 documented in this encounter Results * OUTSIDE CT (07/29/2023) Qian Lincoln PA-C RADIOLOGY documented in this encounter Visit Diagnoses Not on filedocumented in this encounter Care Teams Gas Station Operator Relationship Specialty Start Date End Date Sonal Sandhu PCP - General Internal Medicine 04/13/19 documented as of this encounter
--- OUTSIDE RECORDS SUMMARY | 2024-12-09 14:24 | XMS_ITS | Encounter Summary ---
Author Organization [facility] Address [address] [place] [address] Care Team Providers Care Talent Consultant Name Role Phone Jossie Perkins MD Primary Care Provider Un available Sonal Sandhu Primary Care Provider Rj Blair MD Primary Care Provider Reina antonio Encounter Details Date Type Department Care Team Description 05/29/2017 Income Tax Adjuster Report Medical Records [address] [place] [id number] [place], [place] [address]Med MD Social History Tobacco Use Types Packs/Day Years Used Date Smoking Tobacco: Never Sex Assigned at Date Recorded Not on file documented as of this encounter Plan of Treatment Not on file documented as of this encounter Visit Diagnoses Not on filedocumented in this encounter Care Teams Talent Consultant Relationship Specialty Start Date End Date Jossie Perkins MD PCP - General Internal Medicine 05/13/17 Sonal Sandhu PCP - General Internal Medicine 04/13/19 Rj Arce MD PCP - General 07/14/18 04/12/19 documented as of this encounter
--- OUTSIDE RECORDS SUMMARY | 2024-12-09 14:24 | XMS_ITS | Encounter Summary ---
Author Organization [facility] Address [address] [place] [address] Care Team Providers Care Self Rising Flour Mixer Name Role Phone Jossie Perkins MD Primary Care Provider Un available Sonal Sandhu Primary Care Provider [facility] Rj Arce MD Primary Care Provider Reina antonio Encounter Details Date Type Department Care Team Description 04/01/2018 Installation Manager Report Medical Records [address] [place] [id number] Kem Nicholson Social History Tobacco Use Types Packs/Day Years [...] on filedocumented in this encounter Care Teams Self Rising Flour Mixer Relationship Specialty Start Date End Date Jossie Perkins MD PCP - General Internal Medicine 05/13/17 Sonal Sandhu PCP - General Internal Medicine 04/13/19 Rj Arce MD PCP - General 07/14/18 04/12/19 documented as of this encounter
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
--- OUTSIDE RECORDS SUMMARY | 2024-12-09 14:24 | XMS_ITS | Encounter Summary ---
Author Organization [facility] Address [address] [place] [address] Care Team Providers Care Die Cast Engineer Name Role Phone Jossie Perkins MD Primary Care Provider Un available Sonal Sandhu Primary Care Provider Rj Blair MD Primary Care Provider Reina antonio Encounter Details Date Type Department Care Team Description 08/14/2017 Port Purser Report Medical Records [address] [place] [id number] [place], [place] [address]Med MD Social History Tobacco Use Types Packs/Day Years Used Date Smoking Tobacco: Never Sex Assigned at Date Recorded Not on file documented as of this encounter Plan of Treatment Not on file documented as of this encounter Visit Diagnoses Not on filedocumented in this encounter Care Teams Die Cast Engineer Relationship Specialty Start Date End Date Jossie Perkins MD PCP - General Internal Medicine 05/13/17 Sonal Sandhu PCP - General Internal Medicine 04/13/19 Rj Arce MD PCP - General 07/14/18 04/12/19 documented as of this encounter
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
--- OUTSIDE RECORDS SUMMARY | 2024-12-09 14:24 | XMS_ITS | Encounter Summary ---
Author Organization [facility] Address [address] [place] [address] Care Team Providers Care Ophthalmology Assistant Name Role Phone Jossie Perkins MD Primary Care Provider Un available Sonal Sandhu Primary Care Provider Unavailabl e Rj Arce MD Primary Care Provider Reina antonio Encounter Details Date Type Department Care Team Description 09/17/2017 Fire Sprinkler Fitter Report Medical Records [address] [place] [address] Linette Palomares, LYNDSEY Social History Tobacco Use Types Packs/Day Years Used Date Smoking Tobacco: Never Sex Assigned at Date Recorded Not on file documented as of this encounter Plan of Treatment Not on file documented as of this encounter Visit Diagnoses Not on filedocumented in this encounter Care Teams Ophthalmology Assistant Relationship Specialty Start Date End Date Jossie Perkins MD PCP - General Internal Medicine 05/13/17 Sonal Sandhu PCP - General Internal Medicine 04/13/19 Rj Arce MD PCP - General 07/14/18 04/12/19 documented as of this encounter
--- OUTSIDE RECORDS SUMMARY | 2024-12-09 14:24 | XMS_ITS | Encounter Summary ---
Author Organization [facility] Address [address] [place] [address] Care Team Providers Care Die Casting Supervisor Name Role Phone Jossie Perkins MD Primary Care Provider Un available Sonal Sandhu Primary Care Provider Rj Blair MD Primary Care Provider Reina antonio Encounter Details Date Type Department Care Team Description 04/02/2017 Hospital Medical Records [address] [place] [address] Trevin Garcia [address] [place] [address], [address] [address] Social History Tobacco Use Types Packs/Day Years [...] filedocumented in this encounter Care Teams Die Casting Supervisor Relationship Specialty Start Date End Date Jossie Perkins MD PCP - General Internal Medicine 05/13/17 Sonal Sandhu PCP - General Internal Medicine 04/13/19 Rj Arce MD PCP - General 07/14/18 04/12/19 documented as of this encounter
--- OUTSIDE RECORDS SUMMARY | 2024-12-09 14:24 | XMS_ITS | Encounter Summary ---
Author Organization [facility] Address [address] [place] [address] Care Team Providers Care Rotary Derrick Operator Name Role Phone Sonal Sandhu Primary Care Provider Rj Blair MD Primary Care Provider Reina antonio Encounter Details Date Type Department Care Team Description 02/03/2019 Axle Turner Report Medical Records [address] [place] [address] Patrizia Gray Social History Tobacco Use Types Packs/Day Years [...] on filedocumented in this encounter Care Teams Rotary Derrick Operator Relationship Specialty Start Date End Date Sonal Sandhu PCP - General Internal Medicine 04/13/19 Rj Arce MD PCP - General 07/14/18 04/12/19 documented as of this encounter
--- OUTSIDE RECORDS SUMMARY | 2024-12-09 14:24 | XMS_ITS | Encounter Summary ---
Author Organization [facility] Address [address] [place] [address] Care Team Providers Care Miller Helper Name Role Phone Sonal Sandhu Primary Care Provider Unavailabl e Encounter Details Date Type Department Care Team Description 10/09/2023 Transfer Records Vascular Surgery - [address] [id number] Records, Transfer Social History Tobacco Use Types Packs/Day Years [...] on filedocumented in this encounter Care Teams Miller Helper Relationship Specialty Start Date End Date Sonal Sandhu PCP - General Internal Medicine 04/13/19 documented as of this encounter
== END 2024-12-09 16:39 | disposition home or self-care (01) ==
PROVIDERS: PCP Physician Assistant; Visit Provider Internal Medicine
DX: R10.9 Unspecified abdominal pain (principal); K30 Functional dyspepsia; K59.00 Constipation, unspecified; K21.9 Gastro-esophageal reflux disease without esophagitis; G89.29 Other chronic pain; M79.7 Fibromyalgia
CPT/HCPCS: 99214

== ENCOUNTER → 2024-12-09 13:56 | Outpatient (BNVA) | payer MEDICARE, MEDICAID, SELFPAY | PROVIDERS: PCP Physician Assistant; Visit Provider Internal Medicine | DX: R10.9 Unspecified abdominal pain (principal); K59.00 Constipation, unspecified; K30 Functional dyspepsia; K21.9 Gastro-esophageal reflux disease without esophagitis; M79.7 Fibromyalgia; G89.29 Other chronic pain | CPT/HCPCS: 99212 ==

== ENCOUNTER 2024-12-23 10:03 | Outpatient (REF) | payer MEDICARE, MEDICAID, SELFPAY ==
--- NOTE | ~2024-12-23 | FL_ITS ---
EXAMINATION: XR UPPER GI SERIES WITH SMALL BOWEL CLINICAL INFORMATION: Gastroesophageal reflux disease without esophagitis COMPARISON: None available. TECHNIQUE: Routine upper GI contrast study was performed in upright and lying position. FINDINGS: Following oral administration of thick barium and effervescent granules and upright view there is normal propagation bolus from the oral cavity through the pharynx, esophagus and the stomach without any evidence of obstruction, narrowing or stricture. The course, caliber and peristalsis of the stomach, duodenal bulb and sweep is normal. The mucosal pattern of the esophagus, stomach and duodenum is normal. This C-loop appears unremarkable. There is a moderate gastroesophageal reflux with small sliding hiatal hernia. FLUOROSCOPY TIME: 1 minute 20 seconds DOSE AREA PRODUCT: 798.6 uGy-m2 (microgray-meter squared) FL/FL upper GI w air w Ba Swallow IMPRESSION: Moderate gastroesophageal reflux with a small sliding hiatal hernia. Electronically signed by: Manuelito Leon MD 12/23/2024 11:55 AM [facility]
--- OUTSIDE RECORDS SUMMARY | 2024-12-23 11:13 | XMS_ITS | Encounter Summary ---
Author Organization [facility] Address [address] [place] [address] Care Team Providers Care Consolidation Accountant Name Role Phone Jossie Perkins MD Primary Care Provider Un available Sonal Sandhu Primary Care Provider [facility] Rj Arce MD Primary Care Provider Reina antonio Encounter Details Date Type Department Care Team Description 04/01/2018 Clinical Molecular Geneticist Report Medical Records [address] [place] [address] Kem Nicholson Social History Tobacco Use Types [...] on filedocumented in this encounter Care Teams Consolidation Accountant Relationship Specialty Start Date End Date Jossie Perkins MD PCP - General Internal Medicine 05/13/17 Sonal Sandhu PCP - General Internal Medicine 04/13/19 Rj Arce MD PCP - General 07/14/18 04/12/19 documented as of this encounter
--- OUTSIDE RECORDS SUMMARY | 2024-12-23 11:13 | XMS_ITS | Encounter Summary ---
Author Organization [facility] Address [address] [place] [address] Care Team Providers Care Photo Print Specialist Name Role Phone Sonal Sandhu Primary Care Provider Unavailabl e Encounter Details Date Type Department Care Team Description 10/09/2023 Transfer Records Vascular Surgery - [address] [address] Records, Transfer Social History Tobacco [...] on filedocumented in this encounter Care Teams Photo Print Specialist Relationship Specialty Start Date End Date Sonal Sandhu PCP - General Internal Medicine 04/13/19 documented as of this encounter
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
--- OUTSIDE RECORDS SUMMARY | 2024-12-23 11:13 | XMS_ITS | Encounter Summary ---
Author Organization [facility] Address [address] [place] [address] Care Team Providers Care Export Sales Manager Name Role Phone Jossie Perkins MD Primary Care Provider Un available Sonal Sandhu Primary Care Provider Unavailabl e Rj Arce MD Primary Care Provider Reina antonio Encounter Details Date Type Department Care Team Description 05/26/2017 Maintenance Welder Report Medical Records [address] [place] [address] Linette Palomares, LYNDSEY Social History Tobacco Use Types Packs/Day Years Used Date Smoking Tobacco: Never Sex Assigned at Date Recorded Not on file documented as of this encounter Plan of Treatment Not on file documented as of this encounter Visit Diagnoses Not on filedocumented in this encounter Care Teams Export Sales Manager Relationship Specialty Start Date End Date Jossie Perkins MD PCP - General Internal Medicine 05/13/17 Sonal Sandhu PCP - General Internal Medicine 04/13/19 Rj Arce MD PCP - General 07/14/18 04/12/19 documented as of this encounter
--- OUTSIDE RECORDS SUMMARY | 2024-12-23 11:13 | XMS_ITS | Clinical Summary ---
Author Organization [facility] Address [address] [place] [address] Care Team Providers Care Search Advertising Strategist Name Role Phone Sonal Sandhu Primary Care Provider [phone] Surgical History Surgery Date Site/Laterality Comments COLONOSCOPY 04/01/2017 PROCEDURE: HISTORICAL COLONOSCOPY; COMMENT: Dr archer, small int hemorrhoid only finding HYSTERECTOMY PROCEDURE: HISTORICAL HYSTERECTOMY ESOPHAGOGASTRODUODENOSCOPY 04/01/2017 PROCEDURE: MD ESOPHAGOGASTRODUODENOSCOPY TRANSORAL DIAGNOSTIC; COMMENT: Dr Archer, normal [...] depression 05/21/2017 DX:Major depres alvin; COMMENT: F/u [facility] Vascular dementia ([facility]/HCC) 05/21/2017 DX:V ascular dementia (HCC); COMMENT: [...] age to complete this topic Care Teams Search Advertising Strategist Relationship Specialty Start Date End Date Sonal Sandhu PA [address] [place] [phone] PCP - General Internal Medicine 04/13/19
--- OUTSIDE RECORDS SUMMARY | 2024-12-23 11:13 | XMS_ITS | Encounter Summary ---
Author Organization [facility] Address [address] [place] [address] Care Team Providers Care Air Conditioning Coil Assembler Name Role Phone Sonal Sandhu Primary Care Provider Rj Blair MD Primary Care Provider Reina antonio Encounter Details Date Type Department Care Team Description 02/02/2019 Old Medical Records Medical Records [address] [place] [address] Abstract, Provider Social History Tobacco Use Types Packs/Day Years [...] on filedocumented in this encounter Care Teams Air Conditioning Coil Assembler Relationship Specialty Start Date End Date Sonal Sandhu PCP - General Internal Medicine 04/13/19 Rj Arce MD PCP - General 07/14/18 04/12/19 documented as of this encounter
--- OUTSIDE RECORDS SUMMARY | 2024-12-23 11:13 | XMS_ITS | Encounter Summary ---
Author Organization [facility] Address [address] [place] [address] Care Team Providers Care V Belt Finisher Name Role Phone Jossie Perkins MD Primary Care Provider Un available Sonal Sandhu Primary Care Provider Rj Blair MD Primary Care Provider Reina antonio Encounter Details Date Type Department Care Team Description 07/17/2017 Job Trainer Report Medical Records [address] [place] [address] Anne Gee Social History Tobacco Use Types Packs/Day Years Used Date Smoking Tobacco: Never Sex Assigned at Date Recorded Not on file documented as of this encounter Plan of Treatment Not on file documented as of this encounter Visit Diagnoses Not on filedocumented in this encounter Care Teams V Belt Finisher Relationship Specialty Start Date End Date Jossie Perkins MD PCP - General Internal Medicine 05/13/17 Sonal Sandhu PCP - General Internal Medicine 04/13/19 Rj Arce MD PCP - General 07/14/18 04/12/19 documented as of this encounter
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
--- OUTSIDE RECORDS SUMMARY | 2024-12-23 11:13 | XMS_ITS | Encounter Summary ---
Author Organization [facility] [place] [facility] Address [address] [place] [address] Care Team Providers Care Box Tender Name Role Phone Sonal Sandhu Primary Care Provider Rj Blair MD Primary Care Provider Reina antonio Encounter Details Date Type Department Care Team Description 03/04/2019 Transfer Records Medical Records [address] [place] [address] Abstract, Provider Social History Tobacco Use Types [...] on filedocumented in this encounter Care Teams Box Tender Relationship Specialty Start Date End Date Sonal Sandhu PCP - General Internal Medicine 04/13/19 Rj Arce MD PCP - General 07/14/18 04/12/19 documented as of this encounter
--- OUTSIDE RECORDS SUMMARY | 2024-12-23 11:13 | XMS_ITS | Encounter Summary ---
Author Organization [facility] [place] [facility] Address [address] [place] [address] Care Team Providers Care Cost Report Clerk Name Role Phone Jossie Perkins MD Primary Care Provider Un available Sonal Sandhu Primary Care Provider Rj Blair MD Primary Care Provider Reina antonio Encounter Details Date Type Department Care Team Description 04/02/2017 Hospital Medical Records [address] [place] [address] [address] Social History Tobacco Use Types Packs/Day Years [...] on filedocumented in this encounter Care Teams Cost Report Clerk Relationship Specialty Start Date End Date Jossie Perkins MD PCP - General Internal Medicine 05/13/17 Sonal Sandhu PCP - General Internal Medicine 04/13/19 Rj Arce MD PCP - General 07/14/18 04/12/19 documented as of this encounter
--- OUTSIDE RECORDS SUMMARY | 2024-12-23 11:13 | XMS_ITS | Encounter Summary ---
Author Organization [facility] Address [address] [place] [address] Care Team Providers Care Used Equipment Sales Representative Name Role Phone Sonal Sandhu Primary Care Provider Unavailabl e Encounter Details Date Type Department Care Team Description 04/27/2020 Hospital Medical Records [address] [place] [address] Adolph Frankel MD [address] [place] [address] Social History Tobacco Use Types Packs/Day Years [...] on filedocumented in this encounter Care Teams Used Equipment Sales Representative Relationship Specialty Start Date End Date Sonal Sandhu PCP - General Internal Medicine 04/13/19 documented as of this encounter
--- OUTSIDE RECORDS SUMMARY | 2024-12-23 11:13 | XMS_ITS | Encounter Summary ---
Author Organization [facility] Address [address] [place] [address] Care Team Providers Care Tractor Drill Operator Name Role Phone Jossie Perkins MD Primary Care Provider Un available Sonal Sandhu Primary Care Provider Unavailabl e Rj Arce MD Primary Care Provider Reina antonio Encounter Details Date Type Department Care Team Description 09/17/2017 Air Sampling And Monitoring Report Medical Records [address] [place] [address] Linette Palomares, LYNDSEY Social History Tobacco Use Types Packs/Day Years Used Date Smoking Tobacco: Never Sex Assigned at Date Recorded Not on file documented as of this encounter Plan of Treatment Not on file documented as of this encounter Visit Diagnoses Not on filedocumented in this encounter Care Teams Tractor Drill Operator Relationship Specialty Start Date End Date Jossie Perkins MD PCP - General Internal Medicine 05/13/17 Sonal Sandhu PCP - General Internal Medicine 04/13/19 Rj Arce MD PCP - General 07/14/18 04/12/19 documented as of this encounter
--- OUTSIDE RECORDS SUMMARY | 2024-12-23 11:13 | XMS_ITS | Encounter Summary ---
Author Organization [facility] Address [address] [place] [address] Care Team Providers Care Managing Member Name Role Phone Jossie Perkins MD Primary Care Provider Un available Sonal Sandhu Primary Care Provider Unavailabl e Rj Arce MD Primary Care Provider Reina antonio Encounter Details Date Type Department Care Team Description 10/07/2017 Dye Weigher Helper Report Medical Records [address] [place] [address] Linette Palomares, LYNDSEY Social History Tobacco Use Types Packs/Day Years Used Date Smoking Tobacco: Never Sex Assigned at Date Recorded Not on file documented as of this encounter Plan of Treatment Not on file documented as of this encounter Visit Diagnoses Not on filedocumented in this encounter Care Teams Managing Member Relationship Specialty Start Date End Date Jossie Perkins MD PCP - General Internal Medicine 05/13/17 Sonal Sandhu PCP - General Internal Medicine 04/13/19 Rj Arce MD PCP - General 07/14/18 04/12/19 documented as of this encounter
--- OUTSIDE RECORDS SUMMARY | 2024-12-23 11:14 | XMS_ITS | Clinical Summary ---
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 OTHER ORDERS SCANNED DOCUMENT (10/25/2024 3:00 AM EST) 10/25/2024 3:00 AM EST us Sonal Lukin PA-C SCAN OTHER ORDERS Final Resu lt * MAMMO DIGITAL SCREEN ARABELLA W CAD 3D (04/26/2024 3:00 AM EDT) 04/26/2024 3:00 AM EDT Sonal Sandhu PA-C IMG MAMMO Edited Resul t - Final [facility] Corporate Office [address], [address] [place] [address], * COMPREHENSIVE METABOLIC PANEL (11/26/2023 3:21 PM EST) GLUCOSE 88 65 - 99 mg/dL [facility] Comment: ?Fasting reference interval UREA NITROGEN (BUN) 12 7 - 25 mg/dL [facility] CREATININE (blood) 0.75 0.50 - 1.05 mg/dL [facility] EGFR 89 > OR = 60 mL/min/1. 73m2 [facility] BUN/CREATININE RATIO SEE NOTE: [facility] Comment: ?? Not Reported: BUN and Creatinine are within ?? reference range. ? SODIUM 138 135 - 146 mmol/L [facility] POTASSIUM 4.1 3.5 - 5.3 mmol/L [facility] CHLORIDE 102 98 - 110 mmol/L [facility] CARBON DIOXIDE 31 20 - 32 mmol/L [facility] CALCIUM 9.7 8.6 - 10.4 mg/dL [facility] PROTEIN, TOTAL 7.3 6.1 - 8.1 g/dL [facility] ALBUMIN 4.2 3.6 - 5.1 g/dL [facility] GLOBULIN 3.1 1.9 - 3.7 g/dL (calc) [employer] [facility] ALBUMIN/GLOBULI N RATIO 1.4 1.0 - 2.5 (calc) [employer] [facility] BILIRUBIN, TOTAL 0.5 0.2 - 1.2 mg/dL [employer] [facility] ALKALINE PHOSPHATASE 64 37 - 153 U/L [facility] [facility] AST 18 10 - 35 U/L [employer] [facility] ALT 11 6 - 29 U/L [employer] [facility] Blood Blood / Unknown 11/26/2023 3 :21 PM EST 11/26/2023 3:21 PM EST [facility] - BLOOD DRAW Final Result [employer] [address] [address], [employer] [address] [address] * DXA BONE DENSITY STUDY 1/> SITES AXIAL SKEL (09/23/2023 3:00 AM EST) 09/23/2023 3:00 AM EST Sonal Sandhu PA-C IMG DXA Edited Resul t - Final * (ABNORMAL) LIPID PANEL (11/28/2022 2:59 PM EST) CHOLESTEROL, TOTAL 176 <200 mg/dL [employer] [facility] HDL CHOLESTEROL 53 > OR = 50 mg/dL [employer] [facility] TRIGLYCERIDES 135 <150 mg/dL [employer] [facility] LDL-CHOLESTEROL 100(H) 99 mg/dL (calc) [employer] [facility] Comment: Reference range: <100 Desirable range <100 mg/dL for primary prevention; ?? <70 mg/dL for patients with CHD or diabetic patients with > or = 2 CHD risk factors. LDL-C is now calculated using the Anuj calculation, which is a validated novel method providing better accuracy than the Friedewald equation in the estimation of LDL-C. Tyree JURADO et al. MACARENA. 2013;310(19): 7517-7485 (http://education.[employer]/faq/GKG888) CHOL/HDLC RATIO 3.3 <5.0 (calc) [facility] NON-HDL CHOLESTEROL 123 <130 mg/dL (calc) [facility] Comment: For patients with diabetes plus 1 major ASCVD risk factor, treating to a non-HDL-C goal of <100 mg/dL (LDL-C of <70 mg/dL) is considered a therapeutic option. Blood Blood / Unknown 11/28/2022 2 :59 PM EST 11/28/2022 3:00 PM EST Narrative [facility] - 11/29/2022 1:20 AM EST FASTING:NO us Sonal Sandhu PA-C LAB - BLOOD DRAW Final Resul t [facility] [address] [place] [id number], [facility] [address] [place] [address] (NL2) [place] [address] * (ABNORMAL) HEPATITIS A,B,C PANEL (10/20/2019 10:13 AM EST) HEPATITIS B SURFACE ANTIBODY NEGATIVE NEGATIVE [facility] HEPATITIS B SURFACE ANTIGEN NEGATIVE NEGATIVE [facility] Comment: Over the counter supplements containing high doses of biotin may interfere with this assay. ??If interference is suspected, patients shoud be retested after refraining from biotin supplements for 72 hours. HEPATITIS C VIRUS DIAGNOSTIC NEGATIVE NEGATIVE [facility] HEPATITIS B CORE ANTIBODY NEGATIVE NEGATIVE [facility] HEPATITIS A ANTIBODY TOTAL POSITIVE(A) NEGATIVE [facility] Comment: Over the counter supplements containing high doses of biotin may interfere with this assay. ??If interference is suspected, patients shoud be retested after refraining from biotin supplements for 72 hours. Blood specimen (specimen) Blood / Unknown 10/20/2019 10:13 AM EST 10/20/2019 12:17 PM EST Narrative [email or web address] - 10/20/2019 5:05 PM EST [employer], [place] [address] Ceramist - Yane Schrader MD [place] [id number] ORD# [id number] Sonal Sandhu PA-C LAB - BLOOD DRAW Edited Resu lt - Final Performing Organization Address [facility]/ZIP Co de Phone Number [facility] [address] [address], [place] [phone] * HIV-1 & HIV-2 ANTIBODIES (10/20/2019 10:13 AM EST) HIV 1 AND 2 ANTIBODY SCREEN NEGATIVE NEGATIVE [facility] Comment: This assay is a 4th generation assay allowing for earlier detection of HIV infection by detecting the presence of the HIV-1 p24 antigen as well as the traditional antibodies to HIV type 1 (including group O) and type 2. ??Use of a 4th generation assay is the current CDC recommendation for HIV screening. Blood specimen (specimen) Blood / Unknown 10/20/2019 10:13 AM EST 10/20/2019 12:17 PM EST Narrative [email or web address] - 10/20/2019 5:34 PM EST [employer], a member of [address] [address] [employer]ist - Yane Schrader MD [place] [id number] ORD# [id number] Sonal Sandhu PA-C LAB - BLOOD DRAW Final Resul t Performing Organization Address [facility] Co de Phone Number [address] [address], * COLONOSCOPY (04/01/2017) Impressions Nichole Aguirre - 04/01/2017 EGD Impressions: Normal Esophagus, Normal Stomach, Normal Duodenum Colonoscopy Impressions: Internal Hemorrhoids. Plan: No findings on endoscopy to account for patient symptoms, her pain is most likely functional or musculokestal in origin, the patient has had extensive work including numerous endoscopies and no additional work up is warranted, all tests here and elsewhere have been negative. We need to stop doing tests. Will refer back to PCP. Provider Ochin PROCEDURES Edited Result - Final from Last 3 Months or Most Recently Relevant to Health Maintenance [place] Care Teams Ham Stringer Relationship Specialty Start Date End Date Sonal Sandhu PA-C [address] [place] [phone] PCP - General Internal Medicine 07/27/18
== END 2024-12-23 10:04 | disposition home or self-care (01) ==
LOC: HO.XRAY 10:03
PROVIDERS: PCP Physician Assistant; Visit Provider Hospitalist
DX: K21.9 Gastro-esophageal reflux disease without esophagitis (principal); R10.9 Unspecified abdominal pain
CPT/HCPCS: 74246

== ENCOUNTER → 2024-12-23 10:05 | Outpatient (BNV) | payer MEDICARE, MEDICAID, SELFPAY | PROVIDERS: PCP Physician Assistant; Visit Provider Radiology Diagnostic Radiology | DX: K21.9 Gastro-esophageal reflux disease without esophagitis (principal) | CPT/HCPCS: 74246 ==

== ENCOUNTER 2025-01-26 08:28 | Outpatient (AMB) | payer MEDICARE, MEDICAID, SELFPAY ==
[2025-01-26 08:30] VITALS: BP 112/68; PULSE 84; O2SAT 97; BMI 21.3
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
--- OUTSIDE RECORDS SUMMARY | 2025-01-26 08:39 | XMS_ITS | Clinical Summary ---
Author Organization [facility] Address [address] [place] [address] Care Team Providers Care Back Tacker Name Role Phone Sonal Sandhu PA-C Primary Care Provider [phone] Source Comments PLEASE NOTE, if this patient [...] mouth Active RESTASIS 0.05 % ophthalmic emulsion 11/06/19 22 Active MYRBETRIQ 25 mg Tb24 10/30/19 22 Active blood pressure monitorIndicati ons:Idiopathic hypotension Lifetime need 1 Kit 11/12/19 22 Active famotidine (PEPCID) 40 mg tablet TAKE 1 TABLET BY MOUTH NIGHTLY AT BEDTIME NEEDED FOR HEARTBURN 90 Tablet 1 11/26/19 22 Active betamethasone valerate (VALISONE) 0.1 % ointmentIndicat ions:Poison suresh dermatitis APPLY TO AFFECTED AREA TWICE A DAY 30 g 1 02/11/20 22 Active miscellaneous medical supply miscIndications :Fibromyalgia,F unctional abdominal pain syndrome by miscellaneous route 2 (two) times daily Ensure original, disp 60/month (chocolate and vanilla), dx weight loss, functional abd pain 60 Each 11 06/02/20 22 Active diclofenac sodium (VOLTAREN) 1 % gelIndications: Chronic midline low back pain without sciatica APPLY TO AFFECTED AREA TWICE A DAY 100 g 1 11/11/19 23 Active sucralfate (CARAFATE) 1 gram tabletIndicatio ns:Epigastric pain TAKE 1 TABLET BY MOUTH FOUR TIMES A DAY 60 Tablet 02/23/20 23 Active cyanocobalamin (VITAMIN B-12) 1,000 mcg tabletIndicatio ns:Malaise and fatigue Take 1 Tablet by mouth once daily 90 Tablet 2 03/11/20 23 Active multivitamin tabletIndicatio ns:Malaise and fatigue Take 1 Tablet by mouth once daily 90 Tablet 2 03/11/20 23 Active pantoprazole (PROTONIX) 40 mg EC tabletIndicatio ns:Epigastric pain TAKE 1 TABLET BY MOUTH EVERY DAY 90 Tablet 1 05/15/20 23 Active calcium carbonate (OS-JAMESON) 500 mg calcium (1,250 mg) chewable tabletIndicatio ns:Osteopenia, unspecified location Place 1 Tablet into mouth, chew and swallow once daily Advised to buy TUMS and take 2 daily 180 Tablet 2 06/24/20 23 Active omeprazole (PRILOSEC) [address] capsule Take 40 mg by mouth once daily 12/12/19 24 Active dicyclomine (BENTYL) 20 mg tablet Take 20 mg by mouth 4 (four) times daily 12/12/19 24 Active LINZESS 145 mcg cap 0 Refills, Maintenance, 12/23/23 16:11:00 EST, Partial fill upon patient request if the prescription is for a schedule II opioid drug. 12/09/19 24 Active mirabegron ER (MYRBETRIQ) 25 mg Tb24 Take 25 mg by mouth 11/11/19 24 Active midodrine (PROAMATINE) 2.5 mg tabletIndicatio ns:Idiopathic hypotension TAKE 1 TABLET BY MOUTH TWICE A DAY. AVOID ADMINISTERING LESS THAN 4 HOURS BEFORE BEDTIME TO MINIMIZE RISK OF SUPINE HYPERTENSION. 180 Tablet 1 02/19/20 24 Active fludrocortisone (FLORINEF) 0.1 mg tablet TAKE 1 TABLET BY MOUTH ONCE DAILY 90 Tablet 1 04/27/20 24 Active GEMTESA 75 mg tab 06/29/20 24 Active albuterol HFA (VENTOLIN HFA) 90 mcg/actuation inhalerIndicati ons:Chest tightness Inhale 2 Puffs into the lungs every 4 (four) hours as needed for wheezing or shortness of breath for wheezing 18 Each 1 09/14/20 24 Active nirmatrelvir-ri tonavir (PAXLOVID) 300 mg (150 mg x 2)-100 mg DsPk Use as directed on package 30 Tablet 10/26/19 25 Active acetaminophen (TYLENOL) 500 mg tablet Take 2 Tablets by mouth 2 (two) times daily 360 Tablet 10/26/19 25 Active diclofenac sodium (VOLTAREN) [address] tablet TAKE 1 TABLET BY MOUTH TWICE A DAY 180 Tablet 1 10/30/19 25 Active escitalopram (LEXAPRO) 10 mg tabletIndicatio ns:Anxiety and depression TAKE 1 TABLET BY MOUTH EVERY DAY 90 Tablet 1 11/28/19 25 Active lidocaine (SALONPAS, LIDOCAINE,) 4 % ptmdIndications :Costochondriti s,Right flank pain Apply 1 Patch topically 2 (two) times daily 60 Patch 3 12/14/19 25 Active cholecalciferol (VITAMIN D-3) 50 mcg (2,000 unit) tabletIndicatio ns:Mild vitamin D deficiency Take 1 Tablet by mouth once daily 90 Tablet 2 01/12/20 25 Active codeine-guaifen esin (ROBITUSSIN-AC) 10-100 mg/5 mL syrupIndication s:Pneumonia of right lower lobe due to infectious organism Take 5 mL by mouth 3 (three) times daily as needed for cough or congestion 120 mL 09/28/20 24 025 Discontin ued(Thera py completed /Not needed) cholecalciferol (VITAMIN D-3) 50 mcg (2,000 unit) tabletIndicatio ns:Medication refill Take 1 Tablet by mouth once daily 90 Tablet 2 09/28/20 24 025 Discontin ued(Reord er (E-Cancel Not Sent)) Active Problems Problem Noted Date Diagnosed Date [...] September 14, 2024 18:53 EST Encounter info: [id number], BN, Disch ES, 09/14/2024 - 09/14/2024 Reason For [...] quadrant. IMPRESSION: Right lower lobe pneumonia. WSN: [id number] Ordering Physician: Lux Briggs I Signature Line [...] March 26, 2020 10:23 EDT Encounter info: [id number], [facility], 03/26/2020 - * Final Report * Reason For Exam SPN;SPN RESULT: CT PET [facility] PET/CT Imaging VISIT NUMBER :[id number] Patient Name : Georgiana Costa Date of : 1960 Date of Exam : 03/26/2020 Referring Physician : CARMELA MELGOZA [facility] Thoracic Surgery [address] [place] [address] Drive, [address] [place] [address] Exam : PT - *SKULL BASE TO MID THIGH CPT 36526 - Room Description : *[facility] Pt4 Technique : See technique below [...] Pulmonary nodules--spiculate d, right middle lobe 01/[address] [facility] [address] chest 12/14/2018 Overview (03/19/2020): Result type: CT Angio Chest Result date: March 17, 2020 10:24 EDT Result status: Auth (Verified) Result title: CT Angio Chest Performed by: Ubaldo Tejeda MD on March 17, 2020 10:50 EDT Verified by: Ubaldo Tejeda MD on March 17, 2020 10:50 EDT Encounter info: [id number], [facility], [facility], 03/17/2020 - 03/17/2020 * Final Report * [...] 07/29/2019 and 05/07/2019. Prior granulomatous disease. A [place] message has been communicated via the [employer] system on 03/17/2020 10:48 AM, Message ID [id number]. WSN: [id number] Ordering Physician: Lux Briggs I Signature Line [...] January 18, 2019 19:26 EDT Encounter info: [id number], [facility] [place] [facility], 01/18/2019 - * Final [...] Yellow message has been communicated via the [employer] system on 01/18/2019 7:26 PM, Message ID [id number]. WSN: [id number] Signature Line Dictated By: Lizzette Padgett MD [...] Plan- endoscopy and colonoscopy to be done. [facility] 04/05/17>>Ms. Costa is 57 year old [...] Osteopenia 05/03/2013 Overview (05/17/2018): dexa scan at [facility] on 05/19/14. -osteopenia. Overview: 05/19/2014 DEXA [...] no acute findings. Flank pain ,[place] [facility] [place] and renal and liver and gall [...] 02/15/201506/21 Neck pain on right side 10/03/2014 12/0 03/2015 Polyuria 05/12/2014 07/04/2014 Hematuria, microscopic 12/09/201312/09 Bruises easily 06/29/2013 12/09/2013 Skin rash 06/29/2013 08/23/2013 Memory problem 05/27/2013 08/17/2013 Elbow pain, right 05/27/2013 05/17/2018 Anxiety 05/03/2013 05/17/2018 Shoulder pain 05/03/2013 05/17/2018 Multiple pulmonary nodules 05/03/2013 0 04/14/2016 Overview (03/10/2016): 10/20/09- ct chest- right lung nodules 5mm and 6 mm Over right middle lobe. 10/06/2011- [place] [facility] [place]. 01/18/16- CT scan - 3mm lateral right lung base noncalcified nodule as well as a 3mm right apical granuloma, no new nodules masses or adenopathy. Encounters Date Type Department Care Team Description 01/11/2025 2:00 PM EDT Office Visit [address] [phone] Sonal Sandhu PA-C Routine general medical examination at a health care facility (Primary Dx); Fibromyalgia; Idiopathic hypotension; Mild vitamin D deficiency; Functional abdominal pain syndrome 12/14/2024 8:40 AM EST Office Visit [address] [phone] Tatiana Coker FNP-C Right flank pain (Primary Dx); Costochondritis from Last 3 Months Immunizations Immunization Administration Dates Next Due PFIZER COVID VACCINE, PURPLE CAP, 12+ ,01/31/2021,01/19/2021,2020 Family History Medical History Relation Name Comments [...] Social Connections Answer Date Recorded Connectedness 1 01/11/2025 Financial Resource Strain Answer Date R ecorded Financial Resource Strain 1 2024 Stress Answer Date Recorded Stress 1 01/11/2025 Physical Activity Answer Date Recorded Physical Activity 0 06/06/2019 Food Insecurity Answer Date Recorded Food 1 01/11/2025 Transportation Needs Answer Date Record ed Transportation 1 01/11/2025 Housing Stability Answer Date Recorded Housing 1 01/11/2025 Safety and Environment Answer Date Syed rded Safety 1 04/13/2024 Utilities Answer Date Recorded Utilities 1 01/11/2025 Employment Answer Date Recorded Stress 0 03/11/2023 Comments No Sex and Gender Information Value Date Recorded Sex Assigned at Female 11/17/2017 6:40 AM PST Legal Sex Female 11:36 AM PDT Gender Identity Female 11/17/2017 6:40 AM PST Sexual Orientation Don't know 10/20/2019 7: 16 AM PST Last Filed Vital Signs Vital Sign Reading Time Taken Comments Blood Pressure 102/60 01/11/2025 1:48 PM EDT Pulse 70 01/11/2025 1:48 PM EDT Temperature 36.8 ??C (98.2 ??F) 01/11/2025 1:48 PM ED T Respiratory Rate 16 01/11/2025 1:48 PM EDT Oxygen Saturation 98% 01/11/2025 1:48 PM EDT Inhaled Oxygen Concentration - - Weight 54.9 kg (121 lb) 01/11/2025 1:48 PM EDT Height 152.4 cm (5') 01/11/2025 1:48 PM EDT Body Mass Index 23.63 01/11/2025 1:48 PM EDT Plan of Treatment Health Maintenance Due Date Last Done Comments Anxiety Screening 1960 Imm-DTaP/Tdap/Td (1 - Tdap) 1978 CT Colonography 02/02/2004 Fecal DNA 02/02/2004 Flexible Sigmoidoscopy 02/02/2004 Imm-Pneumococcal 65+ (1 of 1 - PCV) 2009 Imm-Zoster, Recombinant (1 of 2) 2009 FIT/gFOBT 04/01/2018 04/01/2017 (Chloe gebrandon by Outside Provider) Falls Prevention 02/02/2024 Depression Monitoring 04/13/2025 01/11/2025 , 09/28/2024, 04/13/2024, Additional history exists Imm-Influenza (#1) 2025 10/10/2015 Postponed from 06/19/2024 (Patient postponement) Hypertension Screening (#1) 01/11/2026 Medicare Annual Wellness Visit 01/11/2026 01/11/2025, 10/07/2023, 08/20/2022, Additional history exists Tobacco Screening 01/11/2026 01/11/2025 Breast Cancer Screening (Mammogram) 04/26/2026 04/26/2024, 03/20/2022, 09/20/2015 (Managed by Outside Provider), Additional history exists Colonoscopy 04/01/2027 04/01/2017 Colorectal Cancer Screening 04/01/2027 Diabetes Screening 01/13/2028 01/12/2025, 0 11/26/2023, 03/17/2023, Additional history exists Lipid Screening 01/12/2030 01/12/2025, 11/19, 01/22/2022, Additional history exists HIV Screening Completed 10/20/2019 Hepatitis C Screening Completed 10/20/2019 [id number] Discontinued 09/11/2021, 01/17, 01/19/2021, Additional history exists Bone Density Screening Completed 09/23/2023, 2021 Alcohol and Drug Screen Completed 01/12/20, 09/28/2024, 04/13/2024, Additional history exists Procedures Procedure Name Priority Date/Time Associated Diagnosis Comments CORTISOL, A.M. Routine 01/12/2025 8:54 AM EDT Pneumonia of right lower lobe due to infectious organism Medication refill Hypotension, unspecified hypotension type Elevated LFTs LIPID PANEL Routine 01/12/2025 8:54 AM EDT Pneumonia of right lower lobe due to infectious organism Medication refill Hypotension, unspecified hypotension type Elevated LFTs TSH W/RFLX FREE T4 Routine 01/12/2025 8: 54 AM EDT Pneumonia of right lower lobe due to infectious organism Medication refill Hypotension, unspecified hypotension type Elevated LFTs COMPREHENSIVE METABOLIC PANEL Routine 01/12/2025 8:54 AM EDT Pneumonia of right lower lobe due to infectious organism Medication refill Hypotension, unspecified hypotension type Elevated LFTs BLOOD COUNT COMPLETE AUTO&AUTO DIFRNTL WBC Routine 01/12/2025 8:54 AM EDT Pneumonia of right lower lobe due to infectious organism Medication refill Hypotension, unspecified hypotension type Elevated LFTs REFERRAL SCANNED DOCUMENT 01/03/2025 3:00 AM EDT IMAGING SCANNED DOCUMENT 12/23/2024 3:00 AM EST IMAGING SCANNED DOCUMENT 12/23/2024 3:00 AM EST REFERRAL SCANNED DOCUMENT 12/21/2024 3:00 AM EST REFERRAL SCANNED DOCUMENT 12/09/2024 3:00 AM EST REFERRAL SCANNED DOCUMENT 11/28/2024 3:00 AM EST REFERRAL SCANNED DOCUMENT 11/23/2024 3:00 AM EST IMAGING SCANNED DOCUMENT 11/21/2024 3:00 AM EST IMAGING SCANNED DOCUMENT 11/21/2024 3:00 AM EST REFERRAL SCANNED DOCUMENT 11/10/2024 3:00 AM EST MAMMO DIGITAL SCREEN ARABELLA W CAD 3D Routine 04/26/2024 3:00 AM EDT Breast cancer screening by mammogram DXA BONE DENSITY STUDY 1/> SITES AXIAL SKEL Routine 09/23/2023 3:00 AM EST Osteopenia, unspecified location ANTIBODY HIV-1&HIV-2 SINGLE RESULT Routine 10/20/2019 10:13 AM EST Chronic midline low back pain without sciatica Pulmonary nodules--spiculated , right middle lobe 01/[address] [facility] [address] chest Functional constipation Fibromyalgia Chronic abdominal pain HEPATITIS A,B,C PANEL Routine 10/20/2019 10:13 AM EST Chronic midline low back pain without sciatica Pulmonary nodules--spiculated , right middle lobe 01/[address] [facility] [address] chest Functional constipation Fibromyalgia Chronic abdominal pain COLONOSCOPY Routine 04/01/2017 from Last 3 Months or Most Recently Relevant to Health Maintenance Results * TSH W/RFLX FREE T4 (01/12/2025 8:54 AM EDT) TSH W/REFLEX TO FT4 1.86 0.40 - 4.50 mIU/L [facility] Blood Blood / Unknown 01/12/2025 8 :54 AM EDT 01/12/2025 8:56 AM EDT Narrative [facility] - 01/13/2025 10:14 AM EDT FASTING:YES us Sonal Sandhu PA-C LAB - BLOOD DRAW Edited Resu lt - Final Performing Organization Address [facility] Co de Phone Number [facility] [address] [address], [facility] [address] [phone] * CORTISOL, A.M. (01/12/2025 8:54 AM EDT) [facility] CORTISOL, A. M. 13.6 4.0 - 22.0 mcg/dL [facility] Comment: Reference Range 8 a.m. (7-9 a.m.) Specimen: 4.0-22.0 Blood Blood / Unknown 01/12/2025 8 :54 AM EDT 01/12/2025 8:56 AM EDT Narrative [facility] - 01/13/2025 10:14 AM EDT FASTING:YES Sonal Sandhu PA-C LAB - BLOOD DRAW Edited Resu lt - Final Performing Organization Address [facility] de Phone Number [facility] [address] [address], [facility] [address] [phone] * BLOOD COUNT COMPLETE AUTO&AUTO DIFRNTL WBC (01/12/2025 8:54 AM EDT) [facility] WHITE BLOOD CELL COUNT 4.0 3.8 - 10.8 Thousand/ uL [facility] RED BLOOD CELL COUNT 4.27 3.80 - 5.10 Million/u L [facility] HEMOGLOBIN 13.4 11.7 - 15.5 g/dL [facility] HEMATOCRIT 40.8 35.0 - 45.0 % [facility] MCV 95.6 80.0 - 100.0 fL [facility] MCH 31.4 27.0 - 33.0 pg [facility] MCHC 32.8 32.0 - 36.0 g/dL [facility] Comment: For adults, a slight decrease in the calculated MCHC value (in the range of 30 to 32 g/dL) is most likely not clinically significant; however, it should be interpreted with caution in correlation with other red cell parameters and the patient's clinical condition. RDW 12.1 11.0 - 15.0 % [facility] PLATELET COUNT 245 140 - 400 Thousand/ uL [facility] MPV 11.6 7.5 - 12.5 fL [facility] ABSOLUTE NEUTROPHILS 1,676 1,500 - 7,800 cells/uL [facility] ABSOLUTE LYMPHOCYTES 1,784 850 - 3,900 cells/uL [facility] ABSOLUTE MONOCYTES 444 200 - 950 cells/uL [facility] ABSOLUTE EOSINOPHILS 68 15 - 500 cells/uL [facility] ABSOLUTE BASOPHILS 28 0 - 200 cells/uL [facility] NEUTROPHILS PCT 41.9 % [facility] [employer] LYMPHOCYTES 44.6 % [facility] [email or web address] MONOCYTES 11.1 % [facility] [employer] EOSINOPHILS 1.7 % [facility] [employer] BASOPHILS 0.7 % [employer] Blood Blood / Unknown 01/12/2025 8 :54 AM EDT 01/12/2025 8:56 AM EDT Narrative [facility] - 01/13/2025 10:14 AM EDT FASTING:YES us Sonal Sandhu PA-C LAB - BLOOD DRAW Edited Resu lt - Final [facility] [address] [place] [address], [facility] [address] [place] [phone] * (ABNORMAL) LIPID PANEL (01/12/2025 8:54 AM EDT) CHOLESTEROL, TOTAL 203(H) <200 mg/dL [facility] HDL CHOLESTEROL 63 > OR = 50 mg/dL [facility] TRIGLYCERIDES 66 <150 mg/dL [facility] LDL-CHOLESTEROL 124(H) 99 mg/dL (calc) [facility] Comment: Reference range: <100 Desirable range <100 mg/dL for primary prevention; ?? <70 mg/dL for patients with CHD or diabetic patients with > or = 2 CHD risk factors. LDL-C is now calculated using the Anuj calculation, which is a validated novel method providing better accuracy than the Friedewald equation in the estimation of LDL-C. Tyree JURADO et al. MACARENA. 2013;310(19): 2835-5012 (http://education.[employer]o [employer]/faq/JKR164) CHOL/HDLC RATIO 3.2 <5.0 (calc) [facility] NON-HDL CHOLESTEROL 140(H) <130 mg/dL (calc) [facility] Comment: For patients with diabetes plus 1 major ASCVD risk factor, treating to a non-HDL-C goal of <100 mg/dL (LDL-C of <70 mg/dL) is considered a therapeutic option. Blood Blood / Unknown 01/12/2025 8 :54 AM EDT 01/12/2025 8:56 AM EDT Narrative [facility] - 01/13/2025 10:14 AM EDT FASTING:YES us Sonal Sandhu PA-C LAB - BLOOD DRAW Final Resul t [facility] [address] [place] [id number], [facility] [address] [place] [phone] * COMPREHENSIVE METABOLIC PANEL (01/12/2025 8:54 AM EDT) Pathologist [facility] GLUCOSE 84 65 - 99 mg/dL [facility] Comment: ?Fasting reference interval UREA NITROGEN (BUN) 13 7 - 25 mg/dL [facility] CREATININE (blood) 0.65 0.50 - 1.05 mg/dL [facility] EGFR 98 > OR = 60 mL/min/1. 73m2 [facility] BUN/CREATININE RATIO SEE NOTE: [facility] Comment: ?? Not Reported: BUN and Creatinine are within ?? reference range. ? SODIUM 141 135 - 146 mmol/L [facility] POTASSIUM 4.4 3.5 - 5.3 mmol/L [facility] CHLORIDE 105 98 - 110 mmol/L [facility] CARBON DIOXIDE 28 20 - 32 mmol/L [facility] CALCIUM 9.4 8.6 - 10.4 mg/dL [facility] PROTEIN, TOTAL 7.2 6.1 - 8.1 g/dL [facility] ALBUMIN 4.1 3.6 - 5.1 g/dL [facility] GLOBULIN 3.1 1.9 - 3.7 g/dL (calc) [facility] ALBUMIN/GLOBULI N RATIO 1.3 1.0 - 2.5 (calc) [facility] BILIRUBIN, TOTAL 0.4 0.2 - 1.2 mg/dL [facility] ALKALINE PHOSPHATASE 68 37 - 153 U/L [facility] AST 18 10 - 35 U/L [facility] ALT 15 6 - 29 U/L [facility] Blood Blood / Unknown 01/12/2025 8 :54 AM EDT 01/12/2025 8:56 AM EDT Narrative [facility] - 01/13/2025 10:14 AM EDT FASTING:YES Sonal Edson PA-C LAB - BLOOD DRAW Final Resul t [facility] [address] [address], [facility] [address] [phone] * REFERRAL SCANNED DOCUMENT (01/03/2025 3:00 AM EDT) Only the most recent of6 resultswithin the time period is included. 01/03/2025 3:00 AM EDT [employer] PA-C SCAN REFERRAL Final Result * IMAGING SCANNED DOCUMENT (12/23/2024 3:00 AM EST) Only the most recent of4 resultswithin the time period is included. 12/23/2024 3:00 AM EST [employer] Lukin PA-C SCAN IMAGING Final Result * MAMMO DIGITAL SCREEN ARABELLA W CAD 3D (04/26/2024 3:00 AM EDT) 04/26/2024 3:00 AM EDT Sonal Sandhu PA-C IMG MAMMO Edited Resul t - Final [facility] Corporate Office [address], [address] [place] [address], * DXA BONE DENSITY STUDY 1/> SITES AXIAL SKEL (09/23/2023 3:00 AM EST) 09/23/2023 3:00 AM EST Sonal Sandhu PA-C IMG DXA Edited Resul t - Final * (ABNORMAL) HEPATITIS A,B,C PANEL (10/20/2019 10:13 AM EST) HEPATITIS B SURFACE ANTIBODY NEGATIVE NEGATIVE [facility] HEPATITIS B SURFACE ANTIGEN NEGATIVE NEGATIVE [facility] Comment: Over the counter supplements containing high doses of biotin may interfere with this assay. ??If interference is suspected, patients shoud be retested after refraining from biotin supplements for 72 hours. HEPATITIS C VIRUS DIAGNOSTIC NEGATIVE NEGATIVE [facility] HEPATITIS B CORE ANTIBODY NEGATIVE NEGATIVE [facility] HEPATITIS A ANTIBODY TOTAL POSITIVE(A) NEGATIVE [facility] Comment: Over the counter supplements containing high doses of biotin may interfere with this assay. ??If interference is suspected, patients shoud be retested after refraining from biotin supplements for 72 hours. Blood specimen (specimen) Blood / Unknown 10/20/2019 10:13 AM EST 10/20/2019 12:17 PM EST Narrative [facility] - 10/20/2019 5:05 PM EST [employer], a member of [address] [address] [employer] - Y[place] [id number] ORD# [id number] us Sonal Sandhu PA-C LAB - BLOOD DRAW Edited Resu lt - Final [employer] [address], [place] [phone] * HIV-1 & HIV-2 ANTIBODIES (10/20/2019 10:13 AM EST) HIV 1 AND 2 ANTIBODY SCREEN NEGATIVE NEGATIVE [facility] Comment: This assay is a 4th generation [...] AM EST 10/20/2019 12:17 PM EST Narrative [facility] - 10/20/2019 5:34 PM EST [employer], a member of [address] [address] [employer] Paste Maker - Yane [place] [id number] ORD# [id number] Sonal Sandhu PA-C LAB - BLOOD DRAW Final Resul t [facility] [address] [place] [address], * COLONOSCOPY (04/01/2017) Impressions Nichole Aguirre - [...] doing tests. Will refer back to PCP. us Provider [facility] PROCEDURES Edited Result - Final from Last 3 Months or Most Recently Relevant to Health Maintenance Insurance [place] Care Teams Back Tacker Relationship Specialty Start Date End Date Sonal Sandhu PA-C [address] [place] [phone] PCP - General Internal Medicine 07/27/18
--- OUTSIDE RECORDS SUMMARY | 2025-01-26 08:39 | XMS_ITS | Clinical Summary ---
Author Organization [employer] [facility] Address [address] [place] [address] Care Team Providers Care New Media Strategist Name Role Phone Sonal Sandhu Primary Care Provider [phone] Surgical History Surgery Date Site/Laterality Comments COLONOSCOPY 04/01/2017 PROCEDURE: HISTORICAL COLONOSCOPY; COMMENT: Dr archer, small int hemorrhoid only finding HYSTERECTOMY PROCEDURE: HISTORICAL HYSTERECTOMY ESOPHAGOGASTRODUODENOSCOPY 04/01/2017 PROCEDURE: DC ESOPHAGOGASTRODUODENOSCOPY TRANSORAL DIAGNOSTIC; COMMENT: Dr Archer, normal [...] depression 05/21/2017 DX:Major depres alvin; COMMENT: F/u [facility] Vascular dementia ([facility] V 24, [facility] V28) 05/21/2017 DX:Vascular dementia ([facility]); COMMENT: F/u Dr. Gilliland Osteopenia 05/21/2017 DX:Osteopenia; [...] Vaccines (1 of 2) 1979 RSV Immunization Adult Patie nts (1 - Risk 60-74 years 1-dose series) 2019 Colorectal Cancer Screening: Colonoscopy 09/17/2022 Depression Screening 09/17/2022 Hepatitis C Screening 09/17/2022 Osteoporosis Screening (Bone Density Screening) 09/17/2022 Social Influencers of Health Screening 09/17/2022 Falls Risk Assessment 02/02/2024 Influenza Vaccine (Season Ended) 2025 HIB Vaccines Aged Out No longer eligi [...] age to complete this topic Meningococcal B Vaccine Aged Out No l onger eligible based on patient's age to complete this topic RSV Immunization Patients Un angie 20 months Aged Out No longer eligible b ased on patient's age to complete this topic Varicella Vaccines Aged Out No longer eligible based on patient's age to complete this topic Care Teams New Media Strategist Relationship Specialty Start Date End Date Sonal Sandhu PA [facility] [place] [phone] PCP - General Internal Medicine 04/13/19
== END 2025-01-26 08:49 | disposition home or self-care (01) ==
PROVIDERS: PCP Physician Assistant; Visit Provider Hospitalist
DX: J40 Bronchitis, not specified as acute or chronic (principal); R91.8 Other nonspecific abnormal finding of lung field; R07.81 Pleurodynia; J45.41 Moderate persistent asthma with (acute) exacerbation; R05.9 Cough, unspecified; K44.9 Diaphragmatic hernia without obstruction or gangrene; K21.9 Gastro-esophageal reflux disease without esophagitis; B02.29 Other postherpetic nervous system involvement
CPT/HCPCS: 99214

== ENCOUNTER → 2025-01-26 08:28 | Outpatient (BNVA) | payer MEDICARE, MEDICAID, SELFPAY | PROVIDERS: PCP Physician Assistant; Visit Provider Hospitalist | DX: J40 Bronchitis, not specified as acute or chronic (principal); R91.8 Other nonspecific abnormal finding of lung field; R07.81 Pleurodynia; J45.41 Moderate persistent asthma with (acute) exacerbation; K44.9 Diaphragmatic hernia without obstruction or gangrene; K21.9 Gastro-esophageal reflux disease without esophagitis; B02.29 Other postherpetic nervous system involvement | CPT/HCPCS: 99212 ==

== ENCOUNTER 2025-03-09 11:34 | Day surgery (SDC) | payer MEDICARE, MEDICAID, SELFPAY ==
--- OUTSIDE RECORDS SUMMARY | 2025-01-26 10:14 | XMS_ITS | Encounter Summary ---
Author Organization [facility] Address [address] [place] [address] Care Team Providers Care Self Pay Collector Name Role Phone Jossie Perkins MD Primary Care Provider Un available Sonal Sandhu Primary Care Provider Unavailabl e Rj Arce MD Primary Care Provider Reina antonio Encounter Details Date Type Department Care Team Description 08/28/2017 Technical Sme Report Medical Records [address] [place] [address] Linette Palomares, LYNDSEY Social History Tobacco Use Types Packs/Day Years Used Date Smoking Tobacco: Never Sex Assigned at Date Recorded Not on file documented as of this encounter Plan of Treatment Not on file documented as of this encounter Visit Diagnoses Not on filedocumented in this encounter Care Teams Self Pay Collector Relationship Specialty Start Date End Date Jossie Perkins MD PCP - General Internal Medicine 05/13/17 Sonal Sandhu PCP - General Internal Medicine 04/13/19 Rj Arce MD PCP - General 07/14/18 04/12/19 documented as of this encounter
--- OUTSIDE RECORDS SUMMARY | 2025-01-26 10:14 | XMS_ITS | Encounter Summary ---
Author Organization [facility] Address [address] [place] [address] Care Team Providers Care Machine Heddle Cleaner Name Role Phone Jossie Perkins MD Primary Care Provider Un available Sonal Sandhu Primary Care Provider Unavaillocated within [facility] e Rj Arce MD Primary Care Provider Reina antonio Encounter Details Date Type Department Care Team Description 12/18/2017 Housekeeping Department Worker Report Medical Records [address] [place] [id number] Jesus Pichardo, PA-C Social History Tobacco Use Types Packs/Day [...] on filedocumented in this encounter Care Teams Machine Heddle Cleaner Relationship Specialty Start Date End Date Jossie Perkins MD PCP - General Internal Medicine 05/13/17 Sonal Sandhu PCP - General Internal Medicine 04/13/19 Rj Arce MD PCP - General 07/14/18 04/12/19 documented as of this encounter
--- OUTSIDE RECORDS SUMMARY | 2025-01-26 10:14 | XMS_ITS | Encounter Summary ---
Author Organization [facility] Address [address] [place] [address] Care Team Providers Care Clerk Checker Name Role Phone Sonal Sandhu Primary Care Provider Unavailabl e Encounter Details Date Type Department Care Team Description 04/15/2019 Care Navigator Report Medical Records [address] [place] [id number] Yulissa Caldera DO Social History Tobacco Use Types Packs/Day Years [...] on filedocumented in this encounter Care Teams Clerk Checker Relationship Specialty Start Date End Date Sonal Sandhu PCP - General Internal Medicine 04/13/19 documented as of this encounter
--- OUTSIDE RECORDS SUMMARY | 2025-01-26 10:14 | XMS_ITS | Clinical Summary ---
Author Organization [facility] Address [address] [place] [address] Care Team Providers Care Client Services Manager Name Role Phone Sonal Sandhu Primary Care Provider [phone] Surgical History Surgery Date Site/Laterality Comments COLONOSCOPY 04/01/2017 PROCEDURE: HISTORICAL COLONOSCOPY; COMMENT: Dr archer, small int hemorrhoid only finding HYSTERECTOMY PROCEDURE: HISTORICAL HYSTERECTOMY ESOPHAGOGASTRODUODENOSCOPY 04/01/2017 PROCEDURE: MO ESOPHAGOGASTRODUODENOSCOPY TRANSORAL DIAGNOSTIC; COMMENT: Dr Archer, normal [...] depression 05/21/2017 DX:Major depres alvin; COMMENT: F/u [facility] Vascular dementia ([facility] V 24, [facility] V28) 05/21/2017 DX:Vascular dementia ([facility]); COMMENT: F/u Dr. Gilliland Osteopenia 05/21/2017 DX:Osteopenia; [...] age to complete this topic Care Teams Client Services Manager Relationship Specialty Start Date End Date Sonal Sandhu PA [facility] [place] [id number] PCP - General Internal Medicine 04/13/19
--- OUTSIDE RECORDS SUMMARY | 2025-01-26 10:14 | XMS_ITS | Encounter Summary ---
Author Organization [facility] Address [address] [place] [address] Care Team Providers Care Shaper Setter Name Role Phone Jossie Perkins MD Primary Care Provider Un available Sonal Sandhu [facility] Rj Arce MD Primary Care Provider Reina antonio Encounter Details Date Type Department Care Team Description 04/01/2018 Exterminator Termite Report Medical Records [address] [place] [id number] Kem Nicholson Social History Tobacco Use Types [...] on filedocumented in this encounter Care Teams Shaper Setter Relationship Specialty Start Date End Date Jossie Perkins MD PCP - General Internal Medicine 05/13/17 Sonal Sandhu PCP - General Internal Medicine 04/13/19 Rj Arce MD PCP - General 07/14/18 04/12/19 documented as of this encounter
--- OUTSIDE RECORDS SUMMARY | 2025-01-26 10:14 | XMS_ITS | Encounter Summary ---
Author Organization [facility] Address [address] [place] [address] Care Team Providers Care Bioassayist Name Role Phone Jossie Perkins MD Primary Care Provider Un available Sonal Sandhu Primary Care Provider Rj Blair MD Primary Care Provider Reina antonio Reason for Visit * Reason Comments E-prescribe Rx Request Encounter Details Date Type Department Care Team Description 2018 Refill Adult Medicine [address] [address] Jossie Perkins MD E-prescribe Rx Request Social History Tobacco Use Types Packs/Day Years Used Date Smoking Tobacco: Never Smokeless Tobacco: Never Alcohol Use Standard Drinks/Week Comments No 0 (1 standard drink = 0.6 oz pur e alcohol) Sex Assigned at Date Recorded Not on file documented as of this encounter Miscellaneous Notes * Telephone Encounter - Rodrigo Abreu PA-C - 2018 4:24 PM EDT Pt has no previous diagnosis to support prescribing this med at this time. Aixa * Telephone Encounter - Pari Goldsmith - 2018 3:01 PM EDT Patient would like script to be: E-PRESCRIBED/FAXED TO PHARMACY WHEN WAS THE PATIENT'S LAST APPOINTMENT IN ADULT MEDICINE? 10/24/17 WHEN WAS THE LAST TIME THE PATIENT SAW THEIR PCP? 07/31/17 Does patient have an upcoming appointment? No-unable to reach left voicemaill to call for appointment due to refill request. Appt due (THE MEDICATION REQUESTED IS ON THE MED LIST ABOVE) All of the medications requested were on the CURRENT MEDS list Did you check the Pharmacy information above?: YES Patient wants: 30 -day supply Is this a mail order prescription request ? NO Patients current insurance [place] is: [place] / [place] / Product Type: MED[place]ARE [id number] * Telephone Encounter - Raisa Indiaemmie - 2018 3:00 PM EDT Patient would like script to be: E-PRESCRIBED/FAXED TO PHARMACY WHEN WAS THE PATIENT'S LAST APPOINTMENT IN ADULT MEDICINE? 11/01/17 WHEN WAS THE LAST TIME THE PATIENT SAW THEIR PCP? Same as above Does patient have an upcoming appointment? No-unable to reach left voicemaill to call for appointment due to refill request. Appt due April 2018 (THE MEDICATION REQUESTED IS ON THE MED LIST ABOVE) All of the medications requested were on the CURRENT MEDS list Did you check the Pharmacy information above?: YES Patient wants: 30 -day supply Is this a mail order prescription request ? NO Patients current insurance carrier is: [place] / [place] / Product Type: [place]ARE [id number] documented in this encounter Plan of Treatment Not on file documented as of this encounter Visit Diagnoses Not on filedocumented in this encounter Care Teams Bioassayist Relationship Specialty Start Date End Date Jossie Perkins MD PCP - General Internal Medicine 05/13/17 Sonal Sandhu PCP - General Internal Medicine 04/13/19 Rj Arce MD PCP - General 07/14/18 04/12/19 documented as of this encounter
--- OUTSIDE RECORDS SUMMARY | 2025-01-26 10:14 | XMS_ITS | Encounter Summary ---
Author Organization [facility] Address [address] [place] [address] Care Team Providers Care World Travel Counselor Name Role Phone Jossie Perkins MD Primary Care Provider Un available Sonal Sandhu Primary Care Provider Rj Blair MD Primary Care Provider Reina antonio Encounter Details Date Type Department Care Team Description 05/29/2017 Supervisor Knitting Report Medical Records [address] [place] [id number] [place], [place] [address]Med MD Social History Tobacco Use Types Packs/Day Years Used Date Smoking Tobacco: Never Sex Assigned at Date Recorded Not on file documented as of this encounter Plan of Treatment Not on file documented as of this encounter Visit Diagnoses Not on filedocumented in this encounter Care Teams World Travel Counselor Relationship Specialty Start Date End Date Jossie Perkins MD PCP - General Internal Medicine 05/13/17 Sonal Sandhu PCP - General Internal Medicine 04/13/19 Rj Arce MD PCP - General 07/14/18 04/12/19 documented as of this encounter
--- OUTSIDE RECORDS SUMMARY | 2025-01-26 10:14 | XMS_ITS | Encounter Summary ---
Author Organization [facility] Address [address] [place] [address] Care Team Providers Care Waste Paper Hammermill Operator Name Role Phone Sonal Sandhu Primary Care Provider Unavailabl e Encounter Details Date Type Department Care Team Description 10/21/2019 Release of Information Medical Records [address] [place] [id number] Abstract, Provider Social History Tobacco Use Types [...] on filedocumented in this encounter Care Teams Waste Paper Hammermill Operator Relationship Specialty Start Date End Date Sonal Sandhu PCP - General Internal Medicine 04/13/19 documented as of this encounter
--- OUTSIDE RECORDS SUMMARY | 2025-01-26 10:14 | XMS_ITS | Encounter Summary ---
Author Organization [facility] Address [address] [place] [address] Care Team Providers Care Extruder Operator Horizontal Name Role Phone Jossie Perkins MD Primary Care Provider Un available Sonal Sandhu Primary Care Provider Unavailabl e Rj Arce MD Primary Care Provider Reina antonio Encounter Details Date Type Department Care Team Description 10/07/2017 Sports Team Manager Report Medical Records [address] [place] [address] Linette Palomares, LYNDSEY Social History Tobacco Use Types Packs/Day Years Used Date Smoking Tobacco: Never Sex Assigned at Date Recorded Not on file documented as of this encounter Plan of Treatment Not on file documented as of this encounter Visit Diagnoses Not on filedocumented in this encounter Care Teams Extruder Operator Horizontal Relationship Specialty Start Date End Date Jossie Perkins MD PCP - General Internal Medicine 05/13/17 Sonal Sandhu PCP - General Internal Medicine 04/13/19 Rj Arce MD PCP - General 07/14/18 04/12/19 documented as of this encounter
--- OUTSIDE RECORDS SUMMARY | 2025-01-26 10:14 | XMS_ITS | Encounter Summary ---
Author Organization [facility] Address [address] [place] [address] Care Team Providers Care Diamond Cutter Name Role Phone Jossie Perkins MD Primary Care Provider Un available Sonal Sandhu Primary Care Provider Unavailabl e Rj Arce MD Primary Care Provider Reina antonio Encounter Details Date Type Department Care Team Description 08/13/2017 Repair Technician Report Medical Records [address] [place] [address] Linette Palomares NP Social History Tobacco Use Types Packs/Day Years Used Date Smoking Tobacco: Never Sex Assigned at Date Recorded Not on file documented as of this encounter Plan of Treatment Not on file documented as of this encounter Visit Diagnoses Not on filedocumented in this encounter Care Teams Diamond Cutter Relationship Specialty Start Date End Date Jossie Perkins MD PCP - General Internal Medicine 05/13/17 Sonal Sandhu PCP - General Internal Medicine 04/13/19 Rj Arce MD PCP - General 07/14/18 04/12/19 documented as of this encounter
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
--- OUTSIDE RECORDS SUMMARY | 2025-01-26 10:14 | XMS_ITS | Clinical Summary ---
Author Organization [facility] Address [address] [place] [address] Care Team Providers Care Metal Dresser Name Role Phone Sonal Sandhu PA-C Primary Care Provider [phone] Source Comments PLEASE NOTE, if this patient [...] September 14, 2024 18:53 EST Encounter info: [id number], BN, Disch ES, 09/14/2024 - 09/14/2024 Reason [...] quadrant. IMPRESSION: Right lower lobe pneumonia. WSN: [id number] Ordering Physician: Lux Briggs I Signature Line [...] March 26, 2020 10:23 EDT Encounter info: [id number], [facility], 03/26/2020 - * Final Report * Reason For Exam SPN;SPN RESULT: CT PET [facility] PET/CT Imaging VISIT NUMBER :[id number] Patient Name : Georgiana Costa Date of : 1960 Date of Exam : 03/26/2020 Referring Physician : CARMELA MELGOZA [facility] Thoracic Surgery [address] [place] [address] Drive, [address] [place] [address] Exam : PT - *SKULL BASE TO MID THIGH CPT 43876 - Room Description : *[facility] Pt4 Technique : See technique below [...] Pulmonary nodules--spiculate d, right middle lobe 01/2019 [facility] CT chest 12/14/2018 Overview (03/19/2020): Result type: CT Angio Chest Result date: March 17, 2020 10:24 EDT Result status: Auth (Verified) Result title: CT Angio Chest Performed by: Ubaldo Tejeda MD on March 17, 2020 10:50 EDT Verified by: Ubaldo Tejeda MD on March 17, 2020 10:50 EDT Encounter info: [id number], [facility], [facility], 03/17/2020 - 03/17/2020 * Final Report * [...] 07/29/2019 and 05/07/2019. Prior granulomatous disease. A Currie message has been communicated via the [employer]ot[employer]ch system on 03/17/2020 10:48 AM, Message ID [id number]. WSN: [id number] Ordering Physician: Lux Briggs I Signature Line Dictated By: Ubaldo Tejeda MD Dictated Date/Time: 03/17/20 10:50 a Reviewed By: Ubaldo Tejdea MD Signed By: Ubaldo Tejeda MD Signed [...] January 18, 2019 19:26 EDT Encounter info: [id number], [facility] [place] [facility]18[place] - * Final [...] Yellow message has been communicated via the [employer] system on 01/18/2019 7:26 PM, Message ID [id number]. WSN: [id number] Signature Line Dictated By: Lizzette Padgett MD [...] Plan- endoscopy and colonoscopy to be done. [facility] 04/05/17>>Ms. Costa is 57 year old [...] Osteopenia 05/03/2013 Overview (05/17/2018): dexa scan at [facility] on 05/19/14. -osteopenia. Overview: 05/19/2014 DEXA [...] no acute findings. Flank pain ,seen at [facility] [place] -05/05/15 and renal and liver and [...] Over right middle lobe. 10/06/2011- seen by [facility] [place] pulmoanry team. 01/18/16- CT scan - 3mm lateral right lung base noncalcified nodule as well as a 3mm right apical granuloma, no new nodules masses or adenopathy. Encounters Date Type Department Care Team Description 01/11/2025 2:00 PM EDT Office Visit [address] [phone] Sonal Sandhu PA-C Routine general medical examination at a health care facility (Primary Dx); Fibromyalgia; Idiopathic hypotension; Mild vitamin D deficiency; Functional abdominal pain syndrome 12/14/2024 8:40 AM EST Office Visit [address] [phone] Tatiana Coker FNP-C Right flank pain (Primary [...] Completed 10/20/2019 Hepatitis C Screening Completed 10/20/2019 [id number] Discontinued 09/11/2021, 01/17, 01/19/2021, Additional history exists [...] Pulmonary nodules--spiculated , right middle lobe 01/2019 [facility] CT chest Functional constipation Fibromyalgia Chronic abdominal pain HEPATITIS A,B,C PANEL Routine 10/20/2019 10:13 AM EST Chronic midline low back pain without sciatica Pulmonary nodules--spiculated , right middle lobe 01/2019 [facility] CT chest Functional constipation Fibromyalgia Chronic abdominal pain COLONOSCOPY Routine 04/01/2017 from Last 3 Months or Most Recently Relevant to Health Maintenance Results * TSH W/RFLX FREE T4 (01/12/2025 8:54 AM EDT) TSH W/REFLEX TO FT4 1.86 0.40 - 4.50 mIU/L [facility] Blood Blood / Unknown 01/12/2025 8 :54 AM EDT 01/12/2025 8:56 AM EDT Narrative [facility] - 01/13/2025 10:14 AM EDT FASTING:YES us Sonal Sandhu PA-C LAB - BLOOD DRAW Edited Resu lt - Final Performing Organization Address [facility] Co de Phone Number [facility] [address] [address], [facility] [address] [phone] * CORTISOL, A.M. (01/12/2025 8:54 AM EDT) [facility] CORTISOL, A. M. 13.6 4.0 - 22.0 mcg/dL [facility] Comment: Reference Range 8 a.m. (7-9 a.m.) Specimen: 4.0-22.0 Blood Blood / Unknown 01/12/2025 8 :54 AM EDT 01/12/2025 8:56 AM EDT Narrative [employer] [facility] - 01/13/2025 10:14 AM EDT FASTING:YES Sonal Sandhu PA-C LAB - BLOOD DRAW Edited Resu lt - Final Performing Organization Address [facility] de Phone Number [facility] [address] [address], [facility] [address] [address] * BLOOD COUNT COMPLETE AUTO&AUTO DIFRNTL WBC (01/12/2025 8:54 AM EDT) [facility] WHITE BLOOD CELL COUNT 4.0 3.8 - 10.8 Thousand/ uL [facility] RED BLOOD CELL COUNT 4.27 3.80 - 5.10 Million/u L [facility] HEMOGLOBIN 13.4 11.7 - 15.5 g/dL [facility] HEMATOCRIT 40.8 35.0 - 45.0 % [facility] MCV 95.6 80.0 - 100.0 fL [facility] MCH 31.4 27.0 - 33.0 pg [facility] MCHC 32.8 32.0 - 36.0 g/dL [employer] [facility] Comment: For adults, a slight decrease in the calculated MCHC value (in the range of 30 to 32 g/dL) is most likely not clinically significant; however, it should be interpreted with caution in correlation with other red cell parameters and the patient's clinical condition. RDW 12.1 11.0 - 15.0 % [facility] PLATELET COUNT 245 140 - 400 Thousand/ uL [facility] MPV 11.6 7.5 - 12.5 fL [facility] ABSOLUTE NEUTROPHILS 1,676 1,500 - 7,800 cells/uL [facility] ABSOLUTE LYMPHOCYTES 1,784 850 - 3,900 cells/uL [facility] ABSOLUTE MONOCYTES 444 200 - 950 cells/uL [facility] ABSOLUTE EOSINOPHILS 68 15 - 500 cells/uL [facility] ABSOLUTE BASOPHILS 28 0 - 200 cells/uL [facility] NEUTROPHILS PCT 41.9 % [facility] [employer] LYMPHOCYTES 44.6 % [facility] [employer] MONOCYTES 11.1 % [facility] [employer] EOSINOPHILS 1.7 % [facility] [employer] BASOPHILS 0.7 % [employer] Blood Blood / Unknown 01/12/2025 8 :54 AM EDT 01/12/2025 8:56 AM EDT Narrative [facility] - 01/13/2025 10:14 AM EDT FASTING:YES us Sonal Sandhu PA-C LAB - BLOOD DRAW Edited Resu lt - Final [facility] [address] [place] [address], [facility] [address] [place] [phone] * (ABNORMAL) LIPID PANEL (01/12/2025 8:54 AM EDT) CHOLESTEROL, TOTAL 203(H) <200 mg/dL [facility] HDL CHOLESTEROL 63 > OR = 50 mg/dL [facility] TRIGLYCERIDES 66 <150 mg/dL [facility] LDL-CHOLESTEROL 124(H) 99 mg/dL (calc) [facility] Comment: Reference range: <100 Desirable range <100 mg/dL for primary prevention; ?? <70 mg/dL for patients with CHD or diabetic patients with > or = 2 CHD risk factors. LDL-C is now calculated using the Anuj calculation, which is a validated novel method providing better accuracy than the Friedewald equation in the estimation of LDL-C. Tyree JURADO et al. MACARENA. 2013;310(19): 4400-1626 (http://education.SafetyCulture/faq/AOJ583) CHOL/HDLC RATIO 3.2 <5.0 (calc) [facility] NON-HDL CHOLESTEROL 140(H) <130 mg/dL (calc) [facility] Comment: For patients with diabetes plus 1 major ASCVD risk factor, treating to a non-HDL-C goal of <100 mg/dL (LDL-C of <70 mg/dL) is considered a therapeutic option. Blood Blood / Unknown 01/12/2025 8 :54 AM EDT 01/12/2025 8:56 AM EDT Narrative [facility] - 01/13/2025 10:14 AM EDT FASTING:YES us Sonal Sandhu PA-C LAB - BLOOD DRAW Final Resul t [facility] [address] [place] [address], [facility] [address] [place] [phone] * COMPREHENSIVE METABOLIC PANEL (01/12/2025 8:54 AM EDT) Pathologist [facility] GLUCOSE 84 65 - 99 mg/dL [facility] Comment: ?Fasting reference interval UREA NITROGEN (BUN) 13 7 - 25 mg/dL [facility] CREATININE (blood) 0.65 0.50 - 1.05 mg/dL [facility] EGFR 98 > OR = 60 mL/min/1. 73m2 [facility] BUN/CREATININE RATIO SEE NOTE: [facility] Comment: ?? Not Reported: BUN and Creatinine are within ?? reference range. ? SODIUM 141 135 - 146 mmol/L [facility] POTASSIUM 4.4 3.5 - 5.3 mmol/L [facility] CHLORIDE 105 98 - 110 mmol/L [facility] CARBON DIOXIDE 28 20 - 32 mmol/L [facility] CALCIUM 9.4 8.6 - 10.4 mg/dL [facility] PROTEIN, TOTAL 7.2 6.1 - 8.1 g/dL [facility] ALBUMIN 4.1 3.6 - 5.1 g/dL [facility] GLOBULIN 3.1 1.9 - 3.7 g/dL (calc) [facility] ALBUMIN/GLOBULI N RATIO 1.3 1.0 - 2.5 (calc) [facility] BILIRUBIN, TOTAL 0.4 0.2 - 1.2 mg/dL [facility] ALKALINE PHOSPHATASE 68 37 - 153 U/L [facility] AST 18 10 - 35 U/L [facility] ALT 15 6 - 29 U/L [facility] Blood Blood / Unknown 01/12/2025 8 :54 AM EDT 01/12/2025 8:56 AM EDT Narrative [facility] - 01/13/2025 10:14 AM EDT FASTING:YES Sonal Edson PA-C LAB - BLOOD DRAW Final Resul t [facility] [address] [address], [facility] [address] [phone] * REFERRAL SCANNED DOCUMENT (01/03/2025 3:00 AM EDT) Only the most recent of6 resultswithin the time period is included. 01/03/2025 3:00 AM EDT [employer] PA-C SCAN REFERRAL Final Result * IMAGING SCANNED DOCUMENT (12/23/2024 3:00 AM EST) Only the most recent of4 resultswithin the time period is included. 12/23/2024 3:00 AM EST [employer] Lukin PA-C SCAN IMAGING Final Result * MAMMO DIGITAL SCREEN ARABELLA W CAD 3D (04/26/2024 3:00 AM EDT) 04/26/2024 3:00 AM EDT Sonal Sandhu PA-C IMG MAMMO Edited Resul t - Final [facility] Corporate Office [address], [address] [place] [address], * DXA BONE DENSITY STUDY 1/> SITES AXIAL SKEL (09/23/2023 3:00 AM EST) 09/23/2023 3:00 AM EST Sonal Sandhu PA-C IMG DXA Edited Resul t - Final * (ABNORMAL) HEPATITIS A,B,C PANEL (10/20/2019 10:13 AM EST) HEPATITIS B SURFACE ANTIBODY NEGATIVE NEGATIVE [facility] HEPATITIS B SURFACE ANTIGEN NEGATIVE NEGATIVE [facility] Comment: Over the counter supplements containing high doses of biotin may interfere with this assay. ??If interference is suspected, patients shoud be retested after refraining from biotin supplements for 72 hours. HEPATITIS C VIRUS DIAGNOSTIC NEGATIVE NEGATIVE [facility] HEPATITIS B CORE ANTIBODY NEGATIVE NEGATIVE [facility] HEPATITIS A ANTIBODY TOTAL POSITIVE(A) NEGATIVE [facility] Comment: Over the counter supplements containing high doses of biotin may interfere with this assay. ??If interference is suspected, patients shoud be retested after refraining from biotin supplements for 72 hours. Blood specimen (specimen) Blood / Unknown 10/20/2019 10:13 AM EST 10/20/2019 12:17 PM EST Narrative [facility] [place] [facility] - 10/20/2019 5:05 PM EST [employer], a member of [address] [address] Network Control Operator - Yane Schrader [place] [id number] ORD# [id number] us Sonal Sandhu PA-C LAB - BLOOD DRAW Edited Resu lt - Final [employer] [address], [place] [phone] * HIV-1 & HIV-2 ANTIBODIES (10/20/2019 10:13 AM EST) HIV 1 AND 2 ANTIBODY SCREEN NEGATIVE NEGATIVE [facility] Comment: This assay is a 4th generation [...] AM EST 10/20/2019 12:17 PM EST Narrative [facility] - 10/20/2019 5:34 PM EST [employer], a member of [address] [address] Network Control Operator - Yane Schrader MD [place] [id number] ORD# [id number] Sonal Sandhu PA-C LAB - BLOOD DRAW Final Resul t [facility] [address] [place] [address], * COLONOSCOPY (04/01/2017) Impressions Nichole Aguirre - [...] to Health Maintenance Insurance MEDICARE - [place] Care Teams Metal Dresser Relationship Specialty Start Date End Date Sonal Sandhu PA-C [address] [place] [phone] PCP - General Internal Medicine 07/27/18
--- OUTSIDE RECORDS SUMMARY | 2025-01-26 10:14 | XMS_ITS | Encounter Summary ---
Author Organization [facility] Address [address] [place] [address] Care Team Providers Care Merry Go Round Attendant Name Role Phone Jossie Perkins MD Primary Care Provider Un available Sonal Sandhu Primary Care Provider Unavailabl e Rj Arce MD Primary Care Provider Reina antonio Encounter Details Date Type Department Care Team Description 06/10/2014 [employer] Rater Report Medical Records [address] [place] [address] Linette Palomares, LYNDSEY Social History Tobacco Use Types Packs/Day Years Used Date Smoking Tobacco: Never Assessed Sex Assigned at Date Recorded Not on file documented as of this encounter Plan of Treatment Not on file documented as of this encounter Visit Diagnoses Not on filedocumented in this encounter Care Teams Merry Go Round Attendant Relationship Specialty Start Date End Date Jossie Perkins MD PCP - General Internal Medicine 05/13/17 Sonal Sandhu PCP - General Internal Medicine 04/13/19 Rj Arce MD PCP - General 07/14/18 04/12/19 documented as of this encounter
--- OUTSIDE RECORDS SUMMARY | 2025-01-26 10:14 | XMS_ITS | Encounter Summary ---
Author Organization [facility] Address [address] [place] [address] Care Team Providers Care Skein Winder Name Role Phone Jossie Perkins MD Primary Care Provider Un available Sonal Sandhu Primary Care Provider [facility] Rj Arce MD Primary Care Provider Reina antonio Encounter Details Date Type Department Care Team Description 04/04/2017 [facility] Medical Records [address] [place] [address] Social History Tobacco Use Types Packs/Day Years [...] on filedocumented in this encounter Care Teams Skein Winder Relationship Specialty Start Date End Date Jossie Perkins MD PCP - General Internal Medicine 05/13/17 Sonal Sandhu PCP - General Internal Medicine 04/13/19 Rj Arce MD PCP - General 07/14/18 04/12/19 documented as of this encounter
--- OUTSIDE RECORDS SUMMARY | 2025-01-26 10:14 | XMS_ITS | Encounter Summary ---
Author Organization [facility] Address [address] [place] [address] Care Team Providers Care Rn Support Services Name Role Phone Sonal Sandhu Primary Care Provider Rj Blair MD Primary Care Provider Reina antonio Encounter Details Date Type Department Care Team Description 02/02/2019 Old Medical Records Medical Records [address] [place] [address] Abstract, Provider Social History Tobacco Use Types [...] on filedocumented in this encounter Care Teams Rn Support Services Relationship Specialty Start Date End Date Sonal Sandhu PCP - General Internal Medicine 04/13/19 Rj Arce MD PCP - General 07/14/18 04/12/19 documented as of this encounter
--- OUTSIDE RECORDS SUMMARY | 2025-01-26 10:14 | XMS_ITS | Encounter Summary ---
Author Organization [facility] Address [address] [place] [address] Care Team Providers Care Bond Underwriter Name Role Phone Sonal Sandhu Primary Care Provider Rj Blair MD Primary Care Provider Reina antonio Encounter Details Date Type Department Care Team Description 03/04/2019 Transfer Records Medical Records [address] [place] [address] Abstract, Provider Social History Tobacco Use Types [...] on filedocumented in this encounter Care Teams Bond Underwriter Relationship Specialty Start Date End Date Sonal Sandhu PCP - General Internal Medicine 04/13/19 Rj Arce MD PCP - General 07/14/18 04/12/19 documented as of this encounter
--- OUTSIDE RECORDS SUMMARY | 2025-01-26 10:14 | XMS_ITS | Encounter Summary ---
Author Organization [facility] Address [address] [place] [address] Care Team Providers Care Supervisor Engine Repair Name Role Phone Sonal Sandhu Primary Care Provider Rj Blair MD Primary Care Provider Reina antonio Encounter Details Date Type Department Care Team Description 02/03/2019 Blocker Automatic Report Medical Records [address] [place] [address] Patrizia Gray Social History Tobacco Use Types [...] on filedocumented in this encounter Care Teams Supervisor Engine Repair Relationship Specialty Start Date End Date Sonal Sandhu PCP - General Internal Medicine 04/13/19 Rj Arce MD PCP - General 07/14/18 04/12/19 documented as of this encounter
--- OUTSIDE RECORDS SUMMARY | 2025-01-26 10:14 | XMS_ITS | Encounter Summary ---
Author Organization [facility] Address [address] [place] [address] Care Team Providers Care Archeology Professor Name Role Phone Jossie Perkins MD Primary Care Provider Un available Sonal Sandhu Primary Care Provider Rj Blair MD Primary Care Provider Reina antonio Encounter Details Date Type Department Care Team Description 05/25/2017 Release of Information Medical Records [address] [place] [id number] Abstract, Provider Social History Tobacco Use Types Packs/Day Years Used Date Smoking Tobacco: Never Sex Assigned at Date Recorded Not on file documented as of this encounter Plan of Treatment Not on file documented as of this encounter Visit Diagnoses Not on filedocumented in this encounter Care Teams Archeology Professor Relationship Specialty Start Date End Date Jossie Perkins MD PCP - General Internal Medicine 05/13/17 Sonal Sandhu PCP - General Internal Medicine 04/13/19 Rj Arce MD PCP - General 07/14/18 04/12/19 documented as of this encounter
--- OUTSIDE RECORDS SUMMARY | 2025-01-26 10:14 | XMS_ITS | Clinical Summary ---
Author Organization [facility] Address [address] [place] [address] Care Team Providers Care Peanut Separator Name Role Phone Sonal Sandhu Primary Care [...] Mild Vascular dementia 05/21/2017 Overview: F/u Dr. [place] Osteopenia 05/21/2017 Overview: 05/19/2014 DEXA hip and [...] 02/02/2024 PNEUMOCOCCAL VACCINE (1 - PCV) 02/02/2024 BMI CHECK/ADVISE 10/19/2024 INFLUENZA (Season Ended) 2025 COLON CANCER SCREENING 04/01/2027 7, 04/01/2017 (External Completion), 12/23/2013 (External Completion) Care Teams Peanut Separator Relationship Specialty Start Date End Date Sonal Sandhu PCP - General Internal Medicine 04/13/19
--- OUTSIDE RECORDS SUMMARY | 2025-01-26 10:14 | XMS_ITS | Encounter Summary ---
Author Organization [facility] Address [address] [place] [address] Care Team Providers Care Weight Yardage Checker Name Role Phone Sonal Sandhu Primary Care Provider Unavailabl e Encounter Details Date Type Department Care Team Description 04/27/2020 Hospital Medical Records [address] [place] [address] Adolph Frankel MD [address] [place] [address] Social History Tobacco Use Types Packs/Day Years [...] on filedocumented in this encounter Care Teams Weight Yardage Checker Relationship Specialty Start Date End Date Sonal Sandhu PCP - General Internal Medicine 04/13/19 documented as of this encounter
[2025-03-07 13:40] VITALS: BMI 21.3
--- NOTE | 2025-03-08 09:28 | HO.ANESPROP2 ---
HPI - Anesthesia Eval Consult details Narrative: 65yo F for Upper Endoscopy and Colonoscopy [facility] Active Problems Active Problems: All Active Problems Asthma (Acute) Pneumonia (Acute) Bronchitis (Acute) Functional dyspepsia (Acute) Constipation (Acute) Osteoporosis (Acute) Personal history of colonic polyps (Acute) GERD (gastroesophageal reflux disease) (Acute) Abdominal pain (Acute) Osteoarthritis of left shoulder (Acute) Spondylosis of cervical region without myelopathy or radiculopathy (Acute) Chronic pain (Acute) Fibromyalgia (Acute) Hiatal hernia (Acute) Hiatal hernia with GERD (Acute) Post herpetic neuralgia (Acute) Chest pain (Acute) Chronic cough (Acute) Pulmonary nodules (Acute) Past Medical History Medical History Asthma Pneumonia Osteopenia Hiatal hernia with GERD Post herpetic neuralgia Chest pain Chronic cough Pulmonary nodules Family History Family history of problems with anesthesia: No Surgical History Surgical History Hx of colonoscopy History of esophagogastroduodenoscopy (EGD) Social History Social History Patient Tobacco Use Status: Never used Tobacco Meds Allergies Allergy/AdvReac Type Severity Reaction Status Date / Time nitrofurantoin [Macrobid] Allergy Severe Infection Verified 03/20/25 15:56 Home Medications ?Medication ?Instructions ?Recorded ?Confirmed ?Last Taken ?Type albuterol sulfate 90 mcg/actuation 90 mcg inhalation Q4H PRN 09/27/21 03/09/25 Unknown History aerosol inhaler Shortness Of Breath mirabegron 25 mg tablet,extended 25 mg PO DAILY 05/25/23 03/09/25 Unknown History release 24 hr (Myrbetriq) fludrocortisone 0.1 mg tablet 0.05 mg PO DAILY 11/16/23 03/09/25 Unknown History vibegron 75 mg tablet (Gemtesa) 75 mg PO DAILY 08/05/24 03/09/25 Unknown History cyclosporine 0.05 % eye drops in a drp ophthalmic (eye) Q12H 03/20/25 Unknown History dropperette (Restasis) diclofenac sodium 75 mg 75 mg PO BID 03/20/25 Unknown History tablet,delayed release escitalopram oxalate 10 mg tablet 10 mg PO DAILY 03/20/25 Unknown History Exam Height,Weight and Vital Signs: Height 5 ft 3 in Weight 54.431 kg Assessment and Plan Assessment Anesthesia Assessment: Chart Reviewed Final Anesthetic Review Family History of Problems with Anesthesia: No
[2025-03-09 11:40] VITALS: BP 119/81; PULSE 82; RESP 18; TEMP 36.6; O2SAT 96; BMI 20.9
[2025-03-09] MEDS: Lactated Ringers 1,000 ML 100 ML IVCONT (11:58)
--- NOTE | 2025-03-09 12:28 | MHC.SHP ---
Pre-Procedural Eval Section A - 24 Hr Update-Section A only Date of Service: 03/09/25 Section B - Complete if H&P > 30 days Chief Complaint: gerd, HH, abd pain Details of Present Illness: Asthma Pneumonia Osteopenia Hiatal hernia with GERD Post herpetic neuralgia Chest pain Chronic cough Pulmonary nodules Surgical History Hx of colonoscopy History of esophagogastroduodenoscopy (EGD) Allergies: Allergies Allergy/AdvReac Type Severity Reaction Status Date / Time nitrofurantoin [Macrobid] Allergy Severe Infection Verified 01/26/25 08:33 Review of Systems Review of Systems Comment: Ten point ROS negative Exam Exam Comment: Gen appear: No acute distress HEENT: no icterus Chest: No overt resp distress Abd: soft, nontender, nondistended Psych: Stable affect, answering questions appropriately Neuro: A/Ox3 noted to move all extremities spontaneously Ext: no peripheral edema Plan Diagnosis/Plan: Unchanged I have reviewed the history and physical and performed a pertinent physical examination on my patient. No changes have occurred unless specified. Time Spent With Patient Time: Total time managing care of this patient today ____ minutes.
--- NOTE | 2025-03-09 13:01 | P.CONAN_ITS ---
HPI - Anesthesia Eval Consult details Narrative: [facility] Active Problems Active Problems: All Active Problems Asthma (Acute) Pneumonia (Acute) Bronchitis (Acute) Functional dyspepsia (Acute) Constipation (Acute) Osteoporosis (Acute) Personal history of colonic polyps (Acute) GERD (gastroesophageal reflux disease) (Acute) Abdominal pain (Acute) Osteoarthritis of left shoulder (Acute) Spondylosis of cervical region without myelopathy or radiculopathy (Acute) Chronic pain (Acute) Fibromyalgia (Acute) Hiatal hernia (Acute) Hiatal hernia with GERD (Acute) Post herpetic neuralgia (Acute) Chest pain (Acute) Chronic cough (Acute) Pulmonary nodules (Acute) Past Medical History Medical History Asthma Pneumonia Osteopenia Hiatal hernia with GERD Post herpetic neuralgia Chest pain Chronic cough Pulmonary nodules Family History Family history of problems with anesthesia: No Surgical History Surgical History Hx of colonoscopy History of esophagogastroduodenoscopy (EGD) History of Problems with Anesthesia: No Social History Social History Patient Tobacco Use Status: Never used Tobacco Have you been hit, kicked, punched, or otherwise hurt by someone within the past year? If so, by whom?: No Are you DNR?: No Advance Directives: No Advance Directives Information Provided: Yes Meds Allergies Allergy/AdvReac Type Severity Reaction Status Date / Time nitrofurantoin [Macrobid] Allergy Severe Infection Verified 01/26/25 08:33 Active Medications: Current Medications Albuterol Sulfate (Albuterol Sulfate (0.083%) 2.5 Mg/3 Ml Vial.Neb) 2.5 mg INHALE ONCE PRN PRN Reason: Shortness of Breath/Wheezing Lactated Ringer's (Lr) 1,000 mls @ 100 mls/hr IVCONT .Q10H AARON Last Admin: 03/09/25 11:58 Dose: 100 mls/hr Home Medications ?Medication ?Instructions ?Recorded ?Confirmed ?Last Taken ?Type albuterol sulfate 90 mcg/actuation 90 mcg inhalation Q4H PRN 09/27/21 03/09/25 Unknown History aerosol inhaler Shortness Of Breath mirabegron 25 mg tablet,extended 25 mg PO DAILY 05/25/23 03/09/25 Unknown History release 24 hr (Myrbetriq) fludrocortisone 0.1 mg tablet 0.05 mg PO DAILY 11/16/23 03/09/25 Unknown History vibegron 75 mg tablet (Gemtesa) 75 mg PO DAILY 08/05/24 03/09/25 Unknown History Exam Height,Weight and Vital Signs: Height 5 ft 3 in Weight 118 lb 2.684 oz Last Vital Signs Temp 98 F 03/09/25 11:40 Pulse 82 03/09/25 11:40 Resp 18 03/09/25 11:40 BP 119/81 03/09/25 11:40 Pulse Ox 96 03/09/25 11:40 O2 Del Method Room Air 03/09/25 11:40 Airway Mallampati Class: I TM Dist: >3cm Neck ROM: Full Loose/Missing/Broken Teeth: No (RRR) Heart: CTA B/L Assessment and Plan Assessment Anesthesia Assessment: Anesthesia Plan Discussed Final Anesthetic Review Family History of Problems with Anesthesia: No History of Problems with Anesthesia: No ASA Class: I Final Preanesthetic Review: No Changes in Pt Med Stat, Meds/Allgs Chart Reviewed, Consent Obtained/Reviewed and Anes Risks/Benef Reviewed Patient Risk: Low Procedure Risk: Low Anesthetic Plan Anesthetic Plan: GA and TIVA Disposition: Standard PACU
--- NOTE | 2025-03-09 13:48 | P.OPN-COLO_ITS ---
Colonoscopy Operative Note Operative Note Date of Service: 03/09/25 Narrative: Procedure: Upper endoscopy and colonoscopy Indication: Dysphagia, HH, abd pain Endoscopist: Shalonda Quiros MD Anesthesia Provider: Kenan Harrison and Nisha Osei Anesthesia type: MAC Instrument: [id number]-[id number] and [id number]-[id number] EGD Procedure:?? The procedure, indications, preparation and potential complications were reviewed with the patient, who indicated understanding and gave written informed consent to proceed. The endoscope was introduced through the mouth, and advanced to the 2nd part of the duodenum. The mucosa was carefully examined on slow withdrawal of the endoscope. The patient tolerated the procedure well. There were no immediate complications.? EGD Findings:? * Esophagus:? Normal esophageal mucosa was noted. The Z-line was at 38 cm and irregular up to 36 cm. Cold forceps biopsies were taken from GE junction to r ule out arcos's esophagus. The tissue Cypher will also be sent if metaplasia confirmed. * Stomach:? Normal gastric mucosa. A few polyps noted in the body of the stomach. Retroflexion was performed in the cardia that showed Hill grade II hiatal hernia. Cold forceps biopsies were taken from the stomach antrum and body. * Duodenum:? Normal duodenal mucosa. Additional intervention: Soft tip Savary wire was introduced through the biopsy channel of the gastroscope and advanced to the antrum. ?The gastroscope was then backed out. ?Savary Deon bougie was advanced over the guidewire and the esophagus was dilated to 17 without any resistance felt. ?On relook, no heme or tear was noted. ? Colonoscopy Procedure:? The patient was then turned for the colonoscopy. A digital rectal exam was performed which was abnormal for external hemorrhoids.? A distal attachment cap was affixed to the tip of the scope and the colonoscope was then inserted through the anus and advanced through the colon and advanced to the cecum at 65 cm and terminal ileum.? Appendiceal orifice and ileocecal valve were identified. Mucosa was carefully examined under high definition white light as the instrument was slowly withdrawn in a retrograde panoramic fashion. Retroflexion was performed in rectum. The procedure was not difficult. The quality of the prep was BBPS: 3+2+3 = adequate Withdrawal time 12 minutes Limitations: No limitations Findings: Mucosa: Normal colon and terminal ileum mucosa. Protruding lesions: * 1 sessile polyp of size 3 mm in transverse colon. Cold snare polypectomy was performed. The polyp was completely removed and retrieved. * One sessile polyp of size 4 mm in rectum. Cold snare polypectomy was performed. The polyp was completely removed and retrieved. * Medium internal hemorrhoids without stigmata of recent bleeding. Impression: 1. Irregular Z line (biopsy, tissue cypher) 2. Hiatal hernia 3. Normal stomach (biopsy) 3. Normal duodenum 5. Normal colon and terminal ileum mucosa 6. 2 polyps removed 7. Internal and external hemorrhoids Recommendations:?? * Follow-up path results * No stricture or narrowing noted in esophagus to correlate with pt's complaint of dysphagia. Recommend barium swallow. * Repeat colonoscopy in 7 years if polyps are adenomas.
[2025-03-09 13:52] VITALS: BP 112/57; PULSE 86; RESP 16; TEMP 36.2; O2SAT 99
[2025-03-09 14:07] VITALS: BP 124/67; PULSE 82; RESP 16; TEMP 36.2; O2SAT 99
== END 2025-03-09 14:47 | disposition home or self-care (01) ==
PROVIDERS: PCP Physician Assistant; Visit Provider Internal Medicine
PROC: (CPT 45385; principal; 2025-03-09 13:20)
DX: R10.9 Unspecified abdominal pain (principal); Z86.0101 Personal history of adenomatous and serrated colon polyps; D12.3 Benign neoplasm of transverse colon; K62.1 Rectal polyp; K64.8 Other hemorrhoids; K64.4 Residual hemorrhoidal skin tags; K59.00 Constipation, unspecified; R13.10 Dysphagia, unspecified; K21.9 Gastro-esophageal reflux disease without esophagitis; K30 Functional dyspepsia; K22.9 Disease of esophagus, unspecified; K31.7 Polyp of stomach and duodenum; K44.9 Diaphragmatic hernia without obstruction or gangrene; B02.29 Other postherpetic nervous system involvement; G89.29 Other chronic pain; M79.7 Fibromyalgia; M85.80 Other specified disorders of bone density and structure, unspecified site; R91.8 Other nonspecific abnormal finding of lung field; R07.81 Pleurodynia; J40 Bronchitis, not specified as acute or chronic; R05.3 Chronic cough; J45.40 Moderate persistent asthma, uncomplicated; Z88.3 Allergy status to other anti-infective agents
CPT/HCPCS: 45385; 43248; 43239; 88305; 88313; 88342; C1769; J2003; J2704

== ENCOUNTER → 2025-03-09 11:34 | Outpatient (BNV) | payer MEDICARE, MEDICAID, SELFPAY | PROVIDERS: PCP Physician Assistant; Visit Provider Internal Medicine | DX: K22.89 Other specified disease of esophagus (principal); K44.9 Diaphragmatic hernia without obstruction or gangrene; K63.5 Polyp of colon; K64.8 Other hemorrhoids | CPT/HCPCS: 43239; 43245; 45385 ==

== ENCOUNTER 2025-03-20 15:52 | Outpatient (AMB) | payer MEDICARE, MEDICAID, SELFPAY ==
--- NOTE | 2025-03-20 15:55 | A.OFFVIS_ITS ---
Vital Signs 03/20/25 16:05 Height 5 ft 3 in Weight 119 lb 10 oz BMI 21.2 BP 116/76 Blood Pressure Location Rt brachial Position Sitting Pulse 76 Pulse Source Pulse Oximeter Pulse Oximetry (%) 96 Oxygen Delivery Method Room Air Intake Visit Reasons: s/p double Intake Note: Established patient for s/p duo FUV. CC; C.O. RUQ pain persistence since prior to procedure. Pt denies any new sx or concerns at this time. 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 07/31/23: Previous GI used to be at [facility] who recently left so she is looking to switch providers. Was last seen there a year ago. Has had an EGD and colo 3-4 years ago. Reports having polyps removed from the colon. Pt reports that she has been having abd discomfort in epigastrium that radiates to her R side. Started almost 3 months ago. Assoc with nausea and loss of appetite but no unintentional weight loss. Pain is often postprandial, not assoc with bowel habit changes. Did take PPI for this which did not help much. Does not take any NSAIDs. No recent travel. She also mentions that she was told about absorption issues after she had a dexa scan that showed weak bones. 11/16/23: Was lost to follow up when office tried multiple times to contact her for EGD. Now returning for follow up for essentially unchanged upper GI complaints. Reports frequent postprandial abd discomfort with nausea. Also reports losing 50 lbs in a year however NOT corroborated by weights in chart, remains stable. Labs were reviewed with the pt and are all normal. Pt also had a dexa scan at [facility] last month that confirms osteoporosis. 12/22/23: * Irregular Z line (biopsy) * Hiatal hernia * Gastric polyps * Normal gastric mucosa (biopsy) * Normal duodenum (biopsy) Path: A. Duodenum, biopsy: Duodenal mucosa within normal limits; preserved villous architecture and no increase in intraepithelial lymphocytes seen. B. Stomach, biopsy: Gastric antral mucosa with mild chronic inactive gastritis; gastric body mucosa within normal limits; negative for Helicobacter pylori, intestinal metaplasia and dysplasia. C. Gastroesophageal junction, biopsy: Squamous and columnar junctional mucosa with mild chronic active inflammation; negative for intestinal metaplasia and dysplasia. 01/06/24: Here for post EGD follow up. Results of the EGD and path reviewed which are overall reassuring. Reports no change in sx. Still complains of chest pain and pressure with bloating. Has been taking omeprazole. Stopped her nortriptyline a few months ago - she is unsure if she ran out or was asked to stop it to avoid a drug interaction. In fact tells me she stopped all her meds a few weeks ago. From chart review - has hx of anxiety and adjustment disorder. Used to see [facility] but could not form a rapport with the new therapist so stopped going 2 years ago. Also noted to have osteoporosis on dxa 09/2023 but has not been seen by endocrine. 02/22/24: Here for follow up with her partner. Reports an array of abd complaints as well as headache and numbness in her face. Has still not resumed any of the meds, in fact tells me her PCP and thermite welder advised her to cont to stay off all meds for now. Only taking omeprazole epr her report. In terms of her persistent complaint of abd discomfort with bloating and poor a ppetite a CT abd/pel was ordered. This is miles for 02/24. 03/25/24: Here for follow up. CT 02/24: No acute abnormality in the abdomen or pelvis. Constipation. Reports improvement in epigastric discomfort and RUQ pain since starting notriptyline. OCc has break through pain may be once a week. Does not recall the nortriptyline dose that shes taking. 07/04/24: 3 month follow up. Continues with constellation of complaints including abd pain, N,V constipation. Also remains worried about weight loss although weight curve stable per ClasesD. Reports stopped taking nortriptyline as was also started on escitalopram. She is unsure who initiated this medication. Pharmacist advised her to take either of the two so shes only taking escitalopram as it seemed to be helping her anxiety. Pt today mentions that she in fact did get a letter from [facility] for colo follow up, so is actually due this year and not 2024. 11/23/24: Here for follow up. Canceled her colonoscopy appt last month as pt was under the impression she had one recently. ALso had covid. Pt reports she was able to call [facility] and find out her colonoscopy was in March 2017. She is now amenable to miles this. ALso getting pulm work up done for chronic RML mucus plugging. Bronchoscopy pending. 12/09/24: Here as urgent visit for R flank pain and burning which shifts to L side if she lays on that side. Ongoing x 1 week. Being managed as possible post herpetic neuralgia by her principal gifts officer. No other GI complaints with this to include changes in appetite, N/V. Pt had brought up occ dysphagia to principal gifts officer, but does not report any significant burdent of sx to me today. In fact inquires if needs to do barium swallow as already has had almost 10 XRay/CTs in the past year. 03/09/25: EGD/colo 1. Irregular Z line (biopsy, tissue cypher) 2. Hiatal hernia 3. Normal stomach (biopsy) 3. Normal duodenum 5. Normal colon and terminal ileum mucosa 6. 2 polyps removed 7. Internal and external hemorrhoids Path: A. Stomach, antrum, biopsy: Gastric antral mucosa with mild chronic inactive gastritis; negative for Helicobacter pylori, intestinal metaplasia and dysplasia. B. Stomach, body, biopsy: Gastric body mucosa within normal limits; negative for Helicobacter pylori, intestinal metaplasia and dysplasia. C. Gastroesophageal junction, biopsy: Squamocolumnar junctional mucosa with mild chronic inflammation; negative for intestinal metaplasia and dysplasia. D. Stomach, polyp, biopsy: Polypoid gastric body mucosa with mild PPI effect; negative for Helicobacter pylori, intestinal metaplasia and dysplasia. E. Rectum, polypectomy: Hyperplastic polyp. F. Colon, transverse, polypectomy: Tubular adenoma; negative for high-grade dysplasia. 03/20/25: Pt here for post procedure follow up. Accompanied by her . Cont to have intermittent R sided abd pain with nausea. This does not get better with PPI. Reviewed that no gastritis and/or duodenitis noted on EGD so not surprised pain doesnt get better with PPI. Likely 2/2 functional dyspepsia and would recommend TCA trial - pt recalls was put on this almost 3-5 years ago as well but then stopped taking it. Currently NOT taking any meds including escitalopram. Pt also reports diffuse body aches and joint pains. Has known osteoporosis but not on Vit D supplementation or anti resporptive therapy. Last dexa was over 5 years ago per her report. [facility] Medical History Asthma Pneumonia Osteopenia Hiatal hernia with GERD Post herpetic neuralgia Chest pain Chronic cough Pulmonary nodules Surgical History Hx of colonoscopy History of esophagogastroduodenoscopy (EGD) Social History Patient Tobacco Use Status: Never used Tobacco Review of Systems Const All systems reviewed & are unremarkable except as noted in HPI and below Physical Exam Vital Signs: Last Vital Signs Pulse 76 03/20/25 16:05 BP 116/76 03/20/25 16:05 Pulse Ox 96 03/20/25 16:05 Oxygen Delivery Method Room Air 03/20/25 16:05 BMI result Body Mass Index 21.2 No apparent distress Nonicteric Abdomen soft, nondistended Alert and oriented x3, normal gait Assessment & Plan Assessment & Plan (1) Functional dyspepsia: Code(s): K30 - Functional dyspepsia Category: Medical (2) Osteoporosis: Code(s): M81.0 - Age-related osteoporosis without current pathological fracture Category: Medical (3) Personal history of colonic polyps: Code(s): Z86.010 - Personal history of colon polyps Category: Medical Plan 1. functional dyspepsia Again reviewed trial of TCA. PT agreeable to nortriptyline. COnfirmed not taking any other meds including escitalopram. Plan: - nortriptyline 10 once daily x 2 weeks and then increase to 20 mg once daily - follow up 3 months to review response 2. Suspect generalized body pains and bone aches could be 2/2 osteoporosis. Pt on mcfp PPI. Plan: - Reminded to take vit D/jory supplement - DEXA scan - May need endocrine referral depending on results 3. Personal hx of polyps Had 1 T.A on colo done last month. Repeat colo recommended in 7-10 years. Follow up 3 months Orders: Orders XR DEXA axial skeleton Today M81.0 - Age-related osteoporosis without current pathological fracture Medications: New nortriptyline take 1 capsule for 2 weeks, and then increase to 2 capsules 10 mg PO BEDTIME 90 days 120 caps 0RF Coding Level of Care Code Est Pt Level 4 (34570) Diagnoses Functional dyspepsia K30 Osteoporosis M81.0 Personal history of colonic polyps Z86.010
[2025-03-20 16:05] VITALS: BP 116/76; PULSE 76; O2SAT 96; BMI 21.2
== END 2025-03-20 16:27 | disposition home or self-care (01) ==
LOC: HO.HGI 15:53
PROVIDERS: PCP Physician Assistant; Visit Provider Internal Medicine
DX: K30 Functional dyspepsia (principal); M81.0 Age-related osteoporosis without current pathological fracture; Z86.0100 Personal history of colon polyps, unspecified
CPT/HCPCS: 99214

== ENCOUNTER → 2025-03-20 15:52 | Outpatient (BNVA) | payer MEDICARE, MEDICAID, SELFPAY | PROVIDERS: PCP Physician Assistant; Visit Provider Internal Medicine | DX: K30 Functional dyspepsia (principal); M81.0 Age-related osteoporosis without current pathological fracture; Z86.0100 Personal history of colon polyps, unspecified | CPT/HCPCS: 99212 ==

== ENCOUNTER 2025-04-20 13:22 | Outpatient (REF) | payer MEDICARE, MEDICAID, SELFPAY ==
--- NOTE | ~2025-04-20 | MM_ITS ---
EXAMINATION: DXA BONE DENSITY AXIAL HISTORY: M81.0 - Age-related osteoporosis without current pathological fracture TECHNIQUE: rankdesk Dual energy absorptiometry (DEXA) of the lumbar spine, total left hip, and femoral neck was performed. COMPARISON: There are no prior studies for comparison. FINDINGS: The bone mineral density of the lumbar spine is 0.949 g/cm2, corresponding to a T-score of -1.9, and a Z-score of 0.1. This is indicative of osteopenia. The bone mineral density of the left total hip is 0.736 g/cm2, corresponding to a T-score of -2.2, and a Z-score of -0.6. This is indicative of osteopenia. The bone mineral density of the left femoral neck is 0.689 g/cm2, corresponding to a T-score of -2.5, and a Z-score of -0.7. This is indicative of osteoporosis. FRACTURE RISK: The FRAX index suggests a risk of major osteoporotic fracture of 15.1%, and of hip fracture 4.3%. MM/XR DEXA axial skeleton IMPRESSION: Based on bone mineral density, and according to World Health Organization (WHO) criteria, the diagnosis is consistent with osteoporosis. Statistically, 68% of repeat scans fall within 1 SD (+/- 0.010 g/cm2 for AP spine L1-L4) and 1 SD (+/- 0.012 g/cm2 for femur total) FRAX is a trademark of the [employer]'s [place] [facility] Metabolic Bone Disease, a World Health Organization (WHO) Collaborating Center. Electronically signed by: Govind Nichols MD 04/20/2025 01:57 PM EDT
--- OUTSIDE RECORDS SUMMARY | 2025-04-20 13:31 | XMS_ITS | Clinical Summary ---
Author Organization [facility] Address [address] [place] [address] Care Team Providers Care Cook Syrup Maker Name Role Phone Sonal Sandhu PA-C Primary Care Provider Source Comments PLEASE NOTE, if this patient [...] mouth Active RESTASIS 0.05 % ophthalmic emulsion 2 Active MYRBETRIQ 25 mg Tb24 2 Active blood pressure monitorIndicati ons:Idiopathic hypotension Lifetime need 1 Kit 2 Active famotidine (PEPCID) 40 mg tablet TAKE 1 TABLET BY MOUTH NIGHTLY AT BEDTIME NEEDED FOR HEARTBURN 90 Tablet 1 2 Active betamethasone valerate (VALISONE) 0.1 % ointmentIndicat ions:Poison suresh dermatitis APPLY TO AFFECTED AREA TWICE A DAY 30 g 1 2 Active miscellaneous medical supply miscIndications :Fibromyalgia,F unctional abdominal pain syndrome by miscellaneous route 2 (two) times daily Ensure original, disp 60/month (chocolate and vanilla), dx weight loss, functional abd pain 60 Each 11 2 Active diclofenac sodium (VOLTAREN) 1 % gelIndications: Chronic midline low back pain without sciatica APPLY TO AFFECTED AREA TWICE A DAY 100 g 1 3 Active sucralfate (CARAFATE) 1 gram tabletIndicatio ns:Epigastric pain TAKE 1 TABLET BY MOUTH FOUR TIMES A DAY 60 Tablet 3 Active cyanocobalamin (VITAMIN B-12) 1,000 mcg tabletIndicatio ns:Malaise and fatigue Take 1 Tablet by mouth once daily 90 Tablet 2 3 Active multivitamin tabletIndicatio ns:Malaise and fatigue Take 1 Tablet by mouth once daily 90 Tablet 2 3 Active pantoprazole (PROTONIX) 40 mg EC tabletIndicatio ns:Epigastric pain TAKE 1 TABLET BY MOUTH EVERY DAY 90 Tablet 1 3 Active calcium carbonate (OS-JAMESON) 500 mg calcium (1,250 mg) chewable tabletIndicatio ns:Osteopenia, unspecified location Place 1 Tablet into mouth, chew and swallow once daily Advised to buy TUMS and take 2 daily 180 Tablet 2 3 Active omeprazole (PRILOSEC) [address] capsule Take 40 mg by mouth once daily 4 Active dicyclomine (BENTYL) 20 mg tablet Take 20 mg by mouth 4 (four) times daily 4 Active LINZESS 145 mcg cap 0 Refills, Maintenance, 12/23/23 16:11:00 EST, Partial fill upon patient request if the prescription is for a schedule II opioid drug. 4 Active mirabegron ER (MYRBETRIQ) 25 mg Tb24 Take 25 mg by mouth 4 Active midodrine (PROAMATINE) 2.5 mg tabletIndicatio ns:Idiopathic hypotension TAKE 1 TABLET BY MOUTH TWICE A DAY. AVOID ADMINISTERING LESS THAN 4 HOURS BEFORE BEDTIME TO MINIMIZE RISK OF SUPINE HYPERTENSION. 180 Tablet 1 4 Active fludrocortisone (FLORINEF) 0.1 mg tablet TAKE 1 TABLET BY MOUTH ONCE DAILY 90 Tablet 1 4 Active GEMTESA 75 mg tab 4 Active albuterol HFA (VENTOLIN HFA) 90 mcg/actuation inhalerIndicati ons:Chest tightness Inhale 2 Puffs into the lungs every 4 (four) hours as needed for wheezing or shortness of breath for wheezing 18 Each 1 4 Active nirmatrelvir-ri tonavir (PAXLOVID) 300 mg (150 mg x 2)-100 mg DsPk Use as directed on package 30 Tablet 5 Active acetaminophen (TYLENOL) 500 mg tablet Take 2 Tablets by mouth 2 (two) times daily 360 Tablet 5 Active lidocaine (SALONPAS, LIDOCAINE,) 4 % ptmdIndications :Costochondriti s,Right flank pain Apply 1 Patch topically 2 (two) times daily 60 Patch 3 5 Active cholecalciferol (VITAMIN D-3) 50 mcg (2,000 unit) tabletIndicatio ns:Mild vitamin D deficiency Take 1 Tablet by mouth once daily 90 Tablet 2 5 Active diclofenac sodium (VOLTAREN) [address] tablet TAKE 1 TABLET BY MOUTH TWICE A DAY 180 Tablet 1 5 Active escitalopram (LEXAPRO) 10 mg tabletIndicatio ns:Anxiety and depression TAKE 1 TABLET BY MOUTH EVERY DAY 90 Tablet 1 5 Active Active Problems Problem Noted Date Diagnosed Date [...] September 14, 2024 18:53 EST Encounter info: [id number], [facility], [facility], 09/14/2024 - 09/14/2024 Reason For Exam Cough [...] quadrant. IMPRESSION: Right lower lobe pneumonia. WSN: [id number] Ordering Physician: Lux Briggs I Signature Line Dictated By: Hanh Beatty MD Dictated Date/Time: 09/14/24 6:53 pm Reviewed By: Hanh Beatty MD Signed By: Hanh Beatty MD Signed Date/Time: 09/14/24 6:53 pm Transcribed By: CSMichele Transcribed Date/Time: 09/14/24 6:52 pm Chest 2 [...] March 26, 2020 10:23 EDT Encounter info: [id number], [facility], [facility], 03/26/2020 - * Final Report * Reason For Exam SPN;SPN RESULT: CT PET [facility] PET/CT Imaging VISIT NUMBER :[id number] Patient Name : Georgiana Costa Date of : 1960 Date of Exam : 03/26/2020 Referring Physician : CARMELA MELGOZA [facility] Thoracic Surgery [address], [address] [place] [address] Exam : PT - *SKULL BASE TO MID THIGH CPT 45471 - Room Description : *[facility] Pt4 Technique : See technique below [...] Pulmonary nodules--spiculate d, right middle lobe 01/[address] [facility] [address] chest 12/14/2018 Overview (03/19/2020): Result type: CT Angio Chest Result date: March 17, 2020 10:24 EDT Result status: Auth (Verified) Result title: CT Angio Chest Performed by: Ubaldo Tejeda MD on March 17, 2020 10:50 EDT Verified by: Ubaldo Tejeda MD on March 17, 2020 10:50 EDT Encounter info: [id number], [facility], [facility], 03/17/2020 - 03/17/2020 * Final Report * [...] 07/29/2019 and 05/07/2019. Prior granulomatous disease. A [facility] message has been communicated via the Scaleform system on 03/17/2020 10:48 AM, Message ID [id number]. WSN: [id number] Ordering Physician: Lux Briggs I Signature Line [...] January 18, 2019 19:26 EDT Encounter info: [id number], [facility], [facility], 01/18/2019 [...] Yellow message has been communicated via the Scaleform system on 01/18/2019 7:26 PM, Message ID [id number]. WSN: [id number] Signature Line Dictated By: Lizzette Padgett MD [...] Plan- endoscopy and colonoscopy to be done. [facility] 04/05/17>>Ms. Colon is 57 year old woman with longstanding [...] Osteopenia 05/03/2013 Overview (05/17/2018): dexa scan at [facility] on 05/19/14. -osteopenia. Overview: 05/19/2014 DEXA [...] no acute findings. Flank pain ,seen at [facility] -05/05/15 and renal and liver and gall [...] Over right middle lobe. 10/06/2011- seen by [facility] pulmoanry team. 01/18/16- CT scan - 3mm lateral right lung base noncalcified nodule as well as a 3mm right apical granuloma, no new nodules masses or adenopathy. Encounters Date Type Department Care Team Description 2025 Telemedicine Visit [address] [phone] Kwan Hernandez MD from Last 3 Months Immunizations Immunization Administration [...] 70 01/11/2025 1:48 PM EDT Temperature 36.8 C (98.2 F) 01/11/2025 1:48 PM EDT Respiratory Rate 16 01/11/2025 1:48 PM EDT Oxygen Saturation 98% 01/11/2025 1:48 PM EDT Inhaled Oxygen Concentration - - Weight 54.9 kg (121 lb) 01/11/2025 1:48 PM EDT Height 152.4 cm (5') 01/11/2025 1:48 PM EDT Body Mass Index 23.63 01/11/2025 1:48 PM EDT Plan of Treatment Health Maintenance Due Date Last Done Comments Medicare Annual Wellness Visit 1977 Imm-DTaP/Tdap/Td (1 - Tdap) 1978 CT Colonography 02/02/2004 Fecal DNA 02/02/2004 Flexible Sigmoidoscopy 02/02/2004 Imm-Pneumococcal 50+ (1 of 1 - PCV) 2009 Imm-Zoster, Recombinant (1 of 2) 2009 FIT/gFOBT 04/01/2018 04/01/2017 (Chloe castro by Outside Provider) Falls Prevention 02/02/2024 Depression Monitoring 04/13/2025 01/11/2025 , 09/28/2024, 04/13/2024, Additional history exists Imm-Influenza (Season Ended) 2025 10/10/2015 Hypertension Screening (#1) 01/11/2026 Tobacco Screening 2026 2025 Breast Cancer Screening (Mammogram) 04/26/2026 04/26/2024, 03/20/2022, 09/20/2015 (Managed by Outside Provider), Additional history exists Colonoscopy 04/01/2027 04/01/2017 Colorectal Cancer Screening 04/01/2027 Diabetes Screening 01/13/2028 01/12/2025, 0 11/26/2023, 03/17/2023, Additional history exists Lipid Screening 01/12/2030 01/12/2025, 11/19, 01/22/2022, Additional history exists Hepatitis C Screening Completed 10/20/2019 [id number] Discontinued 09/11/2021, 01/17, 01/19/2021, Additional history exists Bone Density Screening Completed 09/23/2023, 2021 Alcohol and Drug Screen Completed 01/12/20, 09/28/2024, 04/13/2024, Additional history exists Procedures Procedure Name Priority Date/Time Associated Diagnosis Comments OTHER ORDERS SCANNED DOCUMENT 02/03/2025 3:00 AM EDT REFERRAL SCANNED DOCUMENT 01/26/2025 3:00 AM EDT REFERRAL SCANNED DOCUMENT 01/26/2025 3:00 AM EDT COMPREHENSIVE METABOLIC PANEL Routine 01/12/2025 8:54 AM EDT Pneumonia of right lower lobe due to infectious organism Medication refill Hypotension, unspecified hypotension type Elevated LFTs LIPID PANEL Routine 01/12/2025 8:54 AM EDT Pneumonia of right lower lobe due to infectious organism Medication refill Hypotension, unspecified hypotension type Elevated LFTs MAMMO DIGITAL SCREEN ARABELLA W CAD 3D Routine 04/26/2024 3:00 AM EDT Breast cancer screening by mammogram DXA BONE DENSITY STUDY SITES AXIAL SKEL Routine 09/23/2023 3:00 AM EST Osteopenia, unspecified location HEPATITIS A,B,C PANEL Routine 10/20/2019 10:13 AM EST Chronic midline low back pain without sciatica Pulmonary nodules--spiculated , right middle lobe 01/[address] [facility] [address] chest Functional constipation Fibromyalgia Chronic abdominal pain COLONOSCOPY Routine 04/01/2017 from Last 3 Months or Most Recently Relevant to Health Maintenance Results * OTHER ORDERS SCANNED DOCUMENT (02/03/2025 3:00 AM EDT) 02/03/2025 3:00 AM EDT Sonal Sandhu PA-C SCAN OTHER ORDERS Final Resu lt * REFERRAL SCANNED DOCUMENT (01/26/2025 3:00 AM EDT) Only the most recent of2 resultswithin the time period is included. 01/26/2025 3:00 AM EDT Jl Escobar SCAN REFERRAL Final Result * (ABNORMAL) LIPID PANEL (01/12/2025 8:54 AM EDT) CHOLESTEROL, TOTAL 203(H) <200 mg/dL [place] [facility] HDL CHOLESTEROL 63 > OR = 50 mg/dL [place] TRIGLYCERIDES 66 <150 mg/dL [place] [facility] LDL-CHOLESTEROL 124(H) 99 mg/dL (calc) [place] Comment: Reference range: <100 Desirable range <100 mg/dL for primary prevention; <70 mg/dL for patients with CHD or diabetic patients with > or = 2 CHD risk factors. LDL-C is now calculated using the Anuj calculation, which is a validated novel method providing better accuracy than the Friedewald equation in the estimation of LDL-C. Tyree JURADO et al. MACARENA. 2013;310(19): 7722-0284 (http://education.Interior Define/faq/BCM228) CHOL/HDLC RATIO 3.2 <5.0 (calc) [facility] NON-HDL CHOLESTEROL 140(H) <130 mg/dL (calc) [facility] Comment: For patients with diabetes plus 1 major ASCVD risk factor, treating to a non-HDL-C goal of <100 mg/dL (LDL-C of <70 mg/dL) is considered a therapeutic option. Blood Blood / Unknown 01/12/2025 8 :54 AM EDT 01/12/2025 8:56 AM EDT Narrative [facility] - 01/13/2025 10:14 AM EDT FASTING:YES us Sonal Sandhu PA-C LAB - BLOOD DRAW Final Resul t [facility] [address] [place] [id number], [facility] [address] [place] [phone] * COMPREHENSIVE METABOLIC PANEL (01/12/2025 8:54 AM EDT) GLUCOSE 84 65 - 99 mg/dL [facility] Comment: Fasting reference interval UREA NITROGEN (BUN) 13 7 - 25 mg/dL [facility] CREATININE (blood) 0.65 0.50 - 1.05 mg/dL [facility] EGFR 98 > OR = 60 mL/min/1. 73m2 [facility] BUN/CREATININE RATIO SEE NOTE: [facility] Comment: Not Reported: BUN and Creatinine are within reference range. SODIUM 141 135 - 146 mmol/L [facility] POTASSIUM 4.4 3.5 - 5.3 mmol/L [facility] CHLORIDE 105 98 - 110 mmol/L [facility] CARBON DIOXIDE 28 20 - 32 mmol/L [place] [facility] CALCIUM 9.4 8.6 - 10.4 mg/dL [place] PROTEIN, TOTAL 7.2 6.1 - 8.1 g/dL [place] ALBUMIN 4.1 3.6 - 5.1 g/dL [place] GLOBULIN 3.1 1.9 - 3.7 g/dL (calc) [place] [facility] ALBUMIN/GLOBULI N RATIO 1.3 1.0 - 2.5 (calc) [place] [facility] BILIRUBIN, TOTAL 0.4 0.2 - 1.2 mg/dL [place] ALKALINE PHOSPHATASE 68 37 - 153 U/L [place] [facility] AST 18 10 - 35 U/L [place] [facility] ALT 15 6 - 29 U/L [place] [facility] Blood Blood / Unknown 01/12/2025 8 :54 AM EDT 01/12/2025 8:56 AM EDT Narrative [place] [facility] - 01/13/2025 10:14 AM EDT FASTING:YES Sonal Sandhu PA-C LAB - BLOOD DRAW Final Resul t [place] [facility] [address] [address], [place] [facility] [address] [phone] * MAMMO DIGITAL SCREEN ARABELLA W CAD 3D (04/26/2024 3:00 AM EDT) 04/26/2024 3:00 AM EDT Sonal Sandhu PA-C IMG MAMMO Edited Resul t - Final [facility] Corporate Office [address], [address] [place] [address], * DXA BONE DENSITY STUDY 1/> SITES AXIAL SKEL (09/23/2023 3:00 AM EST) 09/23/2023 3:00 AM EST Sonal Sandhu PA-C IMG DXA Edited Resul t - Final * (ABNORMAL) HEPATITIS A,B,C PANEL (10/20/2019 10:13 AM EST) HEPATITIS B SURFACE ANTIBODY NEGATIVE NEGATIVE [facility] HEPATITIS B SURFACE ANTIGEN NEGATIVE NEGATIVE [facility] Comment: Over the counter supplements containing high doses of biotin may interfere with this assay. If interference is suspected, patients shoud be retested after refraining from biotin supplements for 72 hours. HEPATITIS C VIRUS DIAGNOSTIC NEGATIVE NEGATIVE [facility] HEPATITIS B CORE ANTIBODY NEGATIVE NEGATIVE [facility] HEPATITIS A ANTIBODY TOTAL POSITIVE(A) NEGATIVE [facility] Comment: Over the counter supplements containing high doses of biotin may interfere with this assay. If interference is suspected, patients shoud be retested after refraining from biotin supplements for 72 hours. Blood specimen (specimen) Blood / Unknown 10/20/2019 10:13 AM EST 10/20/2019 12:17 PM EST Narrative [facility] - 10/20/2019 5:05 PM EST [employer], [place] [address] Death Claim Clerk - Yane Schrader MD [place] [id number] ORD# [id number] Sonal Sandhu PA-C LAB - BLOOD DRAW Edited Resu lt - Final Performing Organization Address City/State/[facility] [place] [address], * COLONOSCOPY (04/01/2017) Impressions Nichole Aguirre - [...] Relevant to Health Maintenance Insurance [place] Care Teams Cook Syrup Maker Relationship Specialty Start Date End Date Sonal Sandhu PA-C [facility] [place] [phone] PCP - General Internal Medicine 07/27/18
--- OUTSIDE RECORDS SUMMARY | 2025-04-20 13:31 | XMS_ITS | Clinical Summary ---
Author Organization [facility] Address [address] [place] [address] Care Team Providers Care Stamping Press Operator Name Role Phone Sonal Sandhu Primary Care Provider [phone] Surgical History Surgery Date Site/Laterality Comments COLONOSCOPY 04/01/2017 PROCEDURE: HISTORICAL COLONOSCOPY; COMMENT: Dr archer, small int hemorrhoid only finding HYSTERECTOMY PROCEDURE: HISTORICAL HYSTERECTOMY ESOPHAGOGASTRODUODENOSCOPY 04/01/2017 PROCEDURE: SD ESOPHAGOGASTRODUODENOSCOPY TRANSORAL DIAGNOSTIC; COMMENT: Dr Archer, normal [...] depression 05/21/2017 DX:Major depres alvin; COMMENT: F/u [facility] Vascular dementia ([facility] V 24, [facility] V28) 05/21/2017 DX:Vascular dementia ([facility]); COMMENT: F/u Dr. Gilliland Osteopenia 05/21/2017 DX:Osteopenia; [...] ars (1 of 2 - PCV) 1978 Zoster [...] age to complete this topic Care Teams Stamping Press Operator Relationship Specialty Start Date End Date Sonal Sandhu PA [address] [place] [address] PCP - General Internal Medicine 04/13/19
== END 2025-04-20 13:23 | disposition home or self-care (01) ==
LOC: HO.MAMMO 13:22
PROVIDERS: PCP Physician Assistant; Visit Provider Internal Medicine
DX: M81.0 Age-related osteoporosis without current pathological fracture (principal)
CPT/HCPCS: 77080

== ENCOUNTER → 2025-04-20 13:30 | Outpatient (BNV) | payer MEDICARE, MEDICAID, SELFPAY | PROVIDERS: PCP Physician Assistant; Visit Provider Radiology Diagnostic Radiology | DX: E28.39 Other primary ovarian failure (principal) | CPT/HCPCS: 77080 ==

== ENCOUNTER 2025-05-01 09:34 | Outpatient (AMB) | payer MEDICARE, MEDICAID, SELFPAY ==
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
[2025-05-01 09:40] VITALS: BP 108/68; PULSE 78; O2SAT 98; BMI 21.3
--- OUTSIDE RECORDS SUMMARY | 2025-05-01 10:00 | XMS_ITS | Clinical Summary ---
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 Name Role Phone Sonal Sandhu Primary Care Provider [phone] Surgical History Surgery Date Site/Laterality Comments COLONOSCOPY 04/01/2017 PROCEDURE: HISTORICAL COLONOSCOPY; COMMENT: Dr arcehr, small int hemorrhoid only finding HYSTERECTOMY PROCEDURE: HISTORICAL HYSTERECTOMY ESOPHAGOGASTRODUODENOSCOPY 04/01/2017 PROCEDURE: MS ESOPHAGOGASTRODUODENOSCOPY TRANSORAL DIAGNOSTIC; COMMENT: Dr Archer, normal [...] depression 05/21/2017 DX:Major depres alvin; COMMENT: F/u [facility] Vascular dementia ([facility] V 24, [facility] V28) 05/21/2017 DX:Vascular dementia ([facility]); COMMENT: F/u Dr. Gilliland Osteopenia 05/21/2017 DX:Osteopenia; [...] Falls Risk Assessment 02/02/2024 Influenza Vaccine (#1) 2025 HIB Vaccines Aged Out No longer [...] age to complete this topic Care Teams Field Crop Grower Relationship Specialty Start Date End Date Sonal Sandhu PA [address] [place] [address] PCP - General Internal Medicine 04/13/19
--- OUTSIDE RECORDS SUMMARY | 2025-05-01 10:00 | XMS_ITS | Clinical Summary ---
Author Organization [facility] Address [address] [place] [address] Care Team Providers Care Mastic Sprayer Name Role Phone Sonal Sandhu PA-C Primary Care Provider [phone] Source Comments PLEASE NOTE, if this patient [...] September 14, 2024 18:53 EST Encounter info: [id number], [facility], [facility], 09/14/2024 - 09/14/2024 Reason For Exam [...] quadrant. IMPRESSION: Right lower lobe pneumonia. WSN: [id number] Ordering Physician: Lux Briggs I Signature Line Dictated By: Hanh eBatty MD Dictated Date/Time: 09/14/24 6:53 pm Reviewed [...] March 26, 2020 10:23 EDT Encounter info: [id number], [facility], 03/26/2020 - * Final Report * Reason For Exam SPN;SPN RESULT: CT PET [facility] PET/CT Imaging VISIT NUMBER :[id number] Patient Name : Georgiana Costa Date of : 1960 Date of Exam : 03/26/2020 Referring Physician : CARMELA MELGOZA [facility] Thoracic Surgery [address], [address] [place] [address] Exam : PT - *SKULL BASE TO MID THIGH CPT 66117 - Room Description : *[facility] Pt4 Technique : See technique below Final [...] Pulmonary nodules--spiculate d, right middle lobe 01/2019 [facility] CT chest 12/14/2018 Overview (03/19/2020): Result type: CT Angio Chest Result date: March 17, 2020 10:24 EDT Result status: Auth (Verified) Result title: CT Angio Chest Performed by: Ubaldo Tejeda MD on March 17, 2020 10:50 EDT Verified by: Ubaldo Tejeda MD on March 17, 2020 10:50 EDT Encounter info: [id number], [facility], [facility], 03/17/2020 - 03/17/2020 * Final [...] 07/29/2019 and 05/07/2019. Prior granulomatous disease. A Foster message has been communicated via the DLC system on 03/17/2020 10:48 AM, Message ID [id number]. WSN: [id number] Ordering Physician: Lux Briggs I Signature Line [...] January 18, 2019 19:26 EDT Encounter info: [id number], [facility] [place], 01/18/2019 - * Final [...] Yellow message has been communicated via the DLC system on 01/18/2019 7:26 PM, Message ID [id number]. WSN: [id number] Signature Line Dictated By: Lizzette Padgett MD [...] Plan- endoscopy and colonoscopy to be done. [facility] 04/05/17>>Ms. Colon is 57 year old woman [...] Osteopenia 05/03/2013 Overview (05/17/2018): dexa scan at [facility] on 05/19/14. -osteopenia. Overview: 05/19/2014 DEXA [...] no acute findings. Flank pain ,[place] [facility] [place] and renal and [...] Over right middle lobe. 10/06/2011- seen by [facility] [place]mo[place] team. 01/18/16- CT scan - 3mm lateral right lung base noncalcified nodule as well as a 3mm right apical granuloma, no new nodules masses or adenopathy. Encounters Date Type Department Care Team Description 2025 Telemedicine Visit [address] [id number] Kwan Hernandez MD from Last [...] e alcohol) Social Connections Answer Date Recorded How often do you feel lonely or isolated from th ose around you? 1 01/11/2025 Financial Resource Strain Answer Date R ecorded Hard to pay for: Food 1 01/11/2025 Stress Answer Date Recorded Do you feel these kinds of stress these days? 1 01/11/2025 Physical Activity Answer Date Recorded Physical Activity 0 06/06/2019 Food Insecurity Answer Date Recorded Hard to pay for: Food 1 01/11/2025 Transportation Needs Answer Date Record ed Hard to pay for: Transportation 1 01/11/2025 Housing Stability Answer Date Recorded Hard to pay for: Rent/Mortgage payment 1 01/11/2025 Safety and Environment Answer Date Syed rded Safety 1 04/13/2024 Utilities Answer Date Recorded Hard to pay for: Utilities 1 01/11 Employment Answer Date Recorded Stress 0 03/11/2023 [...] Additional history exists Imm-Influenza (#1) 2025 10/10/2015 Hypertension Screening (#1) 01/11/2026 Tobacco Screening 2026 2025 Breast Cancer Screening (Mammogram) 04/26/2026 04/26/2024, 03/20/2022, 09/20/2015 (Managed by Outside Provider), Additional history exists Colonoscopy 04/01/2027 04/01/2017 Colorectal Cancer Screening 04/01/2027 Diabetes Screening 01/13/2028 01/12/2025, 0 11/26/2023, 03/17/2023, Additional history exists Lipid Screening 01/12/2030 01/12/2025, 11/19, 01/22/2022, Additional history exists Hepatitis C Screening Completed 10/20/2019 [id number] Discontinued 09/11/2021, 01/17, 01/19/2021, Additional history exists Alcohol and Drug Screen Completed 01/12/20, 09/28/2024, 04/13/2024, Additional history exists Bone Density Screening Completed , 04/20/2025, 09/23/2023, Additional history exists Procedures Procedure Name Priority Date/Time Associated Diagnosis Comments HISTORIC DEXA SCAN 04/20/2025 3: 00 AM EDT HISTORIC DEXA SCAN 04/20/2025 3: 00 AM EDT OTHER ORDERS SCANNED DOCUMENT 02/03/2025 3:00 AM EDT COMPREHENSIVE METABOLIC PANEL Routine [...] AM EDT Breast cancer screening by mammogram HEPATITIS A,B,C PANEL Routine 10/20/2019 10:13 AM EST Chronic midline low back pain without sciatica Pulmonary nodules--spiculated , right middle lobe 01/[address] [facility] CT chest Functional constipation Fibromyalgia Chronic abdominal pain COLONOSCOPY Routine 04/01/2017 from Last 3 Months or Most Recently Relevant to Health Maintenance Results * HISTORIC DEXA SCAN (04/20/2025 3:00 AM EDT) Only the most recent of2 resultswithin the time period is included. 04/20/2025 3:00 AM EDT us Sonal Sandhu PA-C IMG DXA Final Result * OTHER ORDERS SCANNED DOCUMENT (02/03/2025 3:00 AM EDT) 02/03/2025 3:00 AM EDT us Sonal Sandhu PA-C SCAN OTHER ORDERS Final Resu lt * (ABNORMAL) LIPID PANEL (01/12/2025 8:54 AM EDT) [facility] Signature CHOLESTEROL, TOTAL 203(H) <200 mg/dL [facility] HDL CHOLESTEROL 63 > OR = 50 mg/dL [facility] TRIGLYCERIDES 66 <150 mg/dL [facility] LDL-CHOLESTEROL 124(H) 99 mg/dL (calc) [facility] Comment: Reference range: <100 Desirable range <100 mg/dL for primary prevention; <70 mg/dL for patients with CHD or diabetic patients with > or = 2 CHD risk factors. LDL-C is now calculated using the Anuj calculation, which is a validated novel method providing better accuracy than the Friedewald equation in the estimation of LDL-C. Tyree JURADO et al. MACARENA. 2013;310(19): 5086-2170 (http://education.[employer]/faq/TYT869) CHOL/HDLC RATIO 3.2 <5.0 (calc) [facility] NON-HDL CHOLESTEROL 140(H) <130 mg/dL (calc) [facility] Comment: For patients with diabetes plus 1 major ASCVD risk factor, treating to a non-HDL-C goal of <100 mg/dL (LDL-C of <70 mg/dL) is considered a therapeutic option. Blood Blood / Unknown 01/12/2025 8 :54 AM EDT 01/12/2025 8:56 AM EDT Narrative [facility] - 01/13/2025 10:14 AM EDT FASTING:YES Sonal Sandhu PA-C LAB - BLOOD DRAW Final Resul t [facility] [address] [address], [facility] [address] [place] [address] * COMPREHENSIVE METABOLIC PANEL (01/12/2025 8:54 AM EDT) GLUCOSE 84 65 - 99 mg/dL [facility] Comment: Fasting reference interval UREA NITROGEN (BUN) 13 7 - 25 mg/dL [facility] CREATININE (blood) 0.65 0.50 - 1.05 mg/dL [facility] EGFR 98 > OR = 60 mL/min/1. 73m2 [facility] BUN/CREATININE RATIO SEE NOTE: [facility] Comment: Not Reported: BUN and Creatinine are within reference range. SODIUM 141 135 - 146 mmol/L [facility] POTASSIUM 4.4 3.5 - 5.3 mmol/L [facility] CHLORIDE 105 98 - 110 mmol/L [facility] CARBON DIOXIDE 28 20 - 32 mmol/L [facility] CALCIUM 9.4 8.6 - 10.4 mg/dL [facility] PROTEIN, TOTAL 7.2 6.1 - 8.1 g/dL [facility] ALBUMIN 4.1 3.6 - 5.1 g/dL [facility] GLOBULIN 3.1 1.9 - 3.7 g/dL (calc) [facility] ALBUMIN/GLOBULI N RATIO 1.3 1.0 - 2.5 (calc) [facility] BILIRUBIN, TOTAL 0.4 0.2 - 1.2 mg/dL [facility] ALKALINE PHOSPHATASE 68 37 - 153 U/L [facility] AST 18 10 - 35 U/L [facility] ALT 15 6 - 29 U/L [facility] Blood Blood / Unknown 01/12/2025 8 :54 AM EDT 01/12/2025 8:56 AM EDT Narrative [facility] - 01/13/2025 10:14 AM EDT FASTING:YES Sonal Sandhu PA-C LAB - BLOOD DRAW Final Resul t [facility] [address] [address], [facility] [address] [address] * MAMMO DIGITAL SCREEN ARABELLA W CAD 3D (04/26/2024 3:00 AM EDT) 04/26/2024 3:00 AM EDT Sonal Sandhu PA-C IMG MAMMO Edited Resul t - Final [facility] Corporate Office [address], [address] [place] [address], [place] [phone] * (ABNORMAL) HEPATITIS A,B,C PANEL (10/20/2019 10:13 AM EST) HEPATITIS B SURFACE ANTIBODY NEGATIVE NEGATIVE [facility] HEPATITIS B SURFACE ANTIGEN NEGATIVE NEGATIVE [facility] Comment: Over the counter supplements containing high doses of biotin may interfere with this assay. If interference is suspected, patients shoud be retested after refraining from biotin supplements for 72 hours. HEPATITIS C VIRUS DIAGNOSTIC NEGATIVE NEGATIVE [facility] HEPATITIS B CORE ANTIBODY NEGATIVE NEGATIVE [facility] HEPATITIS A ANTIBODY TOTAL POSITIVE(A) NEGATIVE [facility] Comment: Over the counter supplements containing high doses of biotin may interfere with this assay. If interference is suspected, patients shoud be retested after refraining from biotin supplements for 72 hours. Blood specimen (specimen) Blood / Unknown 10/20/2019 10:13 AM EST 10/20/2019 12:17 PM EST Narrative [facility] - 10/20/2019 5:05 PM EST [employer], [place] [address] Business Development Agent - Yane Schrader MD [place] ID [id number] ORD# [id number] Sonal Sandhu PA-C LAB - BLOOD DRAW [place] [address], * COLONOSCOPY (04/01/2017) Impressions Nichole Aguirre - [...] Relevant to Health Maintenance Insurance [place] Care Teams Mastic Sprayer Relationship Specialty Start Date End Date Sonal Sandhu PA-C [address] [place] [id number] PCP - General Internal Medicine 07/27/18
== END 2025-05-01 10:01 | disposition home or self-care (01) ==
LOC: HO.HPS 09:34
PROVIDERS: PCP Physician Assistant; Visit Provider Hospitalist
DX: R91.8 Other nonspecific abnormal finding of lung field (principal); R07.81 Pleurodynia; J45.41 Moderate persistent asthma with (acute) exacerbation; R05.9 Cough, unspecified; K44.9 Diaphragmatic hernia without obstruction or gangrene; K21.9 Gastro-esophageal reflux disease without esophagitis; B02.29 Other postherpetic nervous system involvement
CPT/HCPCS: 99214

== ENCOUNTER → 2025-05-01 09:34 | Outpatient (BNVA) | payer MEDICARE, MEDICAID, SELFPAY | PROVIDERS: PCP Physician Assistant; Visit Provider Hospitalist | DX: J45.41 Moderate persistent asthma with (acute) exacerbation (principal); R91.8 Other nonspecific abnormal finding of lung field; R07.81 Pleurodynia; R05.3 Chronic cough; K44.9 Diaphragmatic hernia without obstruction or gangrene; K21.9 Gastro-esophageal reflux disease without esophagitis; B02.29 Other postherpetic nervous system involvement; Z79.899 Other long term (current) drug therapy | CPT/HCPCS: 99212 ==

== ENCOUNTER 2025-06-21 11:15 | Outpatient (AMB) | payer MEDICARE, MEDICAID, SELFPAY ==
--- NOTE | 2025-06-21 11:19 | A.OFFVIS_ITS ---
Vital Signs 06/21/25 11:22 Height 5 ft 3 in Weight 116 lb 13.52 oz BMI 20.7 BP 116/65 Blood Pressure Location Lt brachial Position Sitting Pulse 79 Intake Visit Reasons: 3 months FD Intake Note: Georgiana presents in the office as a 3 month follow up for FD. CC: She states that she has issues with her weight loss and states that she eats just fine. Angledozer Operator Required: No Allergies nitrofurantoin (Macrobid) Allergy (Severe, Verified 05/01/25 09:42) Infection HPI Comments Details: This is a 63y.o F with PMH of multiple pulmonary nodules who is here for follow up. 07/31/23: Previous GI used to be at [facility] who recently left so she is looking to switch providers. Was last seen there a year ago. Has had an EGD and colo 3-4 years ago. Reports having polyps removed from the colon. Pt reports that she has been having abd discomfort in epigastrium that radiates to her R side. Started almost 3 months ago. Assoc with nausea and loss of appetite but no unintentional weight loss. Pain is often postprandial, not assoc with bowel habit changes. Did take PPI for this which did not help much. Does not take any NSAIDs. No recent travel. She also mentions that she was told about absorption issues after she had a dexa scan that showed weak bones. 11/16/23: Was lost to follow up when office tried multiple times to contact her for EGD. Now returning for follow up for essentially unchanged upper GI complaints. Reports frequent postprandial abd discomfort with nausea. Also reports losing 50 lbs in a year however NOT corroborated by weights in chart, remains stable. Labs were reviewed with the pt and are all normal. Pt also had a dexa scan at [place] last month that confirms osteoporosis. 12/22/23: * Irregular Z line (biopsy) * Hiatal hernia * Gastric polyps * Normal gastric mucosa (biopsy) * Normal duodenum (biopsy) Path: A. Duodenum, biopsy: Duodenal mucosa within normal limits; preserved villous architecture and no increase in intraepithelial lymphocytes seen. B. Stomach, biopsy: Gastric antral mucosa with mild chronic inactive gastritis; gastric body mucosa within normal limits; negative for Helicobacter pylori, intestinal metaplasia and dysplasia. C. Gastroesophageal junction, biopsy: Squamous and columnar junctional mucosa with mild chronic active inflammation; negative for intestinal metaplasia and dysplasia. 01/06/24: Here for post EGD follow up. Results of the EGD and path reviewed which are overall reassuring. Reports no change in sx. Still complains of chest pain and pressure with bloating. Has been taking omeprazole. Stopped her nortriptyline a few months ago - she is unsure if she ran out or was asked to stop it to avoid a drug interaction. In fact tells me she stopped all her meds a few weeks ago. From chart review - has hx of anxiety and adjustment disorder. Used to see [facility] but could not form a rapport with the new therapist so stopped going 2 years ago. Also noted to have osteoporosis on dxa 09/2023 but has not been seen by endocrine. 02/22/24: Here for follow up with her partner. Reports an array of abd complaints as well as headache and numbness in her face. Has still not resumed any of the meds, in fact tells me her PCP and alterations manager advised her to cont to stay off all meds for now. Only taking omeprazole epr her report. In terms of her persistent complaint of abd discomfort with bloating and poor appetite a CT abd/pel was ordered. This is miles for 02/24. 03/25/24: Here for follow up. CT 02/24: No acute abnormality in the abdomen or pelvis. Constipation. Reports improvement in epigastric discomfort and RUQ pain since starting notriptyline. OCc has break through pain may be once a week. Does not recall the nortriptyline dose that shes taking. 07/04/24: 3 month follow up. Continues with constellation of complaints including abd pain, N,V constipation. Also remains worried about weight loss although weight curve stable per [employer]. Reports stopped taking nortriptyline as was also started on escitalopram. She is unsure who initiated this medication. Pharmacist advised her to take either of the two so shes only taking escitalopram as it seemed to be helping her anxiety. Pt today mentions that she in fact did get a letter from [facility] for colo follow up, so is actually due this year and not 2024. 11/23/24: Here for follow up. Canceled her colonoscopy appt last month as pt was under the impression she had one recently. ALso had covid. Pt reports she was able to call [facility] and find out her colonoscopy was in March 2017. She is now amenable to miles this. ALso getting pulm work up done for chronic RML mucus plugging. Bronchoscopy pending. 12/09/24: Here as urgent visit for R flank pain and burning which shifts to L side if she lays on that side. Ongoing x 1 week. Being managed as possible post herpetic neuralgia by her realtime reporter. No other GI complaints with this to include changes in appetite, N/V. Pt had brought up occ dysphagia to realtime reporter, but does not report any s ignificant burdent of sx to me today. In fact inquires if needs to do barium swallow as already has had almost 10 XRay/CTs in the past year. 03/09/25: EGD/colo 1. Irregular Z line (biopsy, tissue cypher) 2. Hiatal hernia 3. Normal stomach (biopsy) 3. Normal duodenum 5. Normal colon and terminal ileum mucosa 6. 2 polyps removed 7. Internal and external hemorrhoids Path: A. Stomach, antrum, biopsy: Gastric antral mucosa with mild chronic inactive gastritis; negative for Helicobacter pylori, intestinal metaplasia and dysplasia. B. Stomach, body, biopsy: Gastric body mucosa within normal limits; negative for Helicobacter pylori, intestinal metaplasia and dysplasia. C. Gastroesophageal junction, biopsy: Squamocolumnar junctional mucosa with mild chronic inflammation; negative for intestinal metaplasia and dysplasia. D. Stomach, polyp, biopsy: Polypoid gastric body mucosa with mild PPI effect; negative for Helicobacter pylori, intestinal metaplasia and dysplasia. E. Rectum, polypectomy: Hyperplastic polyp. F. Colon, transverse, polypectomy: Tubular adenoma; negative for high-grade dysplasia. 03/20/25: Pt here for post procedure follow up. Accompanied by her . Cont to have intermittent R sided abd pain with nausea. This does not get better with PPI. Reviewed that no gastritis and/or duodenitis noted on EGD so not surprised pain doesnt get better with PPI. Likely 2/2 functional dyspepsia and would recommend TCA trial - pt recalls was put on this almost 3-5 years ago as well but then stopped taking it. Currently NOT taking any meds including escitalopram. Pt also reports diffuse body aches and joint pains. Has known osteoporosis but not on Vit D supplementation or anti resporptive therapy. Last dexa was over 5 years ago per her report. 06/21/25: Here for follow up. Reports persistent sensation of globus and has to frequently clear her throat. Occ getting abd pain but reports good respobse to nortiptyline. Has improved the appetite and energy levels. However pt also reports blurry vision and dry eyes. Initially plan was to increase it to 30 but will hold off for now. [facility] Medical History Asthma Pneumonia Osteopenia Hiatal hernia with GERD Post herpetic neuralgia Chest pain Chronic cough Pulmonary nodules Surgical History Hx of colonoscopy History of esophagogastroduodenoscopy (EGD) Social History Patient Tobacco Use Status: Never used Tobacco Review of Systems Const All systems reviewed & are unremarkable except as noted in HPI and below Physical Exam Exam Exam: No apparent distress Nonicteric Abdomen soft, nondistended Alert and oriented x3, normal gait Vital Signs: Last Vital Signs Pulse 79 06/21/25 11:22 BP 116/65 06/21/25 11:22 BMI result Body Mass Index 20.7 Assessment & Plan Assessment & Plan (1) Functional dyspepsia: Code(s): K30 - Functional dyspepsia Category: Medical (2) Osteoporosis: Code(s): M81.0 - Age-related osteoporosis without current pathological fracture Category: Medical (3) Personal history of colonic polyps: Code(s): Z86.010 - Personal history of colon polyps Category: Medical Plan 1. functional dyspepsia Pt with excellent response to nortriptyline 20. Reviewed increasing to 30 mg to optimize furhter but due to side effects of dry eyes and blurry vision will up it to 25 only for now. Plan: - nortriptyline 25 once daily at bedtime - pt advised to cut back down to 20 if notices worsening of dry eyes 2. Osteoporosis Based on most recent dexa scan. Plan: - Stop omeprazole - Start famotidine 10 at night time instead - Endo referral pending. 3. Personal hx of polyps Had 1 T.A on colo done last month. Repeat colo recommended in 0710-0000 years. Follow up 6 months Medications: New famotidine 10 mg PO BEDTIME 90 tabs 1RF Changed From nortriptyline take 1 capsule for 2 weeks, and then increase to 2 capsules 10 mg PO BEDTIME 90 days 120 caps 0RF To nortriptyline 25 mg PO BEDTIME 90 caps 1RF 90 days Discontinued omeprazole Discontinued Reason: Duplicate 20 mg PO DAILY 90 caps 1RF Coding Level of Care Code Est Pt Level 4 (31458) Diagnoses Functional dyspepsia K30 Osteoporosis M81.0 Personal history of colonic polyps Z86.010
[2025-06-21 11:22] VITALS: BP 116/65; PULSE 79; BMI 20.7
== END 2025-06-21 11:50 | disposition home or self-care (01) ==
LOC: HO.HGI 11:16
PROVIDERS: PCP Physician Assistant; Visit Provider Internal Medicine
DX: K30 Functional dyspepsia (principal); M81.0 Age-related osteoporosis without current pathological fracture; Z86.0100 Personal history of colon polyps, unspecified
CPT/HCPCS: 99214

== ENCOUNTER → 2025-06-21 11:15 | Outpatient (BNVA) | payer MEDICARE, MEDICAID, SELFPAY | PROVIDERS: PCP Physician Assistant; Visit Provider Internal Medicine | DX: K30 Functional dyspepsia (principal); M81.0 Age-related osteoporosis without current pathological fracture; Z86.0100 Personal history of colon polyps, unspecified | CPT/HCPCS: 99212 ==

== ENCOUNTER 2025-07-25 10:56 | Outpatient (AMB) | payer MEDICARE, MEDICAID, SELFPAY ==
[2025-07-25 11:01] VITALS: BP 98/60; PULSE 74; O2SAT 98; BMI 21.9
--- NOTE | 2025-07-25 11:01 | A.OFFVIS_ITS ---
Vital Signs 07/25/25 11:01 Height 5 ft 3 in Weight 123 lb 7.342 oz BMI 21.9 BP 98/60 Blood Pressure Location Rt brachial Position Sitting Pulse 74 Pulse Source Pulse Oximeter Pulse Oximetry (%) 98 Oxygen Delivery Method Room Air Intake Visit Reasons: Age-related osteoporosis without current pathologi Intake Note: NEW Patient presents today to establish care for Age-related osteoporosis without current pathological: Anesthesia Director Required: No Accompanied by: Self / Same As Patient Allergies nitrofurantoin (Macrobid) Allergy (Severe, Verified 07/25/25 11:27) Infection Medication List - Last Reconciled 07/25/25 by Yeset Dolores Carreno MD albuterol sulfate 90 mcg/actuation 90 mcg inhalation Q4H PRN albuterol sulfate 2.5 mg (3 mL) inhalation Q6H PRN 30 days cyclosporine 0.05% (Restasis) drps ophthalmic (eye) Q12H diclofenac sodium 75 mg PO BID dicyclomine 10 mg PO TID PRN escitalopram oxalate 10 mg PO DAILY famotidine 10 mg PO BEDTIME fludrocortisone 0.05 mg PO DAILY lidocaine 5% (Lidoderm) 1 patch topical DAILY 30 days mirabegron ER (Myrbetriq) 25 mg PO DAILY montelukast (Singulair) 10 mg PO BEDTIME 30 days nortriptyline 25 mg PO BEDTIME 90 days sennosides (senna) 1.25 mg (0.1453 x 8.6 mg) PO DAILY PRN vibegron (Gemtesa) 75 mg PO DAILY HPI Comments Details: 65 years old female with past medical history of asthma, functional dyspepsia, history of colonic polyps, GERD, fibromyalgia, seen in the office for evaluation of osteoporosis. The patient, concerned about osteoporosis, reports significant bone pain that impacts her daily life and causes persistent discomfort. She experiences chron ic back pain and fibromyalgia which seems on resolved despite numerous evaluations. She expressed overall feeling of depression due to her need for assistance and lack of independence performing daily activities without help. She reports that she has taken prednisone tapers 2 or 3 times this year, most of them for pulmonary problems. She Maintains an active lifestyle, including walking, stair climbing, and performing daily activities independently, despite back pain. No specific family history of osteoporosis or fractures. High intake of sweets, chocolate, and coffee; lacks a structured exercise routine. No prior bone density scan No history of fall or fractures No balance problem Patient Reports that she started taking vitamin-D 2 or 3 a month ago She has pending to have a root canal at some point, but no dental extractions are planned Physical exam: General: Well appearing. NAD. Not Cushingoid or Acromegalic Neck/Thyroid: Thyroid not palpable, no nodules. Eyes: No conjunctival injection, not lid lag or proptosis CV: RRR, no murmur. No edema. Resp:Lungs clear to auscultation bilaterally Abdomen: Soft, nontender. nondistended Extremities/Neuro: No weakness or tremor of outstretched hands. No pain to palpation of spinous processes Laboratory Tests: 07/31/23 02/25/24 10/14/24 14:29 08:08 15:30 Creatinine 0.68 0.73 0.80 Estimated GFR > 60 > 60 > 60 Calcium 9.3 8.8 Alkaline Phosphatase 82 81 Albumin 4.0 3.4 L 25-OH Vitamin D Total 38.4 TSH 1.18 Imaging: DEXA 04/20/2025 FINDINGS: The bone mineral density of the lumbar spine is 0.949 g/cm2, corresponding to a T-score of -1.9, and a Z-score of 0.1. This is indicative of osteopenia. The bone mineral density of the left total hip is 0.736 g/cm2, corresponding to a T-score of -2.2, and a Z-score of -0.6. This is indicative of osteopenia. The bone mineral density of the left femoral neck is 0.689 g/cm2, corresponding to a T-score of -2.5, and a Z-score of -0.7. This is indicative of osteoporosis. FRACTURE RISK: The FRAX index suggests a risk of major osteoporotic fracture of 15.1%, and of hip fracture 4.3%. IMPRESSION: Based on bone mineral density, and according to World Health Organization (WHO) criteria, the diagnosis is consistent with osteoporosis. [facility] Medical History Asthma Pneumonia Osteopenia Hiatal hernia with GERD Post herpetic neuralgia Chest pain Chronic cough Pulmonary nodules Surgical History Hx of colonoscopy History of esophagogastroduodenoscopy (EGD) Family History Father No problems noted. Mother No problems noted. Social History Alcohol intake: current Alcohol intake frequency: does not drink Patient Tobacco Use Status: Never used Tobacco Physical Exam Vital Signs: Last Vital Signs Pulse 74 07/25/25 11:01 BP 98/60 07/25/25 11:01 Pulse Ox 98 07/25/25 11:01 Oxygen Delivery Method Room Air 07/25/25 11:01 BMI result Body Mass Index 21.9 Assessment & Plan Assessment & Plan (1) Osteoporosis: Code(s): M81.0 - Age-related osteoporosis without current pathological fracture Category: Medical Plan: Age-related osteoporosis without concomitant pathologic fracture. Most likely isolated, secondary causes of osteoporosis should be ruled out like hyper parathyroidism, hypothyroidism, vitamin-D deficiency; as patient does not have recent labs we will order all labs to rule out these. Given her bone density scan showing T-score -2.5 on left femoral neck, she is at increased risk for pathologic fracture and is likely a candidate for bisphosphonates or Prolia, once secondary causes of osteoporosis are ruled out. She does not have any immediate contraindication to these medications but will discuss further with her in the next visit. Plan Discussed with the patient the physiology of bone, the meaning of osteoporosis as well as pathological fractures and its consequences. Addressed patient concerns about bone pain and explained that osteoporosis is not a painful disease in itself, I encouraged the patient to discuss her pain with her PCP as it is affecting her quality of life. Advised the patient increase consumption of dietary calcium Advised the patient to take vitamin-D at least 1000 IU daily Encourage the patient to engage on weight-bearing and strength training exercises next Address fall prevention strategies We will discuss treatment strategies in the next visit when we have results of that blood work Orders: Orders Thyroid Stimulating Hormone Today M81.0 - Age-related osteoporosis without current pathological fracture Basic Metabolic Panel Today M81.0 - Age-related osteoporosis without current pathological fracture Creatinine, 24 Hr Group Today M81.0 - Age-related osteoporosis without current pathological fracture Calcium, 24 Hr Ur Today M81.0 - Age-related osteoporosis without current pathological fracture Phosphorus Today M81.0 - Age-related osteoporosis without current pathological fracture Magnesium Today M81.0 - Age-related osteoporosis without current pathological fracture Vitamin D 25-OH Total Today M81.0 - Age-related osteoporosis without current pathological fracture Patient Instructions: 24-Hour Urine Collection Instructions Purpose: This test measures substances in your urine over a 24-hour period to help diagno se or monitor certain conditions. Supplies Needed: * Large collection container (provided by the lab or clinic) * Urine hat or collection device (optional, for easier collection) * Labels (if provided) Instructions: * Start Time: * Choose a day when you can be at home or have easy access to a bathroom. * When you wake up in the morning,?urinate into the toilet?(do not collect this first urine). * Note the exact time. This is your start time. * Collect All Urine: * For the next 24 hours,?collect all urine?you pass into the provided container. * Each time you urinate, collect it in the container. If you use a separate collection device, pour the urine into the main container each time. * Store the container in a cool place, preferably in a refrigerator or on ice, during the collection period. * End Time: * Exactly 24 hours after your start time,?urinate one last time?and add this urine to the container. * This completes the collection. * After Collection: * Make sure the lid is tightly closed. * Label the container with your name, date, and collection times if required. * Return the container to the lab or clinic as soon as possible, keeping it cool during transport. Important Tips: * Do not miss any urine during the 24-hour period. If you do, contact the office as the test may need to be repeated. * Do not allow toilet paper, stool, or other materials to get into the container. * Continue your usual diet and fluid intake unless instructed otherwise. Please have the bloodwork done the day you bring the urine collection to the lab Recommended place for the labs: [address] [place] [id number] Coding Level of Care Code New Pt Level 5 (10837) Diagnoses Osteoporosis M81.0 Time Spent (min) 60 Comment Time spent on review of previous records, history, exam/plan and patient education.
--- OUTSIDE RECORDS SUMMARY | 2025-07-25 13:29 | XMS_ITS | Clinical Summary ---
Author Organization [facility] Address [address] [place] [address] Care Team Providers Care Rustic Fence Builder Name Role Phone Sonal Sandhu Primary Care Provider [phone] Surgical History Surgery Date Site/Laterality Comments COLONOSCOPY 04/01/2017 PROCEDURE: HISTORICAL COLONOSCOPY; COMMENT: Dr archer, small int hemorrhoid only finding HYSTERECTOMY PROCEDURE: HISTORICAL HYSTERECTOMY ESOPHAGOGASTRODUODENOSCOPY 04/01/2017 PROCEDURE: CO ESOPHAGOGASTRODUODENOSCOPY TRANSORAL DIAGNOSTIC; COMMENT: Dr Archer, normal [...] depression 05/21/2017 DX:Major depres alvin; COMMENT: F/u [facility] Vascular dementia ([facility] V 24, [facility] V28) 05/21/2017 DX:Vascular dementia ([facility]); COMMENT: F/u Dr. Gilliland Osteopenia 05/21/2017 DX:Osteopenia; [...] Last Done Comments Breast Cancer Screening 1960 Colorectal Cancer Screening: Colonoscopy 1960 COVID-19 Vaccine (#1) 02/02/1964 DTaP,Tdap,and Td Vaccines (1 - Tdap) 1978 Pneumococcal Vaccine: 50+ Ye ars (1 of 2 - PCV) 1978 Zoster Vaccines (1 of 2) 1978 RSV Immunization Adult Patie nts (1 - Risk 60-74 years 1-dose series) 2019 Hepatitis C Screening 09/17/2022 Osteoporosis Screening (Bone Density Screening) 09/17/2022 Social Influencers of Health Screening 09/17/2022 Falls Risk Assessment 02/02/2024 Depression Screening 10/19/2024 Influenza Vaccine (#1) 2025 HIB Vaccines Aged [...] age to complete this topic Care Teams Rustic Fence Builder Relationship Specialty Start Date End Date Sonal Sandhu PA [address] [place] [address] PCP - General Internal Medicine 04/13/19
--- OUTSIDE RECORDS SUMMARY | 2025-07-25 13:29 | XMS_ITS | Clinical Summary ---
Author Organization [facility] Address [address] [place] [id number] Phone Care Team Providers Care Blade Balancer Name Role Phone Sonal Sandhu PA-C Primary Care Provider Social History Tobacco Use Types Packs/Day Years Used Date Smoking Tobacco: Never Assessed Education Answer Date Recorded Are you interested in more education? Not on ramiro e 10/20/2024 Are you concerned about learning? Not on file 10/20/2024 No 10/20/2024 No 10/20/2024 Digital Access Answer Date Recorded No 10/20/2024 No 10/20/2024 Reliable internet access at home? Not on file 10/20/2024 Device with a working camera? Not on file Comments Unknown Sex and Gender Information Value Date Recorded Sex Assigned at Not on file Legal Sex Female 10:44 AM EST Gender Identity Not on file Sexual Orientation Not on file Plan of Treatment Upcoming Encounters Date Type Department Care Team (Late st Contact Info) Description 09/18/2025 1:00 PM EST Office Visit [facility] [address] [place] [id number] Keri Regan MD [address] [address] [email or web address] Maintenance Due Date Last Done Comments Adult Td,Tdap Booster 1959 DEPRESSION SCREENING 1971 SMOKING Hx and SMOKELESS TOBACCO SCREENING 02/02/1972 HEPATITIS C SCREENING 1977 COLOGUARD 02/02/2004 COLONOSCOPY 02/02/2004 COLORECTAL CANCER SCREENING 02/02/2004 FIT TEST 02/02/2004 FOBT 02/02/2004 SIGMOIDOSCOPY 02/02/2004 VIRTUAL COLONOSCOPY 02/02/2004 PNEUMOCOCCAL VACCINES (50+ years) (1 of 1 - PCV) 2009 ZOSTER VACCINES (1 of 2) 2009 OSTEOPOROSIS SCREENING INITI AL (ONE-TIME) 02/02/2024 INFLUENZA VACCINE (#1) 2025 COVID-19 VACCINE (1 - 2024-2 6 season) 2025 MAMMOGRAM 04/26/2026 04/26/2024 LIPID PANEL 11/28/2027 11/28/2022, 11/28/2022, 01/22/2022 RSV VACCINE (1 - 1-dose 75+ series) 2034 HEPATITIS A VACCINES Aged Out No long er eligible based on patient's age to complete this topic HIB VACCINES Aged Out No longer eligi ble based on patient's age to complete this topic MENINGOCOCCAL VACCINES (ACWY) Aged Out No longer eligible based on patient's age to complete this topic MENINGOCOCCAL VACCINES (B) Aged Out N o longer eligible based on patient's age to complete this topic Medical Devices Not on file Insurance [facility] MEDIC[facility] PART A & B [place] MED[place] PART A & [address] [place] [address]HEALTH MEDICARE PART A & [place] A & [facility] B [facility]IC[facility] PART A & B Care Teams Blade Balancer Relationship Specialty Start Date End Date Sonal Sandhu PA-C [address] [place] [address] PCP - General Physician Complaint Clerk 10/20/24 Additional Source Comments The information contained in this document represents components of the legal health record. It is not the complete legal health record.[facility]
== END 2025-07-25 11:50 | disposition home or self-care (01) ==
LOC: HO.ENCR 10:56
PROVIDERS: PCP Physician Assistant; Visit Provider Student in an Organized Health Care Education/Training Program
DX: M81.0 Age-related osteoporosis without current pathological fracture (principal)
CPT/HCPCS: 99205

== ENCOUNTER → 2025-07-25 10:56 | Outpatient (BNVA) | payer MEDICARE, MEDICAID, SELFPAY | PROVIDERS: PCP Physician Assistant; Visit Provider Student in an Organized Health Care Education/Training Program | DX: M81.0 Age-related osteoporosis without current pathological fracture (principal) | CPT/HCPCS: 99202 ==

== ENCOUNTER 2025-10-04 08:59 | Outpatient (AMB) | payer MEDICARE, MEDICAID, SELFPAY ==
[2025-10-04 09:02] VITALS: BP 128/58; PULSE 72; BMI 21.9
--- NOTE | 2025-10-04 09:02 | MHC.OFFVIS ---
Vital Signs 10/04/25 09:02 Height 5 ft 3 in Weight 123 lb 7.342 oz BMI 21.9 BP 128/58 L Blood Pressure Location Lt brachial Position Sitting Pulse 72 Intake Visit Reasons: f/u abdominal pains Intake Note: Georgiana presents in the office as a follow up for abdominal pains. CC: She states that she had a test and here for results. Pains in the stomach still. She states sometimes her food get stuck in the throat. Transit Manager Required: No Allergies nitrofurantoin (Macrobid) Allergy (Severe, Verified 10/04/25 09:06) Infection HPI Comments Details: This is a 63y.o F with PMH of multiple pulmonary nodules who is here for follow up. 07/31/23: Previous GI used to be at [facility] who recently left so she is looking to switch providers. Was last seen there a year ago. Has had an EGD and colo 3-4 years ago. Reports having polyps removed from the colon. Pt reports that she has been having abd discomfort in epigastrium that radiates to her R side. Started almost 3 months ago. Assoc with nausea and loss of appetite but no unintentional weight loss. Pain is often postprandial, not assoc with bowel habit changes. Did take PPI for this which did not help much. Does not take any NSAIDs. No recent travel. She also mentions that she was told about absorption issues after she had a dexa scan that showed weak bones. 11/16/23: Was lost to follow up when office tried multiple times to contact her for EGD. Now returning for follow up for essentially unchanged upper GI complaints. Reports frequent postprandial abd discomfort with nausea. Also reports losing 50 lbs in a year however NOT corroborated by weights in chart, remains stable. Labs were reviewed with the pt and are all normal. Pt also had a dexa scan at [facility] last month that confirms osteoporosis. 12/22/23: Irregular Z line (biopsy) Hiatal hernia Gastric polyps Normal gastric mucosa (biopsy) Normal duodenum (biopsy) Path: A. Duodenum, biopsy: Duodenal mucosa within normal limits; preserved villous architecture and no increase in intraepithelial lymphocytes seen. B. Stomach, biopsy: Gastric antral mucosa with mild chronic inactive gastritis; gastric body mucosa within normal limits; negative for Helicobacter pylori, intestinal metaplasia and dysplasia. C. Gastroesophageal junction, biopsy: Squamous and columnar junctional mucosa with mild chronic active inflammation; negative for intestinal metaplasia and dysplasia. 01/06/24: Here for post EGD follow up. Results of the EGD and path reviewed which are overall reassuring. Reports no change in sx. Still complains of chest pain and pressure with bloating. Has been taking omeprazole. Stopped her nortriptyline a few months ago - she is unsure if she ran out or was asked to stop it to avoid a drug interaction. In fact tells me she stopped all her meds a few weeks ago. From chart review - has hx of anxiety and adjustment disorder. Used to see [facility] but could not form a rapport with the new therapist so stopped going 2 years ago. Also noted to have osteoporosis on dxa 09/2023 but has not been seen by endocrine. 02/22/24: Here for follow up with her partner. Reports an array of abd complaints as well as headache and numbness in her face. Has still not resumed any of the meds, in fact tells me her PCP and program schedule clerk advised her to cont to stay off all meds for now. Only taking omeprazole epr her report. In terms of her persistent complaint of abd discomfort with bloating and poor appetite a CT abd/pel was ordered. This is miles for 02/24. 03/25/24: Here for follow up. CT 02/24: No acute abnormality in the abdomen or pelvis. Constipation. Reports improvement in epigastric discomfort and RUQ pain since starting notriptyline. OCc has break through pain may be once a week. Does not recall the nortriptyline dose that shes taking. 07/04/24: 3 month follow up. Continues with constellation of complaints including abd pain, N,V constipation. Also remains worried about weight loss although weight curve stable per [employer]. Reports stopped taking nortriptyline as was also started on escitalopram. She is unsure who initiated this medication. Pharmacist advised her to take either of the two so shes only taking escitalopram as it seemed to be helping her anxiety. Pt today mentions that she in fact did get a letter from [facility] for colo follow up, so is actually due this year and not 2024. 11/23/24: Here for follow up. Canceled her colonoscopy appt last month as pt was under the impression she had one recently. ALso had covid. Pt reports she was able to call [facility] and find out her colonoscopy was in March 2017. She is now amenable to miles this. ALso getting pulm work up done for chronic RML mucus plugging. Bronchoscopy pending. 12/09/24: Here as urgent visit for R flank pain and burning which shifts to L side if she lays on that side. Ongoing x 1 week. Being managed as possible post herpetic neuralgia by her rate clerk. No other GI complaints with this to include changes in appetite, N/V. Pt had brought up occ dysphagia to rate clerk, but does not report any significant burdent of sx to me today. In fact inquires if needs to do barium swallow as already has had almost 10 XRay/CTs in the past year. 03/09/25: EGD/colo 1. Irregular Z line (biopsy, tissue cypher) 2. Hiatal hernia 3. Normal stomach (biopsy) 3. Normal duodenum 5. Normal colon and terminal ileum mucosa 6. 2 polyps removed 7. Internal and external hemorrhoids Path: A. Stomach, antrum, biopsy: Gastric antral mucosa with mild chronic inactive gastritis; negative for Helicobacter pylori, intestinal metaplasia and dysplasia. B. Stomach, body, biopsy: Gastric body mucosa within normal limits; negative for Helicobacter pylori, intestinal metaplasia and dysplasia. C. Gastroesophageal junction, biopsy: Squamocolumnar junctional mucosa with mild chronic inflammation; negative for intestinal metaplasia and dysplasia. D. Stomach, polyp, biopsy: Polypoid gastric body mucosa with mild PPI effect; negative for Helicobacter pylori, intestinal metaplasia and dysplasia. E. Rectum, polypectomy: Hyperplastic polyp. F. Colon, transverse, polypectomy: Tubular adenoma; negative for high-grade dysplasia. 03/20/25: Pt here for post procedure follow up. Accompanied by her . Cont to have intermittent R sided abd pain with nausea. This does not get better with PPI. Reviewed that no gastritis and/or duodenitis noted on EGD so not surprised pain doesnt get better with PPI. Likely 2/2 functional dyspepsia and would recommend TCA trial - pt recalls was put on this almost 3-5 years ago as well but then stopped taking it. Currently NOT taking any meds including escitalopram. Pt also reports diffuse body aches and joint pains. Has known osteoporosis but not on Vit D supplementation or anti resporptive therapy. Last dexa was over 5 years ago per her report. 06/21/25: Here for follow up. Reports persistent sensation of globus and has to frequently clear her throat. Occ getting abd pain but reports good respobse to nortiptyline. Has improved the appetite and energy levels. However pt also reports blurry vision and dry eyes. Initially plan was to increase it to 30 but will hold off for now. 10/04/25: The patient is presenting for follow-up of functional dyspepsia. Accompanied by her partner. She has been feeling unwell with generalized body pain. For her abdominal pain, which is located on the R side and radiates to her stomach, [place] was [place] [facility] [place] was normal. To recall she has had extensive evaluation for this non-progressive pain that is episodic. She was ultimately determined to have FD and was started on nortriptyline. At the prev visit she reported excellent response to this and so this was continued. However, she ran out of the medication last month and never remembered to pick it up. reports he just picked up the Rx yesterday. The patient also reports a sensation of food getting stuck and regurgitation. A prior endoscopy in February and a barium swallow were performed for this that showed no narrowing, though she does have reflux without esophagitis. She is taking omeprazole. --- Pt was informed and consented to the use of ambient scribe for this encounter. --- [facility] Medical History Asthma Pneumonia Osteopenia Hiatal hernia with GERD Post herpetic neuralgia Chest pain Chronic cough Pulmonary nodules Surgical History Hx of colonoscopy History of esophagogastroduodenoscopy (EGD) Family History Father No problems noted. Mother No problems noted. Social History Alcohol intake: current Alcohol intake frequency: does not drink Patient Tobacco Use Status: Never used Tobacco Review of Systems Narrative Review of Systems Const All systems reviewed & are unremarkable except as noted in HPI and below Physical Exam Exam Exam: NAD Nonicteric Examination of the back and flanks revealed no palpable lump. Vital Signs: Last Vital Signs Pulse 72 10/04/25 09:02 BP 128/58 L 10/04/25 09:02 BMI result Body Mass Index 21.9 Results Reviewed Results Reviewed: MRI Abdomen (September 17 scanned): Results reviewed and noted to be normal, showing a healthy liver and pancreas with a surgically absent gallbladder. Assessment & Plan Assessment & Plan (1) GERD (gastroesophageal reflux disease): Code(s): K21.9 - Gastro-esophageal reflux disease without esophagitis Category: Medical (2) Functional dyspepsia: Code(s): K30 - Functional dyspepsia Category: Medical (3) Abdominal pain: Code(s): R10.9 - Unspecified abdominal pain Category: Medical Plan 1. Functional dyspepsia Epigastric distress has returned after pt inadvertently self discontinued nortriptyline. She is aware to resume this. Plan: - Resume nortriptyline 25 mg. - She has an adequate supply at home. - We also reviewed the extensive number of radiographic studies she has had and advised her to avoid repeat CT/XR unless there is a change in her known symptoms. 3. Gastroesophageal reflux disease -Cont omeprazole 4. Back and side pain - The patient reports an intermittent, palpable lump which was not found on today's exam. Pt was reassured that no abnormal mass or lymph node noted on previous CT scan. Follow up 4 months Coding Level of Care Code Est Pt Level 3 (02509) Diagnoses GERD (gastroesophageal reflux disease) K21.9 Functional dyspepsia K30 Abdominal pain R10.9
--- OUTSIDE RECORDS SUMMARY | 2025-10-04 09:45 | XMS_ITS | Clinical Summary ---
Author Organization [employer] [facility] Address [address] [place] [phone] Phone Care Team Providers Care Data Integration Architect Name Role Phone Sonal Sandhu PA-C Primary [...] Orientation Not on file Plan of Treatment Health Maintenance Due Date [...] topic Medical Devices Not on file [facility] & B [employer] MEDICARE PART A & B MEDICARE PART A & B [employer] MEDICARE PART A & B MEDICARE PART A & B MEDICARE PART A & B Care Teams Data Integration Architect Relationship Specialty Start Date End Date Sonal Sandhu PA-C [address] [place] [address] PCP - General Physician Public Relations Director 10/20/24 Additional Source Comments The information contained in this document represents components of the legal health record. It is not the complete legal health record.[facility]
--- OUTSIDE RECORDS SUMMARY | 2025-10-04 09:45 | XMS_ITS | Clinical Summary ---
Author Organization [employer] [facility] Address [address] [place] [address] Care Team Providers Care Research Chemist Name Role Phone Sonal Sandhu Primary Care Provider [phone] Surgical History Surgery Date Site/Laterality Comments COLONOSCOPY [...] depression 05/21/2017 DX:Major depres alvin; COMMENT: F/u [facility] Vascular dementia ([facility] V 24, [facility] V28) 05/21/2017 DX:Vascular dementia ([facility]); COMMENT: F/u Dr. Gilliland Osteopenia 05/21/2017 [...] Immunization Adult Patie nts (1 - Risk 50-74 years 1-dose series) 2009 Hepatitis C Screening 09/17/2022 Osteoporosis Screening (Bone [...] age to complete this topic Care Teams Research Chemist Relationship Specialty Start Date End Date Sonal Sandhu PA [address] [place] [address] PCP - General Internal Medicine 04/13/19
== END 2025-10-04 09:34 | disposition home or self-care (01) ==
LOC: HO.HGI 09:00
PROVIDERS: PCP Physician Assistant; Visit Provider Internal Medicine
DX: K21.9 Gastro-esophageal reflux disease without esophagitis (principal); K30 Functional dyspepsia; R10.9 Unspecified abdominal pain
CPT/HCPCS: 99213

== ENCOUNTER → 2025-10-04 08:59 | Outpatient (BNVA) | payer MEDICARE, MEDICAID, SELFPAY | PROVIDERS: PCP Physician Assistant; Visit Provider Internal Medicine | DX: K21.9 Gastro-esophageal reflux disease without esophagitis (principal); R10.9 Unspecified abdominal pain; K30 Functional dyspepsia | CPT/HCPCS: 99212 ==